=== PATIENT | male | born 1940 | race Caucasian/White ===

== ENCOUNTER 2023-09-19 19:50 | Inpatient (IN) | payer OTHER, MEDICARE ==
--- NOTE | 2023-09-19 19:59 | ED ---
Fall HPI <Julián Landry Amy - Last Filed: 09/19/23 20:05> - General Source: patient, family, EMS Mode of arrival: EMS - History of Present Illness MD Complaint: fall <Julián Tyson - Last Filed: 09/19/23 22:12> - General Chief Complaint: Fall Stated Complaint: Fall on thinner Time Seen by Provider: 09/19/23 19:50 - History of Present Illness Initial Comments: 83-year-old male who was changing a light bulb weakness feeling patient was seen and evaluated as his balance and fell onto a wooden floor striking his left hip. He denies any head neck or back injury any abdominal pain just pain to his left hip area. He was brought in by EMS he was given immediate treatment. He was brought in with a cervical collar. He denies any neck pain. He is on blood thinning medication. No other current complaints or modifying factors he was declared to be a libertarian to trauma. (Julián Tyson) - Related Data Allergies Allergy/AdvReac Type Severity Reaction Status Date / Time No Known Allergies Allergy Verified 09/19/23 19:56 Review of Systems ROS Other: All systems not noted in ROS Statement are negative. <CarlosJulián wang - Last Filed: 09/19/23 20:05> ROS Other: All systems not noted in ROS Statement are negative. <Julián Tyson - Last Filed: 09/19/23 22:12> ROS Statement: Those systems with pertinent positive or pertinent negative responses have been documented in the HPI. General Exam Limitations: no limitations General appearance: alert, anxious Head exam: Present: atraumatic, normocephalic, normal inspection Eye exam: Present: normal appearance, PERRL, EOMI. Absent: scleral icterus, conjunctival injection, periorbital swelling ENT exam: Present: normal exam, mucous membranes moist Neck exam: Present: normal inspection, full ROM, other (No stridor JVD or bruits, I did clear the C-spine clinically and remove the collar.). Absent: tenderness, meningismus, lymphadenopathy Respiratory exam: Present: normal lung sounds bilaterally. Absent: respiratory distress, wheezes, rales, rhonchi, stridor Cardiovascular Exam: Present: normal rhythm, bradycardia, normal heart sounds. Absent: systolic murmur, diastolic murmur, rubs, gallop, clicks GI/Abdominal exam: Present: soft, normal bowel sounds. Absent: distended, tenderness, guarding, rebound, rigid, bruit, pulsatile mass Rectal exam: Present: deferred exam: Present: normal inspection Extremities exam: Present: other (The patient does have shortening and lateral rotation of the left lower extremity with tenderness over the hip he does have a hip binder on at this time.) Back exam: Present: normal inspection, full ROM. Absent: tenderness Neurological exam: Present: alert, oriented X3, CN II-XII intact Psychiatric exam: Present: normal affect, anxious Skin exam: Present: warm, dry, normal color (Abrasion seen over the dorsal aspect of the left hand over the fourth and fifth distal metacarpals.) <Julián Tyson - Last Filed: 09/19/23 22:12> - General Exam Comments Initial Comments: This is a well-developed well-nourished awake alert oriented x 4 male with a [place] Coma Scale 15 he did have a cervical collar in place. (Julián Tyson) Course <Julián Landry - Last Filed: 09/19/23 20:05> <Julián Tyson - Last Filed: 09/19/23 22:12> Vital Signs 09/19/23 19:53 Pulse Rate 48 L Respiratory 16 Rate Blood Pressure 125/68 O2 Sat by Pulse 95 Oximetry - Reevaluation(s) Reevaluation #1: 09/19/231954 Patient evaluated, complaining of left hip pain, no head or neck trauma, no chest or abdominal pain. Traumatic workup is pending. Patient evaluated as a level 2 trauma given mechanism. (Julián Landry) Reevaluation #2: 09/19/23 20:17 Patient was a P2 T trauma I did discuss the case with Dr. Shah who did call back. (Julián Tyson) Medical Decision Making - Lab Data Result diagrams: 09/19/23 19:50 09/19/23 19:50 - EKG Data -: EKG Interpreted by Me <Julián Tyson - Last Filed: 09/19/23 22:12> - Medical Decision Making The patient was brought in as a priority 2 trauma he is on platelet inhibitors he did fall from a bed onto a wooden floor. Workup consisted of labs and imaging. I did interpret the imaging he does have a intertrochanteric fracture of the left hip I did discuss the case initially with Dr. Shah and then finally with Dr. Schuster. Patient will be admitted to orthopedics with surgery sometime tomorrow for repair of the hip likely. Was pt. sent in by a medical professional or institution (, JOSUE, SPLITTER OPERATOR, urgent care, hospital, or retirement...) When possible be specific @ -No Did you speak to anyone other than the patient for history (EMS, parent, family, police, friend...)? What history was obtained from this source @ -EMS and the patient's sister Did you review nursing and triage notes (agree or disagree)? Why? @ -I reviewed and agree with nursing and triage notes Were old charts reviewed (outside hosp., previous admission, EMS record, old EKG, old radiological studies, urgent care reports/EKG's, retirement records)? Report findings @ -No old charts were reviewed Differential Diagnosis (chest pain, altered mental status, abdominal pain women, abdominal pain men, vaginal bleeding, weakness, fever, dyspnea, syncope, headache, dizziness, GI bleed, back pain, seizure, CVA, palpatations, mental health, musculoskeletal)? @ -Fall, left hip pain EKG interpreted by me (3pts min.). @ -As above patient's EKG was interpreted by me sinus bradycardia rate of 54 NV interval 211 QRS duration 110 QT/QTc 490/476 low voltage incomplete right bundle branch block nonspecific ST configuration some artifact present X-rays interpreted by me (1pt min.). @ -Chest x-ray interpreted by me no evidence of acute process the x-ray of the pelvis and left hip shows evidence of a left intertrochanteric hip fracture of t he pelvis does appear to be intact. CT interpreted by me (1pt min.). @ -None done U/S interpreted by me (1pt. min.). @ -None done What testing was considered but not performed or refused? (CT, X-rays, U/S, labs)? Why? @ -None What meds were considered but not given or refused? Why? @ -None Did you discuss the management of the patient with other professionals (professionals i.e. , JOSUE, SPLITTER OPERATOR, lab, RT, psych nurse, social worker assistant, safety clothing and equipment developer, teacher, legal compliance officer, case finisher)? Give summary @ -I did discuss the findings and case with Dr. Shah and with Dr. Schuster the patient was a prior to trauma Was smoking cessation discussed for >3mins.? @ -No Was critical care preformed (if so, how long)? @ -40 Were there social determinants of health that impacted care today? How? (Homelessness, low income, unemployed, alcoholism, drug addiction, transportation, low edu. Level, literacy, decrease access to med. care, shelter, rehab)? @ -No Was there de-escalation of care discussed even if they declined (Discuss DNR or withdrawal of care, Hospice)? DNR status @ -No What co-morbidities impacted this encounter? (DM, HTN, Smoking, COPD, CAD, Cancer, CVA, ARF, Chemo, Hep., AIDS, mental health diagnosis, sleep apnea, morbid obesity)? @ -None Was patient admitted / discharged? Hospital course, mention meds given and route, prescriptions, significant lab abnormalities, going to OR and other pertinent info. @ -Hospital course patient was admitted to the hospital for inpatient treatment planned repair of the left hip fracture n.p.o. after midnight Undiagnosed new problem with uncertain prognosis? @ -No Drug Therapy requiring intensive monitoring for toxicity (Heparin, Nitro, Insulin, Cardizem)? @ -No Were any procedures done? @ -No Diagnosis/symptom? @ -Acute left hip fracture, fall, abrasions Acute, or Chronic, or Acute on Chronic? @ -Acute Uncomplicated (without systemic symptoms) or Complicated (systemic symptoms)? @ -Complicated Side effects of treatment? @ -No Exacerbation, Progression, or Severe Exacerbation? @ -No Poses a threat to life or bodily function? How? (Chest pain, [place], [place], pneumonia, PE, COPD, DKA, ARF, appy, cholecystitis, CVA, Diverticulitis, Homicidal, Suicidal, threat to staff... and all critical care pts) @ -Potential (Julián Tyson) - Lab Data Lab Results 09/19/23 09/19/23 09/19/23 Range/Units 19:40 19:50 19:50 WBC 4.5 (3.8-10.6) k/uL RBC 3.75 L (4.30-5.90) m/uL Hgb 12.2 L (13.0-17.5) gm/dL Hct 37.0 L (39.0-53.0) % MCV 98.7 (80.0-100.0) fL MCH 32.5 (25.0-35.0) pg MCHC 33.0 (31.0-37.0) g/dL RDW 15.0 (11.5-15.5) % Plt Count 141 L (150-450) k/uL MPV 7.6 Neutrophils % 73 % Lymphocytes % 19 % Monocytes % 4 % Eosinophils % 2 % Basophils % 1 % Neutrophils # 3.3 (1.3-7.7) k/uL Lymphocytes # 0.9 L (1.0-4.8) k/uL Monocytes # 0.2 (0-1.0) k/uL Eosinophils # 0.1 (0-0.7) k/uL Basophils # 0.0 (0-0.2) k/uL Macrocytosis Slight PT 10.9 (10.0-12.5) sec INR 1.0 (<1.2) APTT 23.1 (22.0-30.0) sec Sodium (137-145) mmol/L Potassium (3.5-5.1) mmol/L Chloride (98-107) mmol/L Carbon Dioxide (22-30) mmol/L Anion Gap mmol/L BUN (9-20) mg/dL Creatinine (0.66-1.25) mg/dL Est GFR (CKD-EPI)AfAm (>60 ml/min/1.73 sqM) Est GFR (CKD-EPI)NonAf (>60 ml/min/1.73 sqM) Glucose (74-99) mg/dL POC Glucose (mg/dL) (70-110) mg/dL POC Glu [employer] T[employer] Trimmer ID Calcium (8.4-10.2) mg/dL Total Bilirubin (0.2-1.3) mg/dL AST (17-59) U/L ALT (4-49) U/L Alkaline Phosphatase (38-126) U/L Troponin I (0.000-0.034) ng/mL Total Protein (6.3-8.2) g/dL Albumin (3.5-5.0) g/dL Serum Alcohol mg/dL Blood Type Blood Type Confirm O Positive Blood Type Recheck Bld Type Recheck Status Antibody Screen Spec Expiration Date 09/19/23 09/19/23 09/19/23 Range/Units 19:50 19:50 19:50 WBC (3.8-10.6) k/uL RBC (4.30-5.90) m/uL Hgb (13.0-17.5) gm/dL Hct (39.0-53.0) % MCV (80.0-100.0) fL MCH (25.0-35.0) pg MCHC (31.0-37.0) g/dL RDW (11.5-15.5) % Plt Count (150-450) k/uL MPV Neutrophils % % Lymphocytes % % Monocytes % % Eosinophils % % Basophils % % Neutrophils # (1.3-7.7) k/uL Lymphocytes # (1.0-4.8) k/uL Monocytes # (0-1.0) k/uL Eosinophils # (0-0.7) k/uL Basophils # (0-0.2) k/uL Macrocytosis PT (10.0-12.5) sec INR (<1.2) APTT (22.0-30.0) sec Sodium 135 L (137-145) mmol/L Potassium 3.4 L (3.5-5.1) mmol/L Chloride 106 (98-107) mmol/L Carbon Dioxide 23 (22-30) mmol/L Anion Gap 6 mmol/L BUN 13 (9-20) mg/dL Creatinine 0.81 (0.66-1.25) mg/dL Est GFR (CKD-EPI)AfAm >90 (>60 ml/min/1.73 sqM) Est GFR (CKD-EPI)NonAf 83 (>60 ml/min/1.73 sqM) Glucose 119 H (74-99) mg/dL POC Glucose (mg/dL) (70-110) mg/dL POC Glu [employer] Trimmer ID Calcium 9.1 (8.4-10.2) mg/dL Total Bilirubin 0.8 (0.2-1.3) mg/dL AST 20 (17-59) U/L ALT 14 (4-49) U/L Alkaline Phosphatase 101 (38-126) U/L Troponin I <0.012 (0.000-0.034) ng/mL Total Protein 6.1 L (6.3-8.2) g/dL Albumin 3.6 (3.5-5.0) g/dL Serum Alcohol <10 mg/dL Blood Type O Positive Blood Type Confirm Blood Type Recheck No Previous Record Bld Type Recheck Status CABO Indicated Antibody Screen NEGATIVE Spec Expiration Date 09/22/2023 - 234909/19/23 Range/Units 20:16 WBC (3.8-10.6) k/uL RBC (4.30-5.90) m/uL Hgb (13.0-17.5) gm/dL Hct (39.0-53.0) % MCV (80.0-100.0) fL MCH (25.0-35.0) pg MCHC (31.0-37.0) g/dL RDW (11.5-15.5) % Plt Count (150-450) k/uL MPV Neutrophils % % Lymphocytes % % Monocytes % % Eosinophils % % Basophils % % Neutrophils # (1.3-7.7) k/uL Lymphocytes # (1.0-4.8) k/uL Monocytes # (0-1.0) k/uL Eosinophils # (0-0.7) k/uL Basophils # (0-0.2) k/uL Macrocytosis PT (10.0-12.5) sec INR (<1.2) APTT (22.0-30.0) sec Sodium (137-145) mmol/L Potassium (3.5-5.1) mmol/L Chloride (98-107) mmol/L Carbon Dioxide (22-30) mmol/L Anion Gap mmol/L BUN (9-20) mg/dL Creatinine (0.66-1.25) mg/dL Est GFR (CKD-EPI)AfAm (>60 ml/min/1.73 sqM) Est GFR (CKD-EPI)NonAf (>60 ml/min/1.73 sqM) Glucose (74-99) mg/dL POC Glucose (mg/dL) 130 H (70-110) mg/dL POC Glu [employer] T[employer] Trimmer ID Apolinar Roa Calcium (8.4-10.2) mg/dL Total Bilirubin (0.2-1.3) mg/dL AST (17-59) U/L ALT (4-49) U/L Alkaline Phosphatase (38-126) U/L Troponin I (0.000-0.034) ng/mL Total Protein (6.3-8.2) g/dL Albumin (3.5-5.0) g/dL Serum Alcohol mg/dL Blood Type Blood Type Confirm Blood Type Recheck Bld Type Recheck Status Antibody Screen Spec Expiration Date Critical Care Time Critical Care Time: Yes Total Critical Care Time: 40 <Julián Tyson - Last Filed: 09/19/23 22:12> Disposition <Julián Landry - Last Filed: 09/19/23 20:05> Time of Disposition: 21:30 Decision Date: 09/19/23 Decision Time: 21:30 <Julián Tyson - Last Filed: 09/19/23 22:12> Clinical Impression: Fall, Closed left hip fracture, Abrasions of multiple sites Disposition: ADMITTED IP TO THIS [facility] Condition: Stable Referrals: [facility] [Primary Care Provider] - 1-2 days
[2023-09-19] MEDS: DIPH,PERTUS(ACELL)TETVAC-LF 0.5 ML VIAL IM ONE (20:07)
[2023-09-19 20:19] LABS: Basophils % (A) 1 %; Eosinophils # (A) 0.1 k/uL (0-0.7); Eosinophils % (A) 2 %; HGB 12.2 gm/dL (13.0-17.5); Lymphocytes # (A) 0.9 k/uL (1.0-4.8); Lymphocytes % (A) 19 %; MCH 32.5 pg (25.0-35.0); MCV 98.7 fL (80.0-100.0); Macrocytosis Slight; Mean Platelet Volume 7.6; Monocytes # (A) 0.2 k/uL (0-1.0); Monocytes % (A) 4 %; Neutrophils # (A) 3.3 k/uL (1.3-7.7); Neutrophils % (A) 73 %; Platelet Count 141 k/uL (150-450); RBC 3.75 m/uL (4.30-5.90); WBC 4.5 k/uL (3.8-10.6)
[2023-09-19 20:27] LABS: Glucose,Whole Blood 130 mg/dL (70-110)
[2023-09-19 20:28] LABS: Partial Thromboplastin Time 23.1 sec (22.0-30.0); Prothrombin Time 10.9 sec (10.0-12.5)
[2023-09-19 20:30] LABS: ALT 14 U/L (4-49); AST 20 U/L (17-59); African American GFR (CKD) >90 (>60 ml/min/1.73 sqM); Albumin 3.6 g/dL (3.5-5.0); Alcohol <10 mg/dL; Alkaline Phosphatase 101 U/L (38-126); Anion Gap 6 mmol/L; Blood Urea Nitrogen 13 mg/dL (9-20); Calcium 9.1 mg/dL (8.4-10.2); Carbon Dioxide 23 mmol/L (22-30); Chloride 106 mmol/L (98-107); Glucose 119 mg/dL (74-99); Non-African American GFR(CKD) 83 (>60 ml/min/1.73 sqM); Potassium 3.4 mmol/L (3.5-5.1); Sodium 135 mmol/L (137-145); Total Bilirubin 0.8 mg/dL (0.2-1.3); Total Protein 6.1 g/dL (6.3-8.2)
--- NOTE | 2023-09-19 20:51 | XR ---
EXAMINATION: XR chest 1V portable DATE AND TIME: 09/19/2023 8:13 PM CLINICAL INDICATION: PHH; trauma TECHNIQUE: Supine AP portable COMPARISON: None FINDINGS: The lungs are predominantly clear. There is mild silhouetting of the pulmonary vasculature bilaterall y, particularly within the lung bases, by a fine reticular pattern of increased density. This could c orrelate with the clinical diagnosis of mild interstitial pulmonary edema. There are no abnormal gas collections seen. However, pneumothorax and pneumoperitoneum cannot be excl uded supine radiography. The cardiac silhouette is not enlarged. The mediastinum does not appear widened. The skeletal structures and soft tissues are negative for acute findings. IMPRESSION: No definite acute radiographic process, although mild interstitial phase pulmonary edema may be prese nt.
--- NOTE | 2023-09-19 20:54 | XR ---
PROCEDURE: XR pelvis AP view - 1V DATE AND TIME: 09/19/2023 8:13 PM CLINICAL INDICATION: PHH; Trauma TECHNIQUE: Department protocol COMPARISON: None FINDINGS / IMPRESSION: There is an oblique lucency through the intertrochanteric region of the left femur, consistent with i ntertrochanteric hip fracture. No other fracture.
--- NOTE | 2023-09-19 21:01 | XR ---
PROCEDURE: XR Hip Complete LT - 2V DATE AND TIME: 09/19/2023 8:48 PM CLINICAL INDICATION: PHH; Trauma TECHNIQUE: Department protocol COMPARISON: None FINDINGS / IMPRESSION: AP and crosstable lateral views were obtained. Left intertrochanteric hip fracture seen, which appear s noncomminuted and nondisplaced. Femoral head well seated within the acetabulum.
[2023-09-19] MEDS ORDERED: NALOXONE 0.4 MG/ML 1 ML VIAL IV PRN (22:14)
[2023-09-19] MEDS: SODIUM CHLORIDE 0.9% 1,000 ML IV SCH (23:35)
[2023-09-19] MEDS: HYDROmorphone 1 MG/ML 1 ML SYRINGE IVP PRN (23:36)
[2023-09-20] MEDS: ONDANSETRON 4 MG/2 ML VIAL IVP PRN (00:12)
--- NOTE | 2023-09-20 05:21 | P.CONS ---
History of Present Illness - Reason for Consult Consult date: 09/20/23 Preop medical clearance - Chief Complaint Fall - History of Present Illness 83-year-old male with HIV Patient coming in for evaluation after sustaining a fall and as he was up a ladder trying to replace some lighting on a ceiling fan missed a step and fell down denies any head injury denies any loss of consciousness however he immediately felt a lot of pain and could not stand up or weight-bear he was brought into the hospital for evaluation found to have left hip fracture. Patient denies being on any blood thinners or antiplatelets. Denies any cardiac history or stroke Patient feeling fine at this time of my evaluation denies any chest pain or trouble breathing denies any headache changes in vision or hearing denies any focal neurodeficits Patient has history of HIV claims to be on medications with good control with high CD4 count Patient admits to heavy smoking denies any illicit drugs or alcohol review of systems Pertinent positives as noted in HPI. All other systems were reviewed and are negative on exam Constitutional: No acute distress, conversant, pleasant Eyes: Anicteric sclerae, moist conjunctiva, Pupils equal round reactive to light ENMT: NC/AT Oropharynx clear, no erythema, or exudates Neck: Supple, no masses, or JVD No carotid bruits No thyromegaly Lungs: Clear to auscultation Clear to percussion Normal respiratory effort, no accessory muscle use Cardiovascular: Heart regular in rate and rhythm, No murmurs, gallops, or rubs No peripheral edema Abdominal: Soft Nontender, no guarding, rebound or rigidity Abdomen moving with respiration Normoactive bowel sounds Extremities: No digital cyanosis No clubbing Pedal pulses intact and symmetrical Radial pulses intact and symmetrical No calf tenderness Psychiatric: Alert and oriented to person, place and time Appropriate affect fair judgement Neuro Muscles Strength 5/5 in all 4 extremities with limitation of exam of the left lower extremity due to hip pain Sensation to light touch grossly present throughout Cranial nerves II-XII grossly intact Past Medical History Additional Past Medical History / Comment(s): HIV+ History of Any Multi-Drug Resistant Organisms: None Reported Past Anesthesia/Blood Transfusion Reactions: No Reported Reaction Past Psychological History: No Psychological Hx Reported Smoking Status: Current every day smoker Past Alcohol Use History: Rare Past Drug Use History: Marijuana Medications and Allergies Home Medications Medication Instructions Recorded Confirmed Type Atorvastatin Calcium 40 mg PO 09/20/23 History Clopidogrel [Plavix] 09/20/23 History Cobicistat [Tybost] 150 mg PO 09/20/23 History Darunavir Ethanolate [Darunavir] 800 mg PO 09/20/23 History Dolutegravir Sodium [Tivicay] 50 mg PO 09/20/23 History Emtricitabine/Tenofovir (Tdf) 09/20/23 History [Truvada 200 mg-300 mg Tablet] Allergies Allergy/AdvReac Type Severity Reaction Status Date / Time No Known Allergies Allergy Verified 09/19/23 19:56 Physical Exam Vitals: Vital Signs Temp Pulse Pulse Resp BP BP Pulse Ox 09/20/23 00:15 97.4 F L 74 20 146/78 95 09/19/23 23:38 66 18 131/65 94 L 09/19/23 22:39 73 16 125/64 94 L 09/19/23 19:53 97.5 F L 48 L 16 125/68 95 Intake and Output 09/19/23 09/19/23 09/20/23 14:59 22:59 06:59 Other: Weight 66.8 kg 66.8 kg Results CBC & Chem 7: 09/19/23 19:50 09/19/23 19:50 Labs: Abnormal Lab Results - Last 24 Hours (Table) 09/19/23 09/19/23 09/19/23 Range/Units 19:50 19:50 20:16 RBC 3.75 L (4.30-5.90) m/uL Hgb 12.2 L (13.0-17.5) gm/dL Hct 37.0 L (39.0-53.0) % Plt Count 141 L (150-450) k/uL Lymphocytes # 0.9 L (1.0-4.8) k/uL Sodium 135 L (137-145) mmol/L Potassium 3.4 L (3.5-5.1) mmol/L Glucose 119 H (74-99) mg/dL POC Glucose (mg/dL) 130 H (70-110) mg/dL Total Protein 6.1 L (6.3-8.2) g/dL Assessment and Plan Assessment: 83-year-old male coming in with left hip fracture patient denies any recent history of heart attack congestive heart failure seizure or arrhythmia. Patient denies any history of coronary artery disease CHF diabetes mellitus or CKD. He recalls a vague possible history of stroke without any residual weakness years ago. Patient is able to function at METS >4 he climbs 2 flights of stairs with no limitations does house chores and yard work without suffering from any chest pains or trouble breathing. Patient blood work was reviewed, EKG no acute ST changes no arrhythmia. Patient can proceed to planned surgery of left hip repair with moderate to high perioperative cardiovascular risk due to age and possible history of stroke, however without any modifiable risk factors at this time this was explained to the patient who verbalized understanding all questions answered. HIV Continue antiretroviral therapy Continue outpatient follow-up Hyperlipidemia Continue statin Questionable history of stroke without residual weakness Hold Plavix for now due to anticipated surgery Continue with statin Blood work showing white count 4.5 hemoglobin 12.2 platelet 141 Sodium 135 potassium 3.4 BUN 13 creatinine 0.8 Troponin negative Blood alcohol less than 10 Overall blood work is unremarkable Thank you for this consultation
--- NOTE | 2023-09-20 09:04 | P.HPOR ---
History of Present Illness H&P Date: 09/20/23 Chief Complaint: Left femur fracture patient is an 83-year-old male who presented to [facility] on 09/19/2023 after falling at home. Patient was up on a stepstool changing a light bulb when he lost his balance falling onto his left side. Patient was brought to the hospital by EMS, he underwent multiple imaging and lab test. Patient denied hitting his head or losing consciousness during the fall. Imaging did demonstrate a left intertrochanteric femur fracture. We were contacted by the emergency room staff, patient was admitted under our orthopedic care with plan for likely surgical intervention. Internal medicine was consulted for medical management. Patient was evaluated at bedside today, he is resting comfortably. He notes significant discomfort in his hip with movement. He denies any right lower extremity pain. He denies any bilateral upper extremity pain. He denies any knee, lower leg, foot or ankle pain on the left-hand side. He denies any new onset headaches. patient denies any previous history to the left hip. Patient does live alone, he does not normally utilize any assistive devices with ambulation. He has multiple family members that live close to him. Patient does take Plavix for a remote history of stroke. Patient does follow at the [facility] and [facility] for his primary care. Review of Systems Constitutional: Reports as per HPI Past Medical History Additional Past Medical History / Comment(s): HIV+ History of Any Multi-Drug Resistant Organisms: None Reported Past Anesthesia/Blood Transfusion Reactions: No Reported Reaction Past Psychological History: No Psychological Hx Reported Smoking Status: Current every day smoker Past Alcohol Use History: Rare Past Drug Use History: Marijuana Medications and Allergies Home Medications Medication Instructions Recorded Confirmed Type Atorvastatin Calcium 40 mg PO 09/20/23 History Clopidogrel [Plavix] 09/20/23 History Cobicistat [Tybost] 150 mg PO 09/20/23 History Darunavir Ethanolate [Darunavir] 800 mg PO 09/20/23 History Dolutegravir Sodium [Tivicay] 50 mg PO 09/20/23 History Emtricitabine/Tenofovir (Tdf) 09/20/23 History [Truvada 200 mg-300 mg Tablet] Allergies Allergy/AdvReac Type Severity Reaction Status Date / Time No Known Allergies Allergy Verified 09/19/23 19:56 Physical Examination Left lower extremity: No open lesions or sores present, no areas of erythema. Soft tissue swelling noted In the lateral thigh. Obvious shortening and external rotation of the lower extremities compared to the contralateral side tenderness with palpation to the proximal thigh and lateral aspect of the thigh. Logroll maneuver reproduces obvious pain. Patient is unable to straight leg raise. No tenderness with palpation surrounding the knee, lower leg, foot or ankle plantarflexion, dorsiflexion, EHL, FHL are intact calf is soft, no tenderness with palpation dorsalis pedis pulses 2+ Results - Labs Labs: Abnormal Lab Results - Last 24 Hours (Table) 09/19/23 09/19/23 09/19/23 Range/Units 19:50 19:50 20:16 RBC 3.75 L (4.30-5.90) m/uL Hgb 12.2 L (13.0-17.5) gm/dL Hct 37.0 L (39.0-53.0) % Plt Count 141 L (150-450) k/uL Lymphocytes # 0.9 L (1.0-4.8) k/uL Sodium 135 L (137-145) mmol/L Potassium 3.4 L (3.5-5.1) mmol/L Glucose 119 H (74-99) mg/dL POC Glucose (mg/dL) 130 H (70-110) mg/dL Total Protein 6.1 L (6.3-8.2) g/dL H & H 09/19/23 Range/Units 19:50 Hgb 12.2 L (13.0-17.5) gm/dL Hct 37.0 L (39.0-53.0) % Coagulation 09/19/23 Range/Units 19:50 INR 1.0 (<1.2) Result Diagrams: 09/19/23 19:50 09/19/23 19:50 - Diagnostic results Hip x-ray: report reviewed, image reviewed ( report and images are reviewed of the AP pelvis and AP and lateral left hip. Images demonstrate displaced intertrochanteric femur fracture with slight subtrochanteric extension) Assessment and Plan Assessment: displaced left intertrochanteric femur fracture with subacute trochanteric status post fall from standing other medical comorbidities Plan: after discussion of treatment options with patient today at bedside, we are recommending surgery, more specifically an intramedullary nail to help stabilize the fracture. Risk and benefits of the procedure were discussed with the patie nt, this to include but not exclude infection, blood loss, neurovascular injury, development of blood clots, pain and stiffness, and adequate healing of bone, need for further surgery. Patient is in good understanding and would like to proceed surgery scheduled for 09/21/2023 regular diet at this time, n.p.o. after midnight discussed possibility of urinary catheter if patient is unable to use bedside urical nonweightbearing left lower extremity at this time DVT prophylaxis, hold Plavix at this time, will resume after surgery PT/OT evaluation after surgery medical recommendations appreciated further recommendations to follow Time with Patient: Less than 30
[2023-09-20 09:37] LABS: African American GFR (CKD) >90 (>60 ml/min/1.73 sqM); Anion Gap 7 mmol/L; Blood Urea Nitrogen 10 mg/dL (9-20); Calcium 8.8 mg/dL (8.4-10.2); Carbon Dioxide 17 mmol/L (22-30); Chloride 111 mmol/L (98-107); Glucose 112 mg/dL (74-99); Non-African American GFR(CKD) 89 (>60 ml/min/1.73 sqM); Potassium 4.5 mmol/L (3.5-5.1); Sodium 135 mmol/L (137-145)
[2023-09-20 11:05] LABS: HCT 41.8 % (39.0-53.0); HGB 13.4 gm/dL (13.0-17.5); MCH 32.2 pg (25.0-35.0); MCV 100.9 fL (80.0-100.0); Macrocytosis Slight; Mean Platelet Volume 8.1; Platelet Count 167 k/uL (150-450); RBC 4.14 m/uL (4.30-5.90); RDW 14.9 % (11.5-15.5); WBC 6.9 k/uL (3.8-10.6)
[2023-09-20 15:03] LABS: Appearance,Urine Clear (Clear); Bilirubin,Urine Negative (Negative); Blood,Urine Large (Negative); Color,Urine Yellow; Glucose,Urine (UA) Negative (Negative); Ketones,Urine Negative (Negative); Leukocyte Esterase,Urine Negative (Negative); Mucus,Urine Moderate /hpf; Nitrite,Urine Negative (Negative); PH, Urine 5.5 (5.0-8.0); Protein,Urine 1+ (Negative); RBC,Urine >182 /hpf (0-5); Specific Gravity,Urine 1.025 (1.001-1.035); Squamous Epithelial Cell,Urine <1 /hpf (0-4); WBC,Urine 6 /hpf (0-5)
[2023-09-20 15:14] LABS: Amphetamine Screen,Urine Not Detected (NotDetected); Barbiturate Screen,Urine Not Detected (NotDetected); Benzodiazepines Screen,Urine Not Detected (NotDetected); Cocaine Screen,Urine Not Detected (NotDetected); Methadone Screen, Urine Not Detected (NotDetected); Opiate Screen,Urine Detected (NotDetected); Oxycodone Screen, Urine Not Detected (NotDetected); Phencyclidine Screen,Urine Not Detected (NotDetected); Tricyclic Antidepressant,Urine Not Detected (NotDetected); Urn Cannabinoid Scrn Not Detected (NotDetected)
--- NOTE | 2023-09-20 15:54 | P.PN ---
Subjective Progress Note Date: 09/20/23 Hospital course: Patient is a 83-year-old male with a past medical history of HIV, marijuana use, questionable history of a stroke on Plavix and nicotine dependence. He presented to the hospital on 09/19/2023 after a fall resulting in left hip pain. Patient was standing on a ladder trying to replace a light bulb on ceiling fan when he reportedly missed a step and fell onto his left hip onto the hardwood floor. He underwent evaluation in the emergency department and was found to h ave a left intertrochanteric hip fracture. His laboratory analysis also revealed bicytopenia with hemoglobin of 12.2 and platelet count of 141 along with mild hypokalemia with potassium of 3.4. Patient was admitted under orthopedic surgery team and we were consulted for medical clearance and medical management throughout hospitalization. Physical exam: Patient seen and fully evaluated at bedside. Patient with moderate reports moderate amount of pain at this time. Vital signs reviewed and stable. General: Nontoxic, no distress and appears stated age. Derm: Skin warm and dry, normal coloration for ethnicity. Head: Atraumatic, normocephalic and symmetric. Eyes: EOMs intact, no lid lag, and anicteric sclera Mouth: no lip lesions, mucus membranes moist Cardiovascular: regular rate and rhythm with normal S1S2, no murmur, positive posterior tibial pulses bilaterally, and cap refill < 2 seconds. Lungs: Respirations even, regular, and unlabored on room air. Lungs CTA bilaterally, no rhonchi, no rales, no wheezing, and no accessory muscle usage. Abdominal: soft, nontender to palpation, no guarding, no appreciable organomegaly Ext: No gross muscle atrophy, no edema, no contractures. Movement and sensation intact. Neuro: Speech clear, face symmetrical and CN II-XII grossly intact with no noted focal neuro deficits Psych: Alert and oriented to person, place, time, and situation. Appropriate and pleasant affect. Assessment and Plan of Care: Left intertrochanteric hip fracture -Management per primary admitting orthopedic surgery team. Planning to take patient for intramedullary nailing of left hip to stabilize fracture on 09/21/2023. -Patient medically optimized to undergo urgent procedure without further need of testing at this time. -We will continue to follow labs closely. Bicytopenia with anemia and thrombocytopenia. Resolved Hypokalemia. Resolved. HIV Continue antiretroviral therapy Continue outpatient follow-up Hyperlipidemia Continue atorvastatin 40 mg nightly. Questionable history of stroke without residual weakness Hold Plavix for now due to anticipated surgery Data reviewed: Repeat morning labs reviewed. CBC showing resolution of bicytopenia with hemoglobin of 13.4 and platelet count of 167. BMP showing resolution of hypokalemia with potassium of 4.5. Magnesium normal findings at 2.0. Vital signs reviewed. Blood pressure 127/63, heart rate 78, respiratory rate 19, temp 98.1 F, and SpO2 of 91% on room air. Thank you for allowing us to participate in the care of this pleasant patient. Do not hesitate to contact us with questions. Someone can be reached from the [facility] hospitalist group all hours of the day at [phone] or via to be. Patient was seen independently by Nurse Pracitioner. This document was prepared using [employer] dictation software. Please allow for errors in pie cutter, while rare they do occur. I reviewed the documentation as provided by the FRANCY above, who is the original author of this note. I agree with the documented assessment and plan, with the following changes: none Objective - Vital Signs Vital signs: Vital Signs Temp 98.1 F 09/20/23 07:14 Pulse 78 09/20/23 07:14 Resp 19 09/20/23 07:14 BP 127/63 09/20/23 07:14 Pulse Ox 91 L 09/20/23 07:14 FiO2 Intake & Output 09/19/23 09/20/23 09/20/23 18:59 06:59 18:59 Weight 66.8 kg - Labs CBC & Chem 7: 09/21/23 10:54 09/21/23 06:35 Labs: Abnormal Lab Results - Last 24 Hours (Table) 09/19/23 09/19/23 09/19/23 Range/Units 19:50 19:50 20:16 RBC 3.75 L (4.30-5.90) m/uL Hgb 12.2 L (13.0-17.5) gm/dL Hct 37.0 L (39.0-53.0) % Plt Count 141 L (150-450) k/uL Lymphocytes # 0.9 L (1.0-4.8) k/uL Sodium 135 L (137-145) mmol/L Potassium 3.4 L (3.5-5.1) mmol/L Glucose 119 H (74-99) mg/dL POC Glucose (mg/dL) 130 H (70-110) mg/dL Total Protein 6.1 L (6.3-8.2) g/dL
[2023-09-20] MEDS ORDERED: traMADol 50 MG TAB PO PRN (16:43)
[2023-09-20] MEDS ORDERED: MORPHINE SULFATE 2 MG/ML SYRINGE IVP PRN ×2 (16:43)
[2023-09-20] MEDS ORDERED: MAGNESIUM HYDROXIDE 2,400 MG/30 ML CUP PO PRN (16:45)
[2023-09-20] MEDS: HYDROcodone/APAP 5-325MG 1 EACH TAB PO PRN (17:00)
[2023-09-20] MEDS: SYMTUZA PO SCH (17:10)
[2023-09-20] MEDS: DOLUTEGRAVIR SODIUM 50 MG TABLET PO SCH (17:11)
[2023-09-20] MEDS: EMTRICITABINE/TENOFOVIR 200MG/300MG PO SCH (17:11)
--- NOTE | 2023-09-20 17:30 | CT ---
EXAMINATION TYPE: CT pelvis w con DATE OF EXAM: 09/20/2023 COMPARISON: None HISTORY: fall ladder, hip fx blood urine r/o bladder rupture. CT DLP: 676.6 mGycm Automated exposure control for dose reduction was used. Contrast enhanced CT of the pelvis with bone and soft tissue window settings submitted. Images are reviewed in the axial coronal and sagittal plan es CONTRAST: Performed with IV Contrast, patient injected with 100ml mL of Isovue 300. FINDINGS: Left-sided intertrochanteric fracture is identified. No additional fractures are seen at this time. F oley balloon catheter seen within the urinary bladder. Not see evidence for fluid adjacent to the uri nary bladder to suggest rupture. 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 No p elvic mass. No pelvic hematoma identified. Severe degenerative changes lower lumbar spine. IMPRESSION: 1. Left-sided intertrochanteric fracture. 2. No evidence of ruptured urinary bladder. Ojeda catheter is in place. Incidental urachal remnant.
--- NOTE | 2023-09-20 17:33 | XR ---
EXAMINATION TYPE: XR Hip Complete LT DATE OF EXAM: 09/20/2023 CLINICAL HISTORY: pain TECHNIQUE: AP and frogleg views of the left hip are obtained. COMPARISON: 09/19/2023 FINDINGS: Left-sided intertrochanteric fracture is demonstrated with interval greater displacement si nce prior of 1.9 cm versus 8 mm previously. The joint space appears mildly narrowed. The overlying s oft tissue appears unremarkable. Contrast is seen within the urinary bladder Ojeda catheter seen. No evidence of urinary bladder rupture. IMPRESSION: 1. Left-sided intertrochanteric fracture with greater displacement noted at this time.
[2023-09-20] MEDS: ACETAMINOPHEN IV (For NPO) 1,000 MG in EMPTY BAG 1 BAG IVPB SCH (18:24)
[2023-09-20] MEDS: ATORVASTATIN 40 MG TAB PO SCH (21:40)
[2023-09-21] MEDS: SODIUM CHLORIDE 0.9% 1,000 ML IV ONE ×2 (08:09→11:00)
[2023-09-21] MEDS ORDERED: MIDAZOLAM 2 MG/2 ML VIAL ONE (08:09)
[2023-09-21] MEDS ORDERED: PROPOFOL 10 MG/ML 20 ML VIAL IV ONE (08:09)
[2023-09-21] MEDS ORDERED: ONDANSETRON 4 MG/2 ML VIAL ONE (08:09)
[2023-09-21] MEDS ORDERED: LIDOCAINE 1% INJ 10MG/ML (20 ML MDV) ONE (08:09)
[2023-09-21] MEDS ORDERED: SUCCINYLCHOLINE CHLORIDE 200 MG/10 ML VIAL IV ONE (08:09)
[2023-09-21] MEDS ORDERED: PHENYLEPHRINE-0.9% NACL SYG 1,000 MCG/10 ML SYRINGE ONE (08:09)
[2023-09-21] MEDS ORDERED: fentaNYL (PF) 50 MCG/ML 2 ML AMP ONE (08:09)
[2023-09-21] MEDS: SODIUM CHLORIDE 0.9% 100 ML with ceFAZolin 2,000 MG IV ONE (08:18)
[2023-09-21] MEDS: ceFAZolin 1,000 MG in SODIUM CHLORIDE 0.9% 1,000 ML IRRIGATION ONE (08:42)
--- NOTE | 2023-09-21 09:17 | FL ---
Fluoroscopy History: IT Nail-Left Hip fl time 48.7 sec dap 3.5590 left IT nail with doctor Mariely
[2023-09-21] MEDS ORDERED: HYDROmorphone 0.5 MG/0.5 ML SYRINGE IVP PRN ×3 (09:29)
[2023-09-21] MEDS ORDERED: ONDANSETRON 4 MG/2 ML VIAL IVP PRN (09:29)
[2023-09-21] MEDS ORDERED: NALOXONE 0.4 MG/ML 1 ML VIAL IV PRN (09:29)
--- NOTE | 2023-09-21 09:29 | P.OP ---
Date of Procedure: 09/21/23 Preoperative Diagnosis: Left hip intertrochanteric fracture Postoperative Diagnosis: Left hip intertrochanteric fracture Procedure(s) Performed: Intramedullary trochanteric nailing left hip Implants: 1. Synthes 11 mm x 130 angle trochanteric femoral nail 170 mm length 2. Synthes helical blade 11 x 110 3. Synthes 5 mm x 36 mm distal locking screw Anesthesia: GETA Surgeon: Segun Schuster Estimated Blood Loss (ml): 25 Pathology: none sent Condition: stable Disposition: PACU Indications for Procedure: 83-year-old patient seen with a left hip intertrochanteric fracture. I discussed intramedullary trochanteric nailing. Patient was agreeable. Consent was obtained. Operative Findings: See description of procedure Description of Procedure: Patient was taken to the operative suite. He underwent a general anesthetic by the department of anesthesia. He was then transferred to the operative table/[place] table. The left lower extremities placed in standard longitudinal traction with internal rotation and adduction. Right lower extremity placed in a well-padded well leg dillon. C-arm was brought to the operative field noting adequate reduction of the fracture. This was noted both on AP and lateral intraoperative imaging. The C-arm was pulled back. The left hip was prepped and draped in the normal sterile orthopedic fashion. An incision was made just proximal to the greater trochanter. I dissected down to the IT band and split the IT band longitudinally. I now introduced a guidewire into the tip of the greater trochanter extending down into the intramedullary canal. I confirmed this on AP and lateral intraoperative imaging. I now used a opening reamer. I now shows a 11 mm x 178 mm Synthes intramedullary trochanteric nail. It was placed over the guidepin was placed down into the intramedullary canal and tapped down entering the proximal femoral canal. I now utilizing out regular made an incision laterally and then a guidewire was sent into the head neck complex. I confirmed that on AP and lateral intraoperative imaging. It was depth gauge to 110 mm. We now reamed over the guidewire and then introduced our helical blade it was now locked and then 1 turn back to allow dynamization. I now placed the outrigger guide for a distal locking screw. An incision was made distally for that. I then made a drill hole through the distal locking screw and introduced a 5 mm x 36 mm distal locking screw which had excellent bicortical purchase and fixation. The outrigger was removed. The entire construct was now reviewed under AP and lateral intraoperative imaging. We had good positioning our internal fixation and good reduction of the fracture. Spot films were obtained to document that. The wound was irrigated copiously. The IT band was repaired with #1 Vicryl. The subcutaneous soft tissue repaired with 2-0 Vicryl. The skin margins were repaired with skin zhao. Sterile dressings were applied. The patient was awakened, transferred to bed and recovery in stable condition.
[2023-09-21 09:41] LABS: HCT 31.7 % (39.6-50.0); HGB 10.4 g/dL (13.0-17.0); MCH 32.4 pg (27.0-32.0); MCHC 32.8 g/dL (32.0-37.0); MCV 98.8 FL (80.0-97.0); Mean Platelet Volume 9.7 FL (9.5-12.2); NRBC Per 100 WBC 0 X 10*3/uL (0.00-0.01); Platelet Count 107 X 10*3/uL (140-440); RBC 3.21 X 10*6/uL (4.40-5.60); RDW 14.9 % (11.5-14.5); WBC 4.46 X 10*3/uL (4.50-10.00)
[2023-09-21 09:52] LABS: Calcium 8.3 mg/dL (8.7-10.3); Carbon Dioxide 22.1 mmol/L (21.6-31.8); Chloride 108 mmol/L (96-109); Glucose 101 mg/dL (70-110); Potassium 3.8 mmol/L (3.5-5.5); Sodium 138 mmol/L (135-145)
[2023-09-21 11:20] LABS: Basophils % (A) 1 %; Eosinophils # (A) 0.2 k/uL (0-0.7); Eosinophils % (A) 2 %; HCT 34.1 % (39.0-53.0); HGB 10.9 gm/dL (13.0-17.5); Hypochromasia Slight; Lymphocytes # (A) 0.6 k/uL (1.0-4.8); Lymphocytes % (A) 9 %; MCH 32.5 pg (25.0-35.0); MCHC 32.1 g/dL (31.0-37.0); MCV 101.4 fL (80.0-100.0); Macrocytosis Slight; Mean Platelet Volume 7.7; Monocytes # (A) 0.3 k/uL (0-1.0); Monocytes % (A) 5 %; Neutrophils % (A) 82 %; Platelet Count 126 k/uL (150-450); RBC 3.36 m/uL (4.30-5.90); RDW 15.1 % (11.5-15.5); WBC 6.1 k/uL (3.8-10.6)
[2023-09-21] MEDS: MULTIVITAMINS, THERA 1 EACH TAB PO SCH (12:43)
--- NOTE | 2023-09-21 14:05 | P.PN ---
Subjective Progress Note Date: 09/21/23 Hospital course: Patient is a 83-year-old male with a past medical history of HIV, marijuana use, questionable history of a stroke on Plavix and nicotine dependence. He presented to the hospital on 09/19/2023 after a fall resulting in left hip pain. Patient was standing on a ladder trying to replace a light bulb on ceiling fan when he reportedly missed a step and fell onto his left hip onto the hardwood floor. He underwent evaluation in the emergency department and was found to h ave a left intertrochanteric hip fracture. His laboratory analysis also revealed bicytopenia with hemoglobin of 12.2 and platelet count of 141 along with mild hypokalemia with potassium of 3.4. Patient was admitted under orthopedic surgery team and we were consulted for medical clearance and medical management throughout hospitalization. Patient underwent Physical exam: Vital signs reviewed and stable. General: Nontoxic, no distress and appears stated age. Derm: Skin warm and dry, normal coloration for ethnicity. Head: Atraumatic, normocephalic and symmetric. Eyes: EOMs intact, no lid lag, and anicteric sclera Mouth: no lip lesions, mucus membranes moist Cardiovascular: regular rate and rhythm with normal S1S2, no murmur, positive posterior tibial pulses bilaterally, and cap refill < 2 seconds. Lungs: Respirations even, regular, and unlabored on room air. Lungs CTA bilaterally, no rhonchi, no rales, no wheezing, and no accessory muscle usage. Abdominal: soft, nontender to palpation, no guarding, no appreciable organomegaly Ext: No gross muscle atrophy, no edema, no contractures. Movement and sensation intact. Neuro: Speech clear, face symmetrical and CN II-XII grossly intact with no noted focal neuro deficits Psych: Alert and oriented to person, place, time, and situation. Appropriate and pleasant affect. Assessment and Plan of Care: Displaced Left intertrochanteric hip fracture -Orthopedic surgery managing and took patient for intramedullary trochanteric na iling of left hip this morning. -Management per primary admitting orthopedic surgery team. -We will continue to follow labs closely. Hematuria, asymptomatic CT abdomen and pelvis revealed a left-sided intertrochanteric fracture no evidence of hematoma not identified and no evidence of ruptured urinary bladder. Incidental urachal remnant. -Incidental finding, no need for further intervention. Bicytopenia with anemia and thrombocytopenia. . -Stable with hemoglobin 10.9 and platelet count of 126. Hypokalemia. Resolved. -Potassium 3.8 HIV Continue antiretroviral therapy Continue outpatient follow-up Hyperlipidemia Continue atorvastatin 40 mg nightly. Questionable history of stroke without residual weakness Hold Plavix for now, recommend resuming once cleared by orthopedic surgery team. Data reviewed: Repeat morning labs reviewed. CBC showing bicytopenia with hemoglobin of 10.9 and platelet count of 126. BMP unremarkable. Magnesium normal findings at 2.0. Vital signs reviewed. Blood pressure 124/73, heart rate 71, respiratory rate 16, and SpO2 of 93% on room air. Thank you for allowing us to participate in the care of this pleasant patient. Do not hesitate to contact us with questions. Someone can be reached from the [facility] hospitalist group all hours of the day at [phone] or via [employer]. Patient was seen independently by Nurse Pracitioner. This document was prepared using [employer] dictation software. Please allow for errors in gate clerk, while rare they do occur. I reviewed the documentation as provided by the FRANCY above, who is the original author of this note. I agree with the documented assessment and plan, with the following changes: none Objective - Vital Signs Vital signs: Vital Signs Temp 97.8 F 09/21/23 08:00 Pulse 57 L 09/21/23 08:00 Resp 17 09/21/23 08:00 BP 106/59 09/21/23 08:00 Pulse Ox 94 L 09/21/23 08:00 FiO2 Intake & Output 09/20/23 09/21/23 09/21/23 18:59 06:59 18:59 Intake Total 420 101 Output Total 550 700 Balance -550 -280 101 Intake: IV 101 Oral 420 Output: Urine 550 700 Uretheral (Ojeda) 350 Post Void Residual 0 Other: Voiding Method Urinal Indwelling Catheter - Labs CBC & Chem 7: 09/21/23 10:54 09/21/23 06:35 Labs: Abnormal Lab Results - Last 24 Hours (Table) 09/20/23 09/20/23 09/20/23 Range/Units 09:10 10:37 14:40 RBC 4.14 L (4.30-5.90) m/uL MCV 100.9 H (80.0-100.0) fL Sodium 135 L (137-145) mmol/L Chloride 111 H (98-107) mmol/L Carbon Dioxide 17 L (22-30) mmol/L Glucose 112 H (74-99) mg/dL Urine Protein 1+ H (Negative) Urine Blood Large H (Negative) Urine RBC >182 H (0-5) /hpf Urine WBC 6 H (0-5) /hpf Urine Mucus Moderate H (None) /hpf Urine Opiates Screen Detected H (NotDetected)
[2023-09-21] MEDS: SENNOSIDES-DOCUSATE SODIUM 1 EACH TAB PO SCH (22:00)
[2023-09-21] MEDS: HYDROcodone/APAP 5-325MG 1 EACH TAB PO PRN (23:10)
[2023-09-22] MEDS: ENOXAPARIN 40 MG/0.4 ML SYRINGE SQ SCH (07:52)
[2023-09-22] MEDS ORDERED: SENNOSIDES-DOCUSATE SODIUM 1 EACH TAB PO SCH (09:00)
--- NOTE | 2023-09-22 12:45 | P.PN ---
Subjective Progress Note Date: 09/22/23 Principal diagnosis: s/p IM nail left IT fracture Patient doing very well, still remains confused. Patient has sitter at bedside. Pain is well-controlled. Surgical dressing is clean and dry. PT/OT evaluation on 09/23/2023. Denies headaches, lightheadedness, chest pain or shortness of breath Objective - Vital Signs Vital signs: Vital Signs Temp 98.3 F 09/22/23 07:47 Pulse 108 H 09/22/23 07:47 Resp 18 09/22/23 07:47 BP 130/71 09/22/23 07:47 Pulse Ox 77 L 09/22/23 07:47 FiO2 Intake & Output 09/21/23 09/22/23 09/22/23 18:59 06:59 18:59 Intake Total 601 Output Total 775 450 Balance -174 -450 Intake: IV 601 Output: Urine 750 450 Estimated Blood Loss 25 Other: Voiding Method Indwelling Catheter Indwelling Catheter Indwelling Catheter - Exam Left lower extremity: Incision is clean, dry, and intact. The postoperative dressing is in good condition. There is minimal soft tissue swelling and ecchymosis surrounding the medial and lateral aspects of the incision. Calf is soft, no tenderness with palpation. Plantar flexion, dorsiflexion, EHL, FHL are intact. Sensory exam to light touch throughout the extremity is intact, dorsal pedis pulses 2+. - Labs CBC & Chem 7: 09/21/23 10:54 09/21/23 06:35 Assessment and Plan Assessment: Post op day #1 s/p IM nail left IT fracture status post fall from standing dementia other medical comorbidities Plan: Pain control, recommend low dose medication to avoid worsening confusion Regular diet Weightbear as tolerated DVT prophylaxis, ok to resume plavix PT/OT evaluation medical recommendations appreciated Discharge planning: recommend subacute placement, will discuss case management Time with Patient: Less than 30
--- NOTE | 2023-09-22 14:14 | P.PN ---
Subjective Progress Note Date: 09/22/23 Hospital course: Patient is a 83-year-old male with a past medical history of HIV, marijuana use, questionable history of a stroke on Plavix and nicotine dependence. He presented to the hospital on 09/19/2023 after a fall resulting in left hip pain. Patient was standing on a ladder trying to replace a light bulb on ceiling fan when he reportedly missed a step and fell onto his left hip onto the hardwood floor. He underwent evaluation in the emergency department and was found to h ave a left intertrochanteric hip fracture. His laboratory analysis also revealed bicytopenia with hemoglobin of 12.2 and platelet count of 141 along with mild hypokalemia with potassium of 3.4. Patient was admitted under orthopedic surgery team and we were consulted for medical clearance and medical management throughout hospitalization. Patient underwent intramedullary trochanteric nailing of left hip on 09/21/2023. Physical exam: Patient seen and fully evaluated at the bedside this morning. He is postop day 1 status post intramedullary nailing of left hip. Patient alert to person and place only and remains pleasantly confused to time and situation. Patient denies having any complaints at this time. Sitter is at bedside maintaining safety. Ojeda catheter in place. Vital signs reviewed and stable. General: Nontoxic, no distress and appears stated age. Derm: Skin warm and dry, normal coloration for ethnicity. Head: Atraumatic, normocephalic and symmetric. Eyes: EOMs intact, no lid lag, and anicteric sclera Mouth: no lip lesions, mucus membranes moist Cardiovascular: regular rate and rhythm with normal S1S2, no murmur, positive posterior tibial pulses bilaterally, and cap refill < 2 seconds. Lungs: Respirations even, regular, and unlabored on room air. Lungs CTA bi laterally, no rhonchi, no rales, no wheezing, and no accessory muscle usage. Abdominal: soft, nontender to palpation, no guarding, no appreciable organomegaly Ext: No gross muscle atrophy, no edema, no contractures. Movement and sensation intact. Neuro: Speech clear, face symmetrical and CN II-XII grossly intact with no noted focal neuro deficits Psych: Alert and oriented to person and place only and pleasantly confused to time and situation. Assessment and Plan of Care: Status post intramedullary trochanteric nailing of left hip Displaced Left intertrochanteric hip fracture -Management per primary admitting orthopedic surgery team including DVT prophylaxis, pain management, wound/dressing care, weightbearing, and PT/OT.. -DVT prophylaxis currently with Lovenox 40 mg daily. -We will continue to follow labs closely. Hematuria, asymptomatic CT abdomen and pelvis revealed a left-sided intertrochanteric fracture no evidence of hematoma not identified and no evidence of ruptured urinary bladder. Incidental urachal remnant. -Incidental finding, no need for further intervention. Bicytopenia with anemia and thrombocytopenia. . -Stable with hemoglobin 10.9 and platelet count of 126. Hypokalemia. Resolved. -Potassium 3.8 HIV Continue antiretroviral therapy Continue outpatient follow-up Hyperlipidemia Continue atorvastatin 40 mg nightly. Questionable history of stroke without residual weakness Hold Plavix for now, recommend resuming once cleared by orthopedic surgery team. Data reviewed: Vital signs reviewed. Blood pressure 130/71, heart rate 108, respiratory rate 18, temp 98.3 F, and SpO2 of 95% on room air. Thank you for allowing us to participate in the care of this pleasant patient. Do not hesitate to contact us with questions. Someone can be reached from the [facility] hospitalist group all hours of the day at [phone] or via perfect serve. Patient was seen independently by Nurse Pracitioner. This document was prepared using [employer] dictation software. Please allow for errors in desizing machine back tender, while rare they do occur. I reviewed the documentation as provided by the FRANCY above, who is the original author of this note. I agree with the documented assessment and plan, with the following changes: none Objective - Vital Signs Vital signs: Vital Signs Temp 98.3 F 09/22/23 07:47 Pulse 108 H 09/22/23 07:47 Resp 18 09/22/23 07:47 BP 130/71 09/22/23 07:47 Pulse Ox 77 L 09/22/23 07:47 FiO2 Intake & Output 09/21/23 09/22/23 09/22/23 18:59 06:59 18:59 Intake Total 601 Output Total 775 450 Balance -174 -450 Intake: IV 601 Output: Urine 750 450 Estimated Blood Loss 25 Other: Voiding Method Indwelling Catheter Indwelling Catheter Indwelling Catheter - Labs CBC & Chem 7: 09/21/23 10:54 09/23/23 06:34 Labs: Abnormal Lab Results - Last 24 Hours (Table) 09/21/23 09/21/23 09/21/23 Range/Units 06:35 06:35 10:54 WBC 4.46 L (4.50-10.00) X 10*3/uL RBC 3.21 L 3.36 L (4.40-5.60) X 10*6/uL Hgb 10.4 L 10.9 L (13.0-17.0) g/dL Hct 31.7 L 34.1 L (39.6-50.0) % MCV 98.8 H 101.4 H (80.0-97.0) FL MCH 32.4 H (27.0-32.0) pg RDW 14.9 H (11.5-14.5) % Plt Count 107 L 126 L (140-440) X 10*3/uL Lymphocytes # 0.6 L (1.0-4.8) k/uL BUN 6.0 L (9.0-27.0) mg/dL BUN/Creatinine Ratio 7.50 L (12.00-20.00) Ratio Calcium 8.3 L (8.7-10.3) mg/dL
[2023-09-22] MEDS: HYDROcodone/APAP 7.5-325MG 1 EACH TAB PO PRN (21:02)
[2023-09-23 09:06] LABS: ALT 8 U/L (10-49); AST 21 U/L (14-35); Albumin 3.5 g/dL (3.8-4.9); Albumin/Globulin Ratio 1.84 Ratio (1.60-3.17); Alkaline Phosphatase 80 U/L (41-126); Blood Urea Nitrogen 7.6 mg/dL (9.0-27.0); Calcium 8.7 mg/dL (8.7-10.3); Carbon Dioxide 20.6 mmol/L (21.6-31.8); Chloride 104 mmol/L (96-109); Globulin 1.9 g/dL (1.6-3.3); Glucose 109 mg/dL (70-110); Magnesium 1.8 mg/dL (1.5-2.4); Potassium 3.6 mmol/L (3.5-5.5); Sodium 136 mmol/L (135-145); Total Protein 5.4 g/dL (6.2-8.2)
[2023-09-23 10:35] LABS: Basophils # (A) 0.04 X 10*3/uL (0.00-0.10); Basophils % (A) 0.6 %; Eosinophils # (A) 0.17 X 10*3/uL (0.04-0.35); Eosinophils % (A) 2.7 %; HCT 29.5 % (39.6-50.0); HGB 10.2 g/dL (13.0-17.0); Lymphocytes # (A) 1.26 X 10*3/uL (0.90-5.00); Lymphocytes % (A) 19.7 %; MCH 33.2 pg (27.0-32.0); MCHC 34.6 g/dL (32.0-37.0); MCV 96.1 FL (80.0-97.0); Monocytes # (A) 0.39 X 10*3/uL (0.20-1.00); Monocytes % (A) 6.1 %; NRBC Per 100 WBC 0 X 10*3/uL (0.00-0.01); Neutrophils # (A) 4.53 X 10*3/uL (1.80-7.70); Neutrophils % (A) 70.6 %; Platelet Count 151 X 10*3/uL (140-440); RBC 3.07 X 10*6/uL (4.40-5.60); WBC 6.41 X 10*3/uL (4.50-10.00)
--- NOTE | 2023-09-23 13:00 | P.PN ---
Subjective Progress Note Date: 09/23/23 Principal diagnosis: s/p IM nail left IT fracture Patient doing very well, still remains confused. Patient sister was at bedside.. Pain is well-controlled. Surgical dressing is clean and dry. PT/OT evaluation on 09/23/2023. Denies headaches, lightheadedness, chest pain or shor tness of breath Objective - Vital Signs Vital signs: Vital Signs Temp 98.6 F 09/23/23 07:10 Pulse 85 09/23/23 07:10 Resp 18 09/23/23 07:10 BP 131/73 09/23/23 07:10 Pulse Ox 95 09/23/23 07:10 FiO2 Intake & Output 09/22/23 09/23/23 09/23/23 18:59 06:59 18:59 Intake Total 960 Output Total 875 Balance 85 Intake: Oral 960 Output: Urine 875 Straight 425 Other: Voiding Method Indwelling Catheter Toilet Urinal # Voids 0 1 1 # Bowel Movements 1 - Exam Left lower extremity: Incision is clean, dry, and intact. The postoperative dressing is in good condition. There is minimal soft tissue swelling and ecchymosis surrounding the medial and lateral aspects of the incision. Calf is soft, no tenderness with palpation. Plantar flexion, dorsiflexion, EHL, FHL are intact. Sensory exam to light touch throughout the extremity is intact, dorsal pedis pulses 2+. 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
--- NOTE | 2023-09-23 13:19 | P.PN ---
Subjective Progress Note Date: 09/23/23 Hospital course: Patient is a 83-year-old male with a past medical history of HIV, marijuana use, questionable history of a stroke on Plavix and nicotine dependence. He presented to the hospital on 09/19/2023 after a fall resulting in left hip pain. Patient was standing on a ladder trying to replace a light bulb on ceiling fan when he reportedly missed a step and fell onto his left hip onto the hardwood floor. He underwent evaluation in the emergency department and was found to h ave a left intertrochanteric hip fracture. His laboratory analysis also revealed bicytopenia with hemoglobin of 12.2 and platelet count of 141 along with mild hypokalemia with potassium of 3.4. Patient was admitted under orthopedic surgery team and we were consulted for medical clearance and medical management throughout hospitalization. Patient underwent intramedullary trochanteric nailing of left hip on 09/21/2023. Physical exam: Patient seen and fully evaluated at the bedside this morning. He is postop day 2 status post intramedullary nailing of left hip. Patient alert to person and place only and situation this morning. Patient reports feeling very agitated that he is expected to stay in the bed. He denies having any pain or discomfort at this time. He has been urinating without any difficulties and tolerating oral intake without any episodes of nausea or vomiting.. Vital signs reviewed and stable. General: Nontoxic, no distress and appears stated age. Derm: Skin warm and dry, normal coloration for ethnicity. Head: Atraumatic, normocephalic and symmetric. Eyes: EOMs intact, no lid lag, and anicteric sclera Mouth: no lip lesions, mucus membranes moist Cardiovascular: regular rate and rhythm with normal S1S2, no murmur, positive posterior tibial pulses bilaterally, and cap refill < 2 seconds. Lungs: Respirations even, regular, and unlabored on room air. Lungs CTA bilaterally, no rhonchi, no rales, no wheezing, and no accessory muscle usage. Abdominal: soft, nontender to palpation, no guarding, no appreciable organomegaly Ext: No gross muscle atrophy, no edema, no contractures. Movement and sensation intact. Neuro: Speech clear, face symmetrical and CN II-XII grossly intact with no noted focal neuro deficits Psych: Alert and oriented to person and place only and pleasantly confused to time and situation. Assessment and Plan of Care: Status post intramedullary trochanteric nailing of left hip Displaced Left intertrochanteric hip fracture -Management per primary admitting orthopedic surgery team including DVT prophylaxis, pain management, wound/dressing care, weightbearing, and PT/OT.. -DVT prophylaxis currently with Lovenox 40 mg daily. -We will continue to follow labs closely. Hematuria, asymptomatic CT abdomen and pelvis revealed a left-sided intertrochanteric fracture no evidence of hematoma not identified and no evidence of ruptured urinary bladder. Incidental urachal remnant. -Incidental finding, no need for further intervention. Bicytopenia with anemia and thrombocytopenia. . -Stable with hemoglobin 10.2 and platelet count is now normal at 151 Hypokalemia. Resolved. -Potassium 3.6 HIV Continue antiretroviral therapy Continue outpatient follow-up Hyperlipidemia Continue atorvastatin 40 mg nightly. Questionable history of stroke without residual weakness Hold Plavix for now, recommend resuming once cleared by orthopedic surgery team. Data reviewed: Vital signs reviewed. Blood pressure 131/73, heart rate 85, respiratory rate 18, temp 98.6 F, and SpO2 of 95% on room air. Postoperative labs reviewed. Hemoglobin stable at 10.2 and patient has had resolution of previous noted thrombocytopenia with current platelet count of 151. BMP unremarkable. Magnesium normal findings at 1.8. Patient currently awaiting placement in [facility] facility for rehab, patient is currently medically optimized and cleared from medical standpoint for discharge once [facility] facility is available. Thank you for allowing us to participate in the care of this pleasant patient. Do not hesitate to contact us with questions. Someone can be reached from the [facility] hospitalist group all hours of the day at [phone] or via perfect serve. Patient was seen independently by Nurse Pracitioner. This document was prepared using [employer] dictation software. Please allow for errors in animal eviscerator, while rare they do occur I reviewed the documentation as provided by the FRANCY above, who is the original author of this note. I agree with the documented assessment and plan, with the following changes: none Objective - Vital Signs Vital signs: Vital Signs Temp 98.4 F 09/23/23 00:15 Pulse 87 09/23/23 00:15 Resp 18 09/22/23 20:00 BP 135/72 09/23/23 00:15 Pulse Ox 95 09/23/23 00:15 FiO2 Intake & Output 09/22/23 09/23/23 09/23/23 18:59 06:59 18:59 Intake Total 960 Output Total 875 Balance 85 Intake: Oral 960 Output: Urine 875 Straight 425 Other: Voiding Method Indwelling Catheter Toilet Urinal # Voids 0 1 - Labs CBC & Chem 7: 09/23/23 06:34 09/23/23 06:34
[2023-09-24 02:39] VITALS: TEMP 97.9
[2023-09-24 10:28] VITALS: BP 139/72; PULSE 68; RESP 18
--- NOTE | 2023-09-24 11:28 | P.PN ---
Subjective Progress Note Date: 09/24/23 Hospital course: Patient is a 83-year-old male with a past medical history of HIV, marijuana use, questionable history of a stroke on Plavix and nicotine dependence. He presented to the hospital on 09/19/2023 after a fall resulting in left hip pain. Patient was standing on a ladder trying to replace a light bulb on ceiling fan when he reportedly missed a step and fell onto his left hip onto the hardwood floor. He underwent evaluation in the emergency department and was found to have a left intertrochanteric hip fracture. His laboratory analysis also reveal ed bicytopenia with hemoglobin of 12.2 and platelet count of 141 along with mild hypokalemia with potassium of 3.4. Patient was admitted under orthopedic surgery team and we were consulted for medical clearance and medical management throughout hospitalization. Patient underwent intramedullary trochanteric nailing of left hip on 09/21/2023. Physical exam: Patient seen and fully evaluated at the bedside this morning. He is postop day 3 status post intramedullary nailing of left hip. Patient is alert to person, place, time, and situation. He reports mild postoperative pain and he is ambulating with assistance with walker. Plan is for discharge to SNF later today. Pt free from further complaints or needs at this time. Vital signs reviewed and stable. General: Nontoxic, no distress and appears stated age. Derm: Skin warm and dry, normal coloration for ethnicity. Head: Atraumatic, normocephalic and symmetric. Eyes: EOMs intact, no lid lag, and anicteric sclera Mouth: no lip lesions, mucus membranes moist Cardiovascular: regular rate and rhythm with normal S1S2, no murmur, positive posterior tibial pulses bilaterally, and cap refill < 2 seconds. Lungs: Respirations even, regular, and unlabored on room air. Lungs CTA bilaterally, no rhonchi, no rales, no wheezing, and no accessory muscle usage. Abdominal: soft, nontender to palpation, no guarding, no appreciable organomegaly Ext: No gross muscle atrophy, no edema, no contractures. Movement and sensation intact. Neuro: Speech clear, face symmetrical and CN II-XII grossly intact with no noted focal neuro deficits Psych: Alert and oriented to person and place only and pleasantly confused to time and situation. Assessment and Plan of Care: Status post intramedullary trochanteric nailing of left hip Displaced Left intertrochanteric hip fracture -Management per primary admitting orthopedic surgery team including DVT prophylaxis, pain management, wound/dressing care, weightbearing, and PT/OT.. -DVT prophylaxis currently with Lovenox 40 mg daily. -We will continue to follow labs closely. Hematuria, asymptomatic CT abdomen and pelvis revealed a left-sided intertrochanteric fracture no evidence of hematoma not identified and no evidence of ruptured urinary bladder. Incidental urachal remnant. -Incidental finding, no need for further intervention. Bicytopenia with anemia and thrombocytopenia. . -Stable with hemoglobin 10.2 and platelet count is now normal at 151 Hypokalemia. Resolved. -Potassium 3.6 HIV Continue antiretroviral therapy Continue outpatient follow-up Hyperlipidemia Continue atorvastatin 40 mg nightly. Questionable history of stroke without residual weakness Hold Plavix for now, recommend resuming once cleared by orthopedic surgery team. Data reviewed: Vital signs reviewed. Blood pressure 139/72, heart rate 68, respiratory rate 18, temp 97.9 F and SpO2 of 97% on room air. Patient currently awaiting placement in senior care facility for rehab, patient is currently medically optimized and cleared from medical standpoint for discharge once senior care facility is available. Thank you for allowing us to participate in the care of this pleasant patient. Do not hesitate to contact us with questions. Someone can be reached from the [facility] hospitalist group all hours of the day at [phone] or via [employer] serve. Patient was seen independently by Nurse Pracitioner. This document was prepared using [employer] dictation software. Please allow for errors in medical sales specialist, while rare they do occur. Ildefonso Aldridge NP rendered care for this patient independently, reviewed the findings and plan as documented in the note above. I did not physically speak with or examine the patient on this date. Objective - Vital Signs Vital signs: Vital Signs Temp 97.9 F 09/24/23 02:00 Pulse 76 09/24/23 02:00 Resp 20 09/24/23 02:00 BP 137/83 09/24/23 02:00 Pulse Ox 97 09/24/23 02:00 FiO2 Intake & Output 09/23/23 09/24/23 09/24/23 18:59 06:59 18:59 Other: Voiding Method Toilet Urinal # Voids 1 1 # Bowel Movements 1 - Labs CBC & Chem 7: 09/23/23 06:34 09/23/23 06:34 Labs: Abnormal Lab Results - Last 24 Hours (Table) 09/23/23 09/23/23 Range/Units 06:34 06:34 RBC 3.07 L (4.40-5.60) X 10*6/uL Hgb 10.2 L (13.0-17.0) g/dL Hct 29.5 L (39.6-50.0) % MCH 33.2 H (27.0-32.0) pg RDW 15.0 H (11.5-14.5) % Carbon Dioxide 20.6 L (21.6-31.8) mmol/L BUN 7.6 L (9.0-27.0) mg/dL BUN/Creatinine Ratio 9.50 L (12.00-20.00) Ratio ALT 8 L (10-49) U/L Total Protein 5.4 L (6.2-8.2) g/dL Albumin 3.5 L (3.8-4.9) g/dL
--- NOTE | 2023-09-24 12:19 | P.PN ---
Subjective Progress Note Date: 09/24/23 Principal diagnosis: s/p IM nail left IT fracture Patient is evaluated today at bedside, he is visualized utilizing the walker and ambulating from the bathroom. Pain is well-controlled. Surgical dressing is clean and dry. Denies headaches, lightheadedness, chest pain or shortness of breath Objective - Vital Signs Vital signs: Vital Signs Temp 97.9 F 09/24/23 07:23 Pulse 68 09/24/23 07:23 Resp 18 09/24/23 07:23 BP 139/72 09/24/23 07:23 Pulse Ox 97 09/24/23 07:23 FiO2 Intake & Output 09/23/23 09/24/23 09/24/23 18:59 06:59 18:59 Other: Voiding Method Toilet Toilet Urinal Urinal # Voids 1 1 1 # Bowel Movements 1 - Exam Left lower extremity: Surgical dressing is in good position and condition, no active drainage visualized. There is minimal soft tissue swelling and ecchymosis surrounding the medial and lateral aspects of the incision. Calf is soft, no tenderness with palpation. Plantar flexion, dorsiflexion, EHL, FHL are intact. Sensory exam to light touch throughout the extremity is intact, dorsal pedis pulses 2+. 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
--- NOTE | 2023-09-24 12:23 | P.DS ---
Providers Date of admission: 09/19/23 22:14 Expected date of discharge: 09/24/23 Attending physician: Segun Schuster Consults: 09/19/23 22:14 Consult Physician Urgent Consulting Provider: Roly Richard Consult Reason/Comments: Medical clearance for surgery in the a.m. Do you want consulting provider notified?: Yes Primary care physician: [facility] Hospital Course: date of admission: 09/19/2023 Date of discharge: 09/24/2023 Admission diagnosis: displaced left intertrochanteric femur fracture Discharge diagnosis: status post intramedullary nail left intertrochanteric femur fracture Attending physician: Dr. Schuster Surgical procedures: intramedullary nail left intertrochanteric femur fracture Brief history: Patient is a 83-year-old male who was evaluated at [facility] on 09/19/2023 after sustaining a fall at home. It was determined he had a displaced left intertrochanteric femur fracture. Patient was admitted under our orthopedic care with plan for surgical intervention. Internal medicine was placed on consult for medical management. Patient underwent an intramedullary nail for the left intertrochanteric femur fracture on 09/21/2023. Hospital course: Details of patient's surgery can be found in operative report. Patient tolerated the procedure well and was subsequently transported to orthopedic floor. Patient's orthopeidc and medical care was provided daily. Patient had daily laboratory tests performed for evaluation of overall blood counts. Patient had daily physical therapy to include strengthening range of motion as well as education with walker ambulation. Patient was treated with Lovenox for their postoperative DVT prophylaxis during their inpatient stay. Patient was noted to have a relatively uneventful postoperative course. Patient reported satisfactory pain control with oral pain medications by postoperative day 1. Patient showed satisfactory progress with physical therapy. Patient mov ed steadily through the program and had no difficulty meeting the goals by postoperative day 3. Given patient's otherwise satisfactory course and having met physical therapy goals, plan is to discharge patient subacute rehab on postoperative day 3. Discharge condition/disposition: Patient will be discharged subacute rehab in stable condition. Discharge medications: Instructions are given on resumption of patient's normal daily medications per primary care recommendation, in addition patient will be prescribed [place] 5 mg / 325 mg, senna S. Discharge instructions: 1. Wound care and infection precautions, keep incision dry and covered while showering, no lotions, creams, moisturizers. No soaking, tubs, pools, hottubs. Do not scrub over the incision. 2. Weight-bear as tolerated with walker / cane until follow-up. 3. Ice and elevate when necessary. Do not exceed 20 minutes per hour with ice pack. 4. Utilize compression sleeve until seen at first follow up appointment. 5. Visiting nursing care. 6. Home physical therapy 7. Pain meds and anticoagulants per prescription. 8. Pain medication has potential to cause constipation. Increase oral fluid and fiber intake. Contact primary care provider if you have not had a bowel movement within 48 hours after discharge 9. No anti-inflammatory medication until discussed at first post operative visit, this including Motrin, Aleve, Mobic, Diclofenac 10. Follow up in office at 2 weeks postop with Jerry Mar PA-C/Pierre Link 11. Follow up with your primary care doctor 7-10 days after discharge. 12. Contact [facility] with any questions, . Procedures: Intramedullary nail left intertrochanteric femur fracture Patient Condition at Discharge: Stable Plan - Discharge Summary Discharge Rx Participant: No New Discharge Prescriptions: New HYDROcodone/APAP 5-325MG [[place] 5-325] 1 tab PO Q6HR PRN #28 tab PRN Reason: Pain Sennosides/Docusate Sodium [Senna-S 8.6-50 mg Tablet] 2 each PO DAILY PRN #30 tablet PRN Reason: Constipation Continue Emtricitabine/Tenofovir (Tdf) [[place] 200 mg-300 mg Tablet] 1 tab PO DAILY Dolutegravir Sodium [Tivicay] 50 mg PO DAILY Clopidogrel [Plavix] 75 mg PO DAILY Atorvastatin Calcium 40 mg PO HS Darunavir/Cob/Emtri/Tenof Alaf [Symtuza [id number] mg Tab] 1 tab PO DAILY Discharge Medication List Atorvastatin Calcium 40 mg PO HS 09/20/23 [History] Clopidogrel [Plavix] 75 mg PO DAILY 09/20/23 [History] Darunavir/Cob/Emtri/Tenof Alaf [Symtuza [id number] mg Tab] 1 tab PO DAILY 09/20/23 [History] Dolutegravir Sodium [Tivicay] 50 mg PO DAILY 09/20/23 [History] Emtricitabine/Tenofovir (Tdf) [[place] 200 mg-300 mg Tablet] 1 tab PO DAILY 09/20/23 [History] HYDROcodone/APAP 5-325MG [[place] 5-325] 1 tab PO Q6HR PRN #28 tab 09/24/23 [Rx] Sennosides/Docusate Sodium [Senna-S 8.6-50 mg Tablet] 2 each PO DAILY PRN #30 tablet 09/24/23 [Rx] Follow up Appointment(s)/Referral(s): [facility] [Primary Care Provider] - 1-2 days Manolo Mar PAC [PHYSICIAN SHOP SUPERINTENDENT] - 3 Weeks Activity/Diet/Wound Care/Special Instructions: Orthopedic Discharge Instructions: 1. Wound care and infection precautions, keep incision dry and covered while showering, no lotions, creams, moisturizers. No soaking, pools, hot tubs. Do not scrub over incision. 2. Weight-bear as tolerated with walker / cane until follow-up. 3. Ice and elevate when necessary. Do not exceed 20 minutes per hour with ice pack. 4. Utilize compression sleeve until seen at first follow up appointment. 5. Pain meds and anticoagulants per prescription. 6. Pain medication has potential to cause constipation. Increase oral fluid and fiber intake. Contact primary care provider if you have not had a bowel movement within 48 hours after discharge. 7. No anti-inflammatory medication until discussed at first post operative visit, this including Motrin, Aleve, Mobic, Diclofenac. 8. Follow up in office at 2 weeks postop with Jerry Mar PA-C/Pierre Martin PA-C 9. Follow up with your primary care doctor 7-10 days after discharge. 10. Contact [facility] with any questions, . Wound care instructions: Okay to remove zhao as of 10/05/2023 Discharge Disposition: TRANSFER TO SNF/ECF
== END 2023-09-24 14:16 | DRG 482 ==
LOC: EC 19:50 → 4SSUR 22:14
PROVIDERS: ADMIT Orthopaedic Surgery; ATTEND Orthopaedic Surgery
PROC: 0QS706Z Reposition Left Upper Femur with Intramedullary Internal Fixation Device, Open Approach (ICD-10-PCS; principal; 2023-09-20)
DX: S72.142A Displaced intertrochanteric fracture of left femur, initial encounter for closed fracture (principal); E78.5 Hyperlipidemia, unspecified; E87.6 Hypokalemia; F03.90 Unspecified dementia, unspecified severity, without behavioral disturbance, psychotic disturbance, mood disturbance, and anxiety; F17.200 Nicotine dependence, unspecified, uncomplicated; D64.9 Anemia, unspecified; D69.6 Thrombocytopenia, unspecified; Z21 Asymptomatic human immunodeficiency virus [HIV] infection status; Z86.73 Personal history of transient ischemic attack (TIA), and cerebral infarction without residual deficits; W10.9XXA Fall (on) (from) unspecified stairs and steps, initial encounter; Y92.009 Unspecified place in unspecified non-institutional (private) residence as the place of occurrence of the external cause; Z79.02 Long term (current) use of antithrombotics/antiplatelets
CPT/HCPCS: 36415; 71045; 72170; 72193; 73502; 80048; 80053; 80306; 80320; 81001; 83735; 84484; 85025; 85027; 85610; 85730; 86850; 86900; 86901; 90471; 90715; 96374; 99291

== ENCOUNTER → 2024-05-06 | Outpatient (CLI) | payer OTHER ==
[2024-05-06 08:17] LABS: African American GFR (CKD) >90 (>60 ml/min/1.73 sqM); Blood Urea Nitrogen 10 mg/dL (9-20); Non-African American GFR(CKD) 81 (>60 ml/min/1.73 sqM)
--- NOTE | 2024-05-06 18:08 | CT ---
EXAMINATION TYPE: CT ChestAbdPelvis w con DATE OF EXAM: 05/06/2024 9:30 AM COMPARISON: None. CLINICAL INDICATION: Male, 84 years old with history of R63.4 ABNORMAL WEIGHT LOSS; PHH, ABDNORMAL WE IGHT LOSS Technique: CT ChestAbdPelvis w con; Multiple axial images were obtained. Two-dimensional coronal and sagittal reconstructions were obtained. Contrast used:100 mL of Isovue 370 with IV Contrast, (None if empty) Oral contrast used: with Oral Contrast CT DLP: 994 mGycm, Automated exposure control for dose reduction was used. Findings: CHEST: LUNGS/ PLEURA: Mild centrilobular emphysema changes. No focal consolidation, pneumothorax or pleural effusion. AIRWAY: Patent and unremarkable. HEART: Size within normal limits.Atherosclerosis of the arterial vasculature. MEDIASTINUM: No gross evidence of adenopathy. VASCULATURE: No aortic aneurysm. MUSCULOSKELETAL: No acute osseous abnormalities. SOFT TISSUES/LYMPH NODES: Unremarkable. LOWER NECK: No significant findings. ABDOMEN: ABDOMEN LIVER: Simple appearing left hepatic lobe cyst. GALLBLADDER AND BILE DUCTS: Layering increased densities within the lumen consistent with gallstones are present. PANCREAS: Unremarkable. SPLEEN: Unremarkable. ADRENAL GLANDS: Unremarkable. KIDNEYS AND URETERS: No evidence of hydronephrosis or renal calculus. The ureters are unremarkable. PELVIS BLADDER: Unremarkable REPRODUCTIVE: Prostate is enlarged in size measuring 4.7 cm in transverse dimension. ABDOMEN & PELVIS STOMACH AND BOWEL: No evidence of bowel obstruction. Scattered colonic diverticula. PERITONEUM/RETROPERITONEUM: No evidence of pneumoperitoneum or free fluid. VASCULATURE: No evidence of aortic aneurysm. MUSCULOSKELETAL: No acute osseous abnormalities. Moderate disc degeneration changes are present throu ghout the thoracolumbar spine., left hip fixation hardware appears intact. LYMPH NODES: No gross evidence for lymphadenopathy. SOFT TISSUE/ABDOMINAL WALL: Unremarkable IMPRESSION: 1. No evidence for acute thoracic or abdominal process. No lymphadenopathy or mass visualized. 2. Prostatomegaly, correlate with serum PSA. 3. Cholelithiasis 4. Colonic diverticulosis. 5. Left hip fixation hardware intact. [facility], , 05/06/2024 6:06 PM
== END | disposition home or self-care (01) ==
LOC: RADCTMAIN 07:29
PROVIDERS: ATTEND Family Medicine
DX: B20 Human immunodeficiency virus [HIV] disease (principal); R63.4 Abnormal weight loss; N40.0 Benign prostatic hyperplasia without lower urinary tract symptoms; K80.20 Calculus of gallbladder without cholecystitis without obstruction; K57.30 Diverticulosis of large intestine without perforation or abscess without bleeding; M24.652 Ankylosis, left hip; J43.2 Centrilobular emphysema
CPT/HCPCS: 82565; 84520; 71260; 74177; 36415; Q9967

== ENCOUNTER 2024-09-05 11:59 | Emergency (ER) | payer OTHER ==
[2024-09-05 12:25] VITALS: RESP 18; TEMP 99.2
--- NOTE | 2024-09-05 12:48 | ED ---
General Adult HPI - General Chief complaint: Altered Mental Status Stated complaint: AMS Time Seen by Provider: 09/05/24 12:20 Source: patient, EMS, RN notes reviewed, old records reviewed Mode of arrival: EMS Limitations: no limitations - History of Present Illness Initial comments: This is an 84-year-old male who presents to the emergency department because he was altered and the store called EMS. According to the family he has been getting increasingly more altered and I think he is getting dementia however he has never been diagnosed with it. Family states that he does have HIV and has had it for 30 years. Also states that he has had heart attack in the past. Patient himself has no complaints denies any fall denies any pain denies any pr oblems whatsoever. Family states they do not see him every day but he does seem to be slowly declining mentally. Patient denies any fever or chills. Patient denies any back pain. Patient denies chest pain difficulty breathing or shortness of breath. Patient denies any headache. - Related Data Home Medications Medication Instructions Recorded Confirmed Atorvastatin Calcium 40 mg PO HS 09/20/23 09/20/23 Clopidogrel [Plavix] 75 mg PO DAILY 09/20/23 09/20/23 Darunavir/Cob/Emtri/Tenof Alaf 1 tab PO DAILY 09/20/23 09/20/23 [Symtuza 028-479-639-10 mg Tab] Dolutegravir Sodium [Tivicay] 50 mg PO DAILY 09/20/23 09/20/23 Emtricitabine/Tenofovir (Tdf) 1 tab PO DAILY 09/20/23 09/20/23 [Truvada 200 mg-300 mg Tablet] Previous Rx's Medication Instructions Recorded HYDROcodone/APAP 5-325MG [[place] 1 tab PO Q6HR PRN #28 tab 09/24/23 5-325] Sennosides/Docusate Sodium 2 each PO DAILY PRN #30 tablet 09/24/23 [Senna-S 8.6-50 mg Tablet] Allergies Allergy/AdvReac Type Severity Reaction Status Date / Time No Known Allergies Allergy Verified 09/20/23 13:42 Review of Systems ROS Statement: Those systems with pertinent positive or pertinent negative responses have been documented in the HPI. ROS Other: All systems not noted in ROS Statement are negative. Past Medical History Additional Past Medical History / Comment(s): HIV+ History of Any Multi-Drug Resistant Organisms: None Reported Past Anesthesia/Blood Transfusion Reactions: No Reported Reaction Past Psychological History: No Psychological Hx Reported Smoking Status: Current every day smoker Past Alcohol Use History: Rare Past Drug Use History: Marijuana General Exam - General Exam Comments Initial Comments: GENERAL: Patient is well-developed and well-nourished. Patient is nontoxic and well- hydrated and is in no acute distress. ENT: Neck is soft and supple. No significant lymphadenopathy is noted. Oropharynx is clear. Moist mucous membranes. Neck has full range of motion without eliciting any pain. EYES: The sclera were anicteric and conjunctiva were pink and moist. Extraocular movements were intact and pupils were equal round and reactive to light. Eyelids were unremarkable. PULMONARY: Unlabored respirations. Good breath sounds bilaterally. No audible rales rhonchi or wheezing was noted. CARDIOVASCULAR: There is a regular rate and rhythm without any murmurs gallops or rubs. ABDOMEN: Soft and nontender with normal bowel sounds. SKIN: Skin is clear with no lesions or rashes and otherwise unremarkable. NEUROLOGIC: Patient is alert and oriented x3. Cranial nerves II through XII are grossly intact. Motor and sensory are also intact. Normal speech, volume and content. Symmetrical smile. MUSCULOSKELETAL: Normal extremities with adequate strength and full range of motion. No lower extremity swelling or edema. No calf tenderness. LYMPHATICS: No significant lymphadenopathy is noted PSYCHIATRIC: Normal psychiatric evaluation. Limitations: no limitations Course Vital Signs 09/05/24 09/05/24 09/05/24 12:16 14:04 15:09 Temperature 99.2 F Pulse Rate 89 79 61 Respiratory 18 18 18 Rate Blood Pressure 134/97 113/83 135/67 O2 Sat by Pulse 97 97 98 Oximetry Medical Decision Making - Medical Decision Making EKG is interpreted by myself. EKG shows a sinus rhythm at 78 bpm MT interval 171 QRS is 89 QT interval 355 QTc is 388. Was pt. sent in by a medical professional or institution (JOSUE Johnson, CYBER DEFENSE ANALYST, urgent care, hospital, or [facility]...) When possible be specific @ -No Did you speak to anyone other than the patient for history (EMS, parent, family, police, friend...)? What history was obtained from this source @ -No Did you review nursing and triage notes (agree or disagree)? Why? @ -I reviewed and agree with nursing and triage notes Were old charts reviewed (outside hosp., previous admission, EMS record, old EKG, old radiological studies, urgent care reports/EKG's, [facility] records)? Report findings @ -No old charts were reviewed Differential Diagnosis? @ -Differential Altered Mental Status: Hypoglycemia, DKA, hypercapnia, ETOH, overdose, CO poisoning, trauma, myxedema coma, HTN encephalopathy, infection, encephalitis, psychosis, intercranial hemorrhage, hepatic encephalopathy, meningitis, CVA, this is not meant to be an all-inclusive list EKG interpreted by me (3pts min.). @ -As above X-rays interpreted by me (1pt min.). @ -Chest x-ray shows no acute normality CT interpreted by me (1pt min.). @ -CT of the brain shows no acute abnormality U/S interpreted by me (1pt. min.). @ -None done What testing was considered but not performed or refused? (CT, X-rays, U/S, labs)? Why? @ -None What meds were considered but not given or refused? Why? @ -None Did you discuss the management of the patient with other professionals (professionals i.e. , PA, CYBER DEFENSE ANALYST, lab, RT, psych nurse, protective services social worker, semiconductor manufacturing technician, teacher, chief nursing officer, case maker)? Give summary @ - Was smoking cessation discussed for >3mins.? @ -No Was critical care preformed (if so, how long)? @ -No Were there social determinants of health that impacted care today? How? (Homelessness, low income, unemployed, alcoholism, drug addiction, transportation, low edu. Level, literacy, decrease access to med. care, group home, rehab)? @ -No Was there de-escalation of care discussed even if they declined (Discuss DNR or withdrawal of care, Hospice)? DNR status @ -No What co-morbidities impacted this encounter? (DM, HTN, Smoking, COPD, CAD, Cancer, CVA, ARF, Chemo, Hep., AIDS, mental health diagnosis, sleep apnea, morbid obesity)? @ -None Was patient admitted / discharged? Hospital course, mention meds given and route, prescriptions, significant lab abnormalities, going to OR and other pertinent info. @ -Family indicates the patient lives on his own he seems at his baseline so patient was able to eat ambulate and stated he had no problems and felt comfortable going home so patient will be discharged home. Patient is alert he is oriented and is willing to go home on his own family states he will check in on him Undiagnosed new problem with uncertain prognosis? @ -No Drug Therapy requiring intensive monitoring for toxicity (Heparin, Nitro, Insulin, Cardizem)? @ -No Were any procedures done? @ -No Diagnosis/symptom? @ -Transient altered mental status Acute, or Chronic, or Acute on Chronic? @ -Acute Uncomplicated (without systemic symptoms) or Complicated (systemic symptoms)? @ -Complicate Side effects of treatment? @ -No Exacerbation, Progression, or Severe Exacerbation? @ -No Poses a threat to life or bodily function? How? (Chest pain, [place], GA, pneumonia, PE, COPD, DKA, ARF, appy, cholecystitis, CVA, Diverticulitis, Homicidal, Suicidal, threat to staff... and all critical care pts) @ -No - Lab Data Result diagrams: 09/05/24 13:26 09/05/24 13:26 Lab Results 09/05/24 09/05/24 09/05/24 Range/Units 13:26 13:26 13:26 WBC 3.2 L (3.8-10.6) k/uL RBC 4.40 (4.30-5.90) m/uL Hgb 12.7 L (13.0-17.5) gm/dL Hct 38.6 L (39.0-53.0) % MCV 87.7 (80.0-100.0) fL MCH 29.0 (25.0-35.0) pg MCHC 33.0 (31.0-37.0) g/dL RDW 16.4 H (11.5-15.5) % Plt Count 69 L (150-450) k/uL MPV 8.1 Neutrophils % 73 % Lymphocytes % 17 % Monocytes % 7 % Eosinophils % 1 % Basophils % 0 % Neutrophils # 2.3 (1.3-7.7) k/uL Lymphocytes # 0.6 L (1.0-4.8) k/uL Monocytes # 0.2 (0-1.0) k/uL Eosinophils # 0.0 (0-0.7) k/uL Basophils # 0.0 (0-0.2) k/uL Manual Slide Review Performed Anisocytosis Slight PT 11.1 (10.0-12.5) sec INR 1.0 (<1.2) APTT 24.5 (22.0-30.0) sec Sodium 133 L (137-145) mmol/L Potassium 4.5 (3.5-5.1) mmol/L Chloride 101 (98-107) mmol/L Carbon Dioxide 23 (22-30) mmol/L Anion Gap 9 mmol/L BUN 17 (9-20) mg/dL Creatinine 1.10 (0.66-1.25) mg/dL Est GFR (CKD-EPI)AfAm 72 (>60 ml/min/1.73 sqM) Est GFR (CKD-EPI)NonAf 62 (>60 ml/min/1.73 sqM) Glucose 102 H (74-99) mg/dL POC Glucose (mg/dL) (70-110) mg/dL POC Glu Airbrush Artist ID Calcium 9.0 (8.4-10.2) mg/dL Total Bilirubin 0.8 (0.2-1.3) mg/dL AST 22 (17-59) U/L ALT 13 (4-49) U/L Alkaline Phosphatase 72 (38-126) U/L Ammonia (<30) umol/L Troponin I (0.000-0.034) ng/mL Total Protein 7.4 (6.3-8.2) g/dL Albumin 4.2 (3.5-5.0) g/dL Urine Color Urine Appearance (Clear) Urine pH (5.0-8.0) Ur Specific [place] (1.001-1.035) Urine Protein (Negative) Urine Glucose (UA) (Negative) Urine Ketones (Negative) Urine Blood (Negative) Urine Nitrite (Negative) Urine Bilirubin (Negative) Urine Urobilinogen (<2.0) mg/dL Ur Leukocyte Esterase (Negative) Urine Opiates Screen (NotDetected) Ur Oxycodone Screen (NotDetected) Urine Methadone Screen (NotDetected) Ur Barbiturates Screen (NotDetected) U Tricyclic Antidepress (NotDetected) Ur Phencyclidine Scrn (NotDetected) Ur Amphetamines Screen (NotDetected) U Methamphetamines Scrn (NotDetected) U Benzodiazepines Scrn (NotDetected) Urine Cocaine Screen (NotDetected) U Marijuana (THC) Screen (NotDetected) 09/05/24 09/05/24 09/05/24 Range/Units 13:26 14:03 15:53 WBC (3.8-10.6) k/uL RBC (4.30-5.90) m/uL Hgb (13.0-17.5) gm/dL Hct (39.0-53.0) % MCV (80.0-100.0) fL MCH (25.0-35.0) pg MCHC (31.0-37.0) g/dL RDW (11.5-15.5) % Plt Count (150-450) k/uL MPV Neutrophils % % Lymphocytes % % Monocytes % % Eosinophils % % Basophils % % Neutrophils # (1.3-7.7) k/uL Lymphocytes # (1.0-4.8) k/uL Monocytes # (0-1.0) k/uL Eosinophils # (0-0.7) k/uL Basophils # (0-0.2) k/uL Manual Slide Review Anisocytosis PT (10.0-12.5) sec INR (<1.2) APTT (22.0-30.0) sec Sodium (137-145) mmol/L Potassium (3.5-5.1) mmol/L Chloride (98-107) mmol/L Carbon Dioxide (22-30) mmol/L Anion Gap mmol/L BUN (9-20) mg/dL Creatinine (0.66-1.25) mg/dL Est GFR (CKD-EPI)AfAm (>60 ml/min/1.73 sqM) Est GFR (CKD-EPI)NonAf (>60 ml/min/1.73 sqM) Glucose (74-99) mg/dL POC Glucose (mg/dL) 109 (70-110) mg/dL POC Glu Airbrush Artist ID WILLIAMS MAYKEL Calcium (8.4-10.2) mg/dL Total Bilirubin (0.2-1.3) mg/dL AST (17-59) U/L ALT (4-49) U/L Alkaline Phosphatase (38-126) U/L Ammonia (<30) umol/L Troponin I <0.012 (0.000-0.034) ng/mL Total Protein (6.3-8.2) g/dL Albumin (3.5-5.0) g/dL Urine Color Yellow Urine Appearance Clear (Clear) Urine pH 5.5 (5.0-8.0) Ur Specific [place] 1.024 (1.001-1.035) Urine Protein Trace H (Negative) Urine Glucose (UA) Negative (Negative) Urine Ketones Negative (Negative) Urine Blood Negative (Negative) Urine Nitrite Negative (Negative) Urine Bilirubin Negative (Negative) Urine Urobilinogen <2.0 (<2.0) mg/dL Ur Leukocyte Esterase Negative (Negative) Urine Opiates Screen Not Detected (NotDetected) Ur Oxycodone Screen Not Detected (NotDetected) Urine Methadone Screen Not Detected (NotDetected) Ur Barbiturates Screen Not Detected (NotDetected) U Tricyclic Antidepress Not Detected (NotDetected) Ur Phencyclidine Scrn Not Detected (NotDetected) Ur Amphetamines Screen Not Detected (NotDetected) U Methamphetamines Scrn Not Detected (NotDetected) U Benzodiazepines Scrn Not Detected (NotDetected) Urine Cocaine Screen Not Detected (NotDetected) U Marijuana (THC) Screen Not Detected (NotDetected) 09/05/24 Range/Units 16:53 WBC (3.8-10.6) k/uL RBC (4.30-5.90) m/uL Hgb (13.0-17.5) gm/dL Hct (39.0-53.0) % MCV (80.0-100.0) fL MCH (25.0-35.0) pg MCHC (31.0-37.0) g/dL RDW (11.5-15.5) % Plt Count (150-450) k/uL MPV Neutrophils % % Lymphocytes % % Monocytes % % Eosinophils % % Basophils % % Neutrophils # (1.3-7.7) k/uL Lymphocytes # (1.0-4.8) k/uL Monocytes # (0-1.0) k/uL Eosinophils # (0-0.7) k/uL Basophils # (0-0.2) k/uL Manual Slide Review Anisocytosis PT (10.0-12.5) sec INR (<1.2) APTT (22.0-30.0) sec Sodium (137-145) mmol/L Potassium (3.5-5.1) mmol/L Chloride (98-107) mmol/L Carbon Dioxide (22-30) mmol/L Anion Gap mmol/L BUN (9-20) mg/dL Creatinine (0.66-1.25) mg/dL Est GFR (CKD-EPI)AfAm (>60 ml/min/1.73 sqM) Est GFR (CKD-EPI)NonAf (>60 ml/min/1.73 sqM) Glucose (74-99) mg/dL POC Glucose (mg/dL) (70-110) mg/dL POC Glu Airbrush Artist ID Calcium (8.4-10.2) mg/dL Total Bilirubin (0.2-1.3) mg/dL AST (17-59) U/L ALT (4-49) U/L Alkaline Phosphatase (38-126) U/L Ammonia <9 (<30) umol/L Troponin I (0.000-0.034) ng/mL Total Protein (6.3-8.2) g/dL Albumin (3.5-5.0) g/dL Urine Color Urine Appearance (Clear) Urine pH (5.0-8.0) Ur Specific [place] (1.001-1.035) Urine Protein (Negative) Urine Glucose (UA) (Negative) Urine Ketones (Negative) Urine Blood (Negative) Urine Nitrite (Negative) Urine Bilirubin (Negative) Urine Urobilinogen (<2.0) mg/dL Ur Leukocyte Esterase (Negative) Urine Opiates Screen (NotDetected) Ur Oxycodone Screen (NotDetected) Urine Methadone Screen (NotDetected) Ur Barbiturates Screen (NotDetected) U Tricyclic Antidepress (NotDetected) Ur Phencyclidine Scrn (NotDetected) Ur Amphetamines Screen (NotDetected) U Methamphetamines Scrn (NotDetected) U Benzodiazepines Scrn (NotDetected) Urine Cocaine Screen (NotDetected) U Marijuana (THC) Screen (NotDetected) Disposition Clinical Impression: Altered mental status Disposition: HOME SELF-CARE Condition: Good Instructions (If sedation given, give patient instructions): Altered Mental Status (ED) Is patient prescribed a controlled substance at d/c from ED?: No Referrals: Gildardo Kamara DO [Primary Care Provider] - 1-2 days Time of Disposition: 18:47
[2024-09-05] MEDS: SODIUM CHLORIDE 0.9% 500 ML 500 ML IV ONE (13:23)
[2024-09-05 13:38] LABS: Anisocytosis Slight; Basophils % (A) 0 %; Eosinophils % (A) 1 %; HCT 38.6 % (39.0-53.0); HGB 12.7 gm/dL (13.0-17.5); Lymphocytes # (A) 0.6 k/uL (1.0-4.8); Lymphocytes % (A) 17 %; MCV 87.7 fL (80.0-100.0); Mean Platelet Volume 8.1; Monocytes # (A) 0.2 k/uL (0-1.0); Monocytes % (A) 7 %; Neutrophils # (A) 2.3 k/uL (1.3-7.7); Neutrophils % (A) 73 %; RDW 16.4 % (11.5-15.5); WBC 3.2 k/uL (3.8-10.6)
[2024-09-05 13:46] LABS: Partial Thromboplastin Time 24.5 sec (22.0-30.0); Prothrombin Time 11.1 sec (10.0-12.5)
[2024-09-05 13:50] LABS: ALT 13 U/L (4-49); AST 22 U/L (17-59); African American GFR (CKD) 72 (>60 ml/min/1.73 sqM); Albumin 4.2 g/dL (3.5-5.0); Alkaline Phosphatase 72 U/L (38-126); Anion Gap 9 mmol/L; Blood Urea Nitrogen 17 mg/dL (9-20); Carbon Dioxide 23 mmol/L (22-30); Chloride 101 mmol/L (98-107); Glucose 102 mg/dL (74-99); Non-African American GFR(CKD) 62 (>60 ml/min/1.73 sqM); Potassium 4.5 mmol/L (3.5-5.1); Sodium 133 mmol/L (137-145); Total Bilirubin 0.8 mg/dL (0.2-1.3); Total Protein 7.4 g/dL (6.3-8.2)
[2024-09-05 14:00] LABS: Platelet Count 69 k/uL (150-450)
[2024-09-05 14:10] LABS: Glucose,Whole Blood 109 mg/dL (70-110)
--- NOTE | 2024-09-05 15:11 | CT ---
EXAMINATION TYPE: CT brain wo con DATE OF EXAM: 09/05/2024 COMPARISON: CLINICAL INDICATION: Male, 84 years old with history of Altered mental status; PHH, ams, recent bleed TECHNIQUE: CT of the brain performed without contrast with sagittal and coronal reformats. CT DLP: 1229.[address] CTDI: mGy Automated exposure control for dose reduction was used. FINDINGS: There is no acute intracranial hemorrhage, mass effect, or midline shift identified. The ventricles and sulci are within normal limits in size. The globes are intact and the visualized sinuses are augusto ar. IMPRESSION: No acute intracranial hemorrhage, mass effect, or midline shift is seen. [facility], , 09/05/2024 3:09 PM
--- NOTE | 2024-09-05 15:12 | XR ---
EXAMINATION TYPE: XR chest 2V DATE OF EXAM: 09/05/2024 3:00 PM COMPARISON: 09/19/2023 CLINICAL INDICATION: Male, 84 years old with history of altered mental status: Shortness of breath TECHNIQUE: XR chest 2V views of the chest are obtained. FINDINGS: Scattered senescent parenchymal changes noted. Hyperinflation compatible with COPD. No evidence for infiltrate. No evidence for atelectasis. Heart size is stable. Mediastinal structures are stable and grossly unremarkable. Again noted is prominent right first rib end. No evidence for hilar prominence. Degenerative changes dorsal spine. IMPRESSION: 1. No evidence for acute pulmonary disease. [facility], , 09/05/2024 3:10 PM
[2024-09-05 16:13] LABS: Appearance,Urine Clear (Clear); Bilirubin,Urine Negative (Negative); Blood,Urine Negative (Negative); Color,Urine Yellow; Glucose,Urine (UA) Negative (Negative); Ketones,Urine Negative (Negative); Leukocyte Esterase,Urine Negative (Negative); Nitrite,Urine Negative (Negative); PH, Urine 5.5 (5.0-8.0); Protein,Urine Trace (Negative); Specific Gravity,Urine 1.024 (1.001-1.035); Urobilinogen,Urine <2.0 mg/dL (<2.0)
[2024-09-05 16:25] LABS: Amphetamine Screen,Urine Not Detected (NotDetected); Barbiturate Screen,Urine Not Detected (NotDetected); Benzodiazepines Screen,Urine Not Detected (NotDetected); Cocaine Screen,Urine Not Detected (NotDetected); Methadone Screen, Urine Not Detected (NotDetected); Opiate Screen,Urine Not Detected (NotDetected); Oxycodone Screen, Urine Not Detected (NotDetected); Phencyclidine Screen,Urine Not Detected (NotDetected); Tricyclic Antidepressant,Urine Not Detected (NotDetected); Urn Cannabinoid Scrn Not Detected (NotDetected)
[2024-09-05 18:48] VITALS: BP 112/71; PULSE 81
== END 2024-09-05 19:17 | disposition home or self-care (01) ==
LOC: EC 11:59
DX: R41.82 Altered mental status, unspecified (principal); F17.200 Nicotine dependence, unspecified, uncomplicated
CPT/HCPCS: 36415; 70450; 71046; 80053; 80306; 81003; 82140; 84484; 85025; 85610; 85730; 93005; 96360; 99285

== ENCOUNTER 2024-12-28 16:50 | Inpatient (IN) | payer OTHER, MEDICARE ==
--- NOTE | 2024-12-28 16:57 | ED ---
General Adult HPI - General Stated complaint: Fall Time Seen by Provider: 12/28/24 16:52 Source: patient, EMS, RN notes reviewed Mode of arrival: EMS Limitations: altered mental status - History of Present Illness Initial comments: Patient is an 84-year-old male presenting to the emergency department by EMS after being found on the floor. Patient was in his residence. Unclear how long. Patient is unclear how long. Patient is unclear why he fell. Patient is on Plavix. Patient does have abrasions to the right forehead. Patient has no complaints otherwise. - Related Data Home Medications Medication Instructions Recorded Confirmed Atorvastatin Calcium 40 mg PO HS 09/20/23 09/20/23 Clopidogrel [Plavix] 75 mg PO DAILY 09/20/23 09/20/23 Darunavir/Cob/Emtri/Tenof Alaf 1 tab PO DAILY 09/20/23 09/20/23 [Symtuza [id number] mg Tab] Dolutegravir Sodium [Tivicay] 50 mg PO DAILY 09/20/23 09/20/23 Emtricitabine/Tenofovir (Tdf) 1 tab PO DAILY 09/20/23 09/20/23 [Truvada 200 mg-300 mg Tablet] Previous Rx's Medication Instructions Recorded HYDROcodone/APAP 5-325MG [[place] 1 tab PO Q6HR PRN #28 tab 09/24/23 5-325] Sennosides/Docusate Sodium 2 each PO DAILY PRN #30 tablet 09/24/23 [Senna-S 8.6-50 mg Tablet] Allergies Allergy/AdvReac Type Severity Reaction Status Date / Time No Known Allergies Allergy Verified 12/28/24 17:15 Review of Systems ROS Statement: Those systems with pertinent positive or pertinent negative responses have been documented in the HPI. ROS Other: All systems not noted in ROS Statement are negative. Constitutional: Denies: fever Eyes: Denies: eye pain ENT: Denies: ear pain Cardiovascular: Denies: chest pain Gastrointestinal: Denies: abdominal pain Musculoskeletal: Denies: back pain Neurological: Denies: headache, weakness Past Medical History Additional Past Medical History / Comment(s): HIV+ History of Any Multi-Drug Resistant Organisms: None Reported Past Anesthesia/Blood Transfusion Reactions: No Reported Reaction Past Psychological History: No Psychological Hx Reported Smoking Status: Current every day smoker Past Alcohol Use History: Rare Past Drug Use History: Marijuana General Exam Limitations: altered mental status General appearance: alert Head exam: Present: other (Right forehead abrasions) Eye exam: Present: normal appearance, PERRL, EOMI ENT exam: Present: normal exam Neck exam: Present: normal inspection. Absent: tenderness (C-collar is in place) Respiratory exam: Present: normal lung sounds bilaterally Cardiovascular Exam: Present: regular rate, normal rhythm GI/Abdominal exam: Present: soft. Absent: tenderness Extremities exam: Present: normal inspection, full ROM. Absent: tenderness Neurological exam: Present: alert, altered, CN II-XII intact. Absent: motor sensory deficit Expanded Neurological exam: Present: protecting the airway Speech: Present: fluid speech Cranial nerves: EOM's Intact: Normal Motor strength exam: RUE: 5, LUE: 5, RLE: 5, LLE: 5 Eye Response: (4) open spontaneously Motor Response: (6) obeys commands Verbal Response: (4) confused conversation Psychiatric exam: Present: normal affect, normal mood Skin exam: Present: normal color, abrasion Course Vital Signs 12/28/24 12/28/24 17:09 18:12 Temperature 97.8 F Pulse Rate 73 75 Respiratory 18 20 Rate Blood Pressure 165/86 136/82 O2 Sat by Pulse 98 96 Oximetry EKG Findings - EKG Results: EKG: interpreted by ERMD (Left axis. Precordial T wave inversion), sinus rhythm, normal QRS Medical Decision Making - Medical Decision Making Was pt. sent in by a medical professional or institution (, PA, ULTRA SOUND TECHNICIAN, urgent care, hospital, or group home...) When possible be specific @ -No Did you speak to anyone other than the patient for history (EMS, parent, family, police, friend...)? What history was obtained from this source @ -EMS provides history as patient is a poor historian and does not recall the incident Did you review nursing and triage notes (agree or disagree)? Why? @ -I reviewed and agree with nursing and triage notes Were old charts reviewed (outside hosp., previous admission, EMS record, old EKG, old radiological studies, urgent care reports/EKG's, group home records)? Report findings @ -No old charts were reviewed Differential Diagnosis (chest pain, altered mental status, abdominal pain women, abdominal pain men, vaginal bleeding, weakness, fever, dyspnea, syncope, headache, dizziness, GI bleed, back pain, seizure, CVA, palpatations, mental health, musculoskeletal)? @ -Differential Altered Mental Status: Hypoglycemia, DKA, hypercapnia, ETOH, overdose, CO poisoning, trauma, myxedema coma, HTN encephalopathy, infection, encephalitis, psychosis, intercranial hemorrhage, hepatic encephalopathy, meningitis, CVA, this is not meant to be an all-inclusive list EKG interpreted by me (3pts min.). @ -As above X-rays interpreted by me (1pt min.). @ -Chest and pelvis x-ray without acute abnormality. CT interpreted by me (1pt min.). @ -CT scan brain and cervical spine without acute abnormality. Degenerative changes to the spine U/S interpreted by me (1pt. min.). @ -None done What testing was considered but not performed or refused? (CT, X-rays, U/S, labs)? Why? @ -None What meds were considered but not given or refused? Why? @ -None Did you discuss the management of the patient with other professionals (connie marroquin i.e. , PA, ULTRA SOUND TECHNICIAN, lab, RT, psych nurse, social worker assistant, enrollment management vice president, teacher, staff mine warfare officer, nurse outreach case manager)? Give summary @ - Case discussed with Dr. Crooks who will admit [facility] physician group covering for Dr. Quigley me Was smoking cessation discussed for >3mins.? @ -No Was critical care preformed (if so, how long)? @ -No Were there social determinants of health that impacted care today? How? (Homelessness, low income, unemployed, alcoholism, drug addiction, transportation, low edu. Level, literacy, decrease access to med. care, fci, rehab)? @ -No Was there de-escalation of care discussed even if they declined (Discuss DNR or withdrawal of care, Hospice)? DNR status @ -No What co-morbidities impacted this encounter? (DM, HTN, Smoking, COPD, CAD, Cancer, CVA, ARF, Chemo, Hep., AIDS, mental health diagnosis, sleep apnea, morbid obesity)? @ -None Was patient admitted / discharged? Hospital course, mention meds given and route, prescriptions, significant lab abnormalities, going to OR and other pertinent info. @ -Hospital course patient [facility] Patient does not recall how he got there and how long he was there. Patient is only oriented to self. Patient states he lives alone and is unable to demonstrate ability to take care of himself. Unclear if patient could have had syncopal episode. Patient will be admitted, admission orders written Undiagnosed new problem with uncertain prognosis? @ -No Drug Therapy requiring intensive monitoring for toxicity (Heparin, Nitro, Insulin, Cardizem)? @ -No Were any procedures done? @ -No Diagnosis/symptom? @ -Syncope Acute, or Chronic, or Acute on Chronic? @ -Acute Uncomplicated (without systemic symptoms) or Complicated (systemic symptoms)? @ -Default Side effects of treatment? @ -No Exacerbation, Progression, or Severe Exacerbation? @ -No Poses a threat to life or bodily function? How? (Chest pain, [place], [place], pneumonia, PE, COPD, DKA, ARF, appy, cholecystitis, CVA, Diverticulitis, Homicidal, Suicidal, threat to staff... and all critical care pts) @ -No - Lab Data Result diagrams: 12/28/24 17:30 12/28/24 17:30 Lab Results 12/28/24 12/28/24 12/28/24 Range/Units 17:30 17:30 17:30 WBC 3.25 L (4.50-10.00) 10*3/uL RBC 5.03 (4.40-5.60) 10*6/uL Hgb 15.4 (13.0-17.0) g/dL Hct 46.0 (39.6-50.0) % MCV 91.5 (80.0-97.0) fL MCH 30.6 (27.0-32.0) pg MCHC 33.5 (32.0-37.0) g/dL Plt Count 71 L (140-440) 10*3/uL MPV 10.8 (9.5-12.2) fL Immature Gran % (Auto) 0.3 % Neutrophils % 69.9 % Lymphocytes % 21.8 % Monocytes % 7.4 % Eosinophils % 0.3 % Basophils % 0.3 % Immature Gran # 0.01 (0.00-0.04) 10*3/uL Neutrophils # 2.27 (1.80-7.70) 10*3/uL Lymphocytes # 0.71 L (0.90-5.00) 10*3/uL Monocytes # 0.24 (0.20-1.00) 10*3/uL Eosinophils # 0.01 L (0.04-0.35) 10*3/uL Basophils # 0.01 (0.00-0.10) 10*3/uL Immature Plt Fraction 2.4 (1.1-6.1) % PT 11.2 (10.0-12.5) sec INR 1.0 (<1.2) APTT 24.7 (22.0-30.0) sec Sodium 142 (137-145) mmol/L Potassium 4.3 (3.5-5.1) mmol/L Chloride 104 (98-107) mmol/L Carbon Dioxide 18 L (22-30) mmol/L Anion Gap 20 mmol/L BUN 14 (9-20) mg/dL Creatinine 0.84 (0.66-1.25) mg/dL Est GFR (CKD-EPI)AfAm >90 (>60 ml/min/1.73 sqM) Est GFR (CKD-EPI)NonAf 82 (>60 ml/min/1.73 sqM) Glucose 82 (74-99) mg/dL Plasma Lactic Acid Panda (0.7-2.0) mmol/L Calcium 9.5 (8.4-10.2) mg/dL Total Bilirubin 1.6 H (0.2-1.3) mg/dL AST 22 (17-59) U/L ALT 11 (4-49) U/L Alkaline Phosphatase 63 (38-126) U/L Creatine Kinase 205 H (55-170) U/L Troponin I (0.000-0.034) ng/mL Total Protein 7.7 (6.3-8.2) g/dL Albumin 4.5 (3.5-5.0) g/dL Serum Alcohol <10 mg/dL Blood Type Blood Type Recheck Bld Type Recheck Status Antibody Screen Spec Expiration Date 12/28/24 12/28/24 12/28/24 Range/Units 17:30 17:30 18:00 WBC (4.50-10.00) 10*3/uL RBC (4.40-5.60) 10*6/uL Hgb (13.0-17.0) g/dL Hct (39.6-50.0) % MCV (80.0-97.0) fL MCH (27.0-32.0) pg MCHC (32.0-37.0) g/dL Plt Count (140-440) 10*3/uL MPV (9.5-12.2) fL Immature Gran % (Auto) % Neutrophils % % Lymphocytes % % Monocytes % % Eosinophils % % Basophils % % Immature Gran # (0.00-0.04) 10*3/uL Neutrophils # (1.80-7.70) 10*3/uL Lymphocytes # (0.90-5.00) 10*3/uL Monocytes # (0.20-1.00) 10*3/uL Eosinophils # (0.04-0.35) 10*3/uL Basophils # (0.00-0.10) 10*3/uL Immature Plt Fraction (1.1-6.1) % PT (10.0-12.5) sec INR (<1.2) APTT (22.0-30.0) sec Sodium (137-145) mmol/L Potassium (3.5-5.1) mmol/L Chloride (98-107) mmol/L Carbon Dioxide (22-30) mmol/L Anion Gap mmol/L BUN (9-20) mg/dL Creatinine (0.66-1.25) mg/dL Est GFR (CKD-EPI)AfAm (>60 ml/min/1.73 sqM) Est GFR (CKD-EPI)NonAf (>60 ml/min/1.73 sqM) Glucose (74-99) mg/dL Plasma Lactic Acid Panda 1.7 (0.7-2.0) mmol/L Calcium (8.4-10.2) mg/dL Total Bilirubin (0.2-1.3) mg/dL AST (17-59) U/L ALT (4-49) U/L Alkaline Phosphatase (38-126) U/L Creatine Kinase (55-170) U/L Troponin I 0.014 (0.000-0.034) ng/mL Total Protein (6.3-8.2) g/dL Albumin (3.5-5.0) g/dL Serum Alcohol mg/dL Blood Type O Positive Blood Type Recheck O Pos Bld Type Recheck Status No Antibody Screen NEGATIVE Spec Expiration Date 12/31/20242299 Disposition Clinical Impression: Syncope Disposition: ADMITTED IP TO THIS HOSP Is patient prescribed a controlled substance at d/c from ED?: No Referrals: Gildardo Kamara DO [Primary Care Provider] - 1-2 days Time of Disposition: 20:06
[2024-12-28] MEDS: DIPH,PERTUS(ACELL)TETVAC-LF 0.5 ML VIAL IM ONE (17:22)
[2024-12-28] MEDS: SODIUM CHLORIDE 0.9% 1,000 ML IV STA (17:22)
--- NOTE | 2024-12-28 17:39 | CT ---
EXAMINATION TYPE: CT brain cspine wo con DATE OF EXAM: 12/28/2024 5:10 PM COMPARISON: 09/05/2024 CLINICAL INDICATION: Male, 84 years old with history of trauma; fall, on thinners, pain TECHNIQUE: Brain: Multiple axial CT images of the brain were obtained without IV contrast. Cspine: Axial CT images from the skull base to the inferior aspect of T2 we obtained without intraven ous contrast. Coronal and sagittal reformatted images were also reviewed. . CT DLP: 1268.2 mGycm, Automated exposure control for dose reduction was used. FINDINGS: Brain: Extra-axial spaces: No abnormal extra-axial fluid collections. Ventricular system: Dilatation in proportion to cerebral atrophy. Cerebral parenchyma: Cerebral atrophy. No acute intraparenchymal hemorrhage or mass effect. The centeno -white junction is well differentiated. Scattered hypoattenuating areas are seen within the white mat ter. Cerebellum: Unremarkable. Mass effect: No evidence of midline shift. Intracranial vasculature: Atherosclerotic calcifications of the intracranial vessels. Soft tissues: Normal. Calvarium/osseous structures: No depressed skull fracture. Paranasal sinuses and mastoid air cells: Clear. Visualized orbits: Orbital contents are intact. Cervical spine: Fracture: None. Osseous structures: Multilevel degenerative disc disease changes with endplate spurring and disc oste ophyte complex's. Vertebral alignment: Within normal limits. Spinal canal/Neural Foramina: Disc osteophyte complexes at C2-C3 through C6-C7. With at least mild sp inal canal stenosis and more moderate stenosis at C5-C6. Facet joint uncovertebral joint arthropathy scattered throughout the cervical spine with varying degrees of neural foraminal stenosis. There is m ultilevel moderate and [id number] neural foraminal stenosis throughout the levels of the cerv ical spine. Neck soft tissues: Prevertebral soft tissues are within normal limits. Other: The airway is patent. The lung apices are clear. IMPRESSION: 1. No acute intracranial process. 2. Nonspecific white matter changes, likely secondary to chronic small vessel ischemic disease. 3. No evidence of cervical spine fracture. 4. Severe multilevel degenerative disc disease. [facility], , 12/28/2024 5:37 PM
[2024-12-28 17:41] LABS: Basophils # (A) 0.01 10*3/uL (0.00-0.10); Basophils % (A) 0.3 %; Eosinophils # (A) 0.01 10*3/uL (0.04-0.35); Eosinophils % (A) 0.3 %; HCT 46.0 % (39.6-50.0); HGB 15.4 g/dL (13.0-17.0); Immature Platelet Fraction 2.4 % (1.1-6.1); Lymphocytes # (A) 0.71 10*3/uL (0.90-5.00); Lymphocytes % (A) 21.8 %; MCH 30.6 pg (27.0-32.0); MCHC 33.5 g/dL (32.0-37.0); MCV 91.5 fL (80.0-97.0); Monocytes # (A) 0.24 10*3/uL (0.20-1.00); Monocytes % (A) 7.4 %; Neutrophils # (A) 2.27 10*3/uL (1.80-7.70); Neutrophils % (A) 69.9 %; RBC 5.03 10*6/uL (4.40-5.60); RDW 15.1 % (11.5-14.5); WBC 3.25 10*3/uL (4.50-10.00)
[2024-12-28 17:52] LABS: ALT 11 U/L (4-49); AST 22 U/L (17-59); African American GFR (CKD) >90 (>60 ml/min/1.73 sqM); Albumin 4.5 g/dL (3.5-5.0); Alkaline Phosphatase 63 U/L (38-126); Anion Gap 20 mmol/L; Blood Urea Nitrogen 14 mg/dL (9-20); Calcium 9.5 mg/dL (8.4-10.2); Carbon Dioxide 18 mmol/L (22-30); Chloride 104 mmol/L (98-107); Creatine Kinase 205 U/L (55-170); Glucose 82 mg/dL (74-99); Non-African American GFR(CKD) 82 (>60 ml/min/1.73 sqM); Potassium 4.3 mmol/L (3.5-5.1); Sodium 142 mmol/L (137-145); Total Protein 7.7 g/dL (6.3-8.2)
[2024-12-28 17:57] LABS: INR 1.0 (<1.2); Partial Thromboplastin Time 24.7 sec (22.0-30.0); Prothrombin Time 11.2 sec (10.0-12.5)
[2024-12-28 18:42] LABS: Platelet Count 71 10*3/uL (140-440)
--- NOTE | 2024-12-28 18:50 | XR ---
EXAMINATION TYPE: XR pelvis AP view DATE OF EXAM: 12/28/2024 6:14 PM COMPARISON: Prior radiographs. CLINICAL INDICATION: Male, 84 years old with history of Trauma; pain [facility] TECHNIQUE: XR pelvis AP view, examined in a single projection. FINDINGS/IMPRESSION: 1. Post hip fixation changes with hardware intact. No new fractures. 2. Degeneration changes of the spine and right hip. 3. Nonspecific bowel gas pattern. [facility], , 12/28/2024 6:48 PM
--- NOTE | 2024-12-28 18:51 | XR ---
EXAMINATION TYPE: XR chest 1V portable DATE OF EXAM: 12/28/2024 6:14 PM COMPARISON: Chest radiographs from 09/05/2024. CLINICAL INDICATION: Male, 84 years old with history of trauma; [facility]ATED [facility]IN [facility] TECHNIQUE: XR chest 1V portable Frontal view of the chest. FINDINGS: Lungs/Pleura: There is no evidence of pleural effusion, focal consolidation, or pneumothorax. Pulmonary vascularity: Unremarkable. Heart/mediastinum: Cardiomediastinal silhouette is unremarkable. Musculoskeletal: Degenerative changes of the shoulder joints. IMPRESSION: Interstitial lung disease changes without acute pulmonary process. [facility], , 12/28/2024 6:49 PM
[2024-12-28] MEDS ORDERED: NALOXONE 0.4 MG/ML 1 ML VIAL IV PRN (20:06)
[2024-12-28] MEDS: LACTATED RINGERS 1,000 ML IV SCH (22:17)
[2024-12-28] MEDS ORDERED: SENNOSIDES-DOCUSATE SODIUM 1 EACH TAB PO PRN (23:27)
--- NOTE | 2024-12-28 23:46 | P.HPIM ---
History of Present Illness H&P Date: 12/28/24 Chief Complaint: Fall Patient is a 84-year-old male with a PMH of HIV was brought to to the ED by the EMS from his own residence after a fall. Patient is confused and only oriented to self. Patient unable to give history due to confusion. Per chart review, patient had a previous hospitalization in 08/2024 for altered mental status. Images: Chest x-ray 12/28: Interstitial lung disease changes without acute pulmonary process CT head/cervical spine: 1. No acute intracranial process 2. Nonspecific white matter changes, likely secondary to chronic small vessel ischemic disease. 3. No evidence of cervical spine fracture 4. Severe multilevel degenerative disc disease Pelvis x-ray 12/28: 1. Post hip fixation changes with hardware intact. No new fractures 2. Degeneration changes of the spine and right hip. 3. Nonspecific bowel gas pattern Labs: WBC 3.25/Hgb 15.4/plt count 71 Glucose 82/ Na 142/ K 4.3/ Cl 104/ CO2 18/ BUN 14/ Cr 0.84 Vitals: T 97.8F/ HR 75/ RR 20/ BP 136/82, MAP 100/ O2 sat 96% ED documentation reviewed. Review of systems: Pertinent positives and negatives as discussed in HPI, a complete review of systems was performed and all other systems are negative. Physical examination: Vital signs reviewed General: Confused Derm: no unusual rashes/lesions, warm Head: normocephalic, symmetric. abrasions around right eye. Eyes: EOMI, anicteric sclera, pupils equal round reactive to light ENT: Nose and ears atraumatic Mouth: no lip lesion, mucus membranes moist Cardiovascular: S1S2 reg, no murmur, positive dorsalis pedis pulse bilateral, no edema Lungs: CTA bilateral, no rhonchi, no rales, no accessory muscle use Abdominal: soft, nontender to palpation, no guarding Ext: muscle strength 5 out of 5 in all 4 extremities grossly, no gross muscle atrophy Neuro: CN II-XI grossly intact, no gross focal neuro deficits Psych: Alert, oriented to person only. Assessment/Plan: An 84-year-old male with a past medical history of HIV, and on Plavix was brought to the ED after a fall. #. Acute metabolic encephalopathy - Order urine analysis - Possibly due to dehydration. Start IV LR fluid - Continue home medications #. Fall status post syncopal episode - Ordered an echo #. HIV infection - Presumed compliance with home medications - On Truvada 200 mg - 300 mg, Trivicay 50 mg, and Symtuza [phone] mg. - Order CD4 count and HIV viral load - continue home meds #. Interstitial lung disease - Interstitial lung disease on chest x-ray - Continue conservative management #. 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 Giovanni Ortiz MD PGY-1 IM Dictation was produced using [employer] dictation software. please excuse any grammatical, word or spelling errors. Past Medical History Additional Past Medical History / Comment(s): HIV+ History of Any Multi-Drug Resistant Organisms: None Reported Past Anesthesia/Blood Transfusion Reactions: No Reported Reaction Past Psychological History: No Psychological Hx Reported Smoking Status: Current every day smoker Past Alcohol Use History: Rare Past Drug Use History: Marijuana Medications and Allergies Home Medications Medication Instructions Recorded Confirmed Type Atorvastatin Calcium 40 mg PO HS 09/20/23 09/20/23 History Clopidogrel [Plavix] 75 mg PO DAILY 09/20/23 09/20/23 History Darunavir/Cob/Emtri/Tenof Alaf 1 tab PO DAILY 09/20/23 09/20/23 History [Symtuza [id number] mg Tab] Dolutegravir Sodium [Tivicay] 50 mg PO DAILY 09/20/23 09/20/23 History Emtricitabine/Tenofovir (Tdf) 1 tab PO DAILY 09/20/23 09/20/23 History [Truvada 200 mg-300 mg Tablet] HYDROcodone/APAP 5-325MG [[place] 1 tab PO Q6HR PRN #28 tab 09/24/23 Rx 5-325] Sennosides/Docusate Sodium 2 each PO DAILY PRN #30 tablet 09/24/23 Rx [Senna-S 8.6-50 mg Tablet] Allergies Allergy/AdvReac Type Severity Reaction Status Date / Time No Known Allergies Allergy Verified 12/28/24 17:15 Physical Exam Vitals: Vital Signs Temp Pulse Resp BP Pulse Ox 12/28/24 22:51 97.8 F 82 16 155/88 96 12/28/24 18:12 75 20 136/82 96 12/28/24 17:09 97.8 F 73 18 165/86 98 Intake and Output 12/28/24 12/28/24 12/29/24 14:59 22:59 06:59 Other: Weight 81.647 kg Results CBC & Chem 7: 12/28/24 17:30 12/28/24 17:30 Labs: Abnormal Lab Results - Last 24 Hours (Table) 12/28/24 12/28/24 12/28/24 Range/Units 17:30 17:30 21:29 WBC 3.25 L (4.50-10.00) 10*3/uL Plt Count 71 L (140-440) 10*3/uL Lymphocytes # 0.71 L (0.90-5.00) 10*3/uL Eosinophils # 0.01 L (0.04-0.35) 10*3/uL Carbon Dioxide 18 L (22-30) mmol/L Total Bilirubin 1.6 H (0.2-1.3) mg/dL Creatine Kinase 205 H (55-170) U/L Troponin I 0.058 H* (0.000-0.034) ng/mL Assessment and Plan Assessment: I have seen and evaluated the patient today. Discussed with the resident and agree with the residents finding and plan as documented in the resident's note. Changes highlighted in blue font.
[2024-12-29 02:01] LABS: Basophils # (A) 0.01 10*3/uL (0.00-0.10); Basophils % (A) 0.3 %; Eosinophils # (A) 0.02 10*3/uL (0.04-0.35); Eosinophils % (A) 0.7 %; HCT 40.5 % (39.6-50.0); HGB 13.3 g/dL (13.0-17.0); Immature Platelet Fraction 1.7 % (1.1-6.1); Lymphocytes # (A) 0.76 10*3/uL (0.90-5.00); Lymphocytes % (A) 25.1 %; MCH 30.2 pg (27.0-32.0); MCHC 32.8 g/dL (32.0-37.0); MCV 91.8 fL (80.0-97.0); Monocytes # (A) 0.29 10*3/uL (0.20-1.00); Monocytes % (A) 9.6 %; Neutrophils # (A) 1.94 10*3/uL (1.80-7.70); Neutrophils % (A) 64.0 %; RBC 4.41 10*6/uL (4.40-5.60); RDW 15.4 % (11.5-14.5); WBC 3.03 10*3/uL (4.50-10.00)
[2024-12-29 02:18] LABS: INR 1.1 (<1.2); Partial Thromboplastin Time 25.9 sec (22.0-30.0); Prothrombin Time 12.3 sec (10.0-12.5)
[2024-12-29] MEDS: ASPIRIN 325 MG TAB PO STA (02:28)
[2024-12-29 03:19] LABS: Platelet Count 66 10*3/uL (140-440)
[2024-12-29 04:29] LABS: Bilirubin,Urine 1+ (Negative); Blood,Urine Negative (Negative); Color,Urine Yellow; Glucose,Urine (UA) Negative (Negative); Ketones,Urine 2+ (Negative); Leukocyte Esterase,Urine Negative (Negative); Nitrite,Urine Negative (Negative); PH, Urine 5.5 (5.0-8.0); Protein,Urine Trace (Negative); Specific Gravity,Urine 1.025 (1.001-1.035); Urobilinogen,Urine 2.0 mg/dL (<2.0)
[2024-12-29] MEDS: HEPARIN SODIUM 1,000 UN/ML (10ML VL) IV ONE (04:53)
[2024-12-29] MEDS: HEPARIN SOD,PORK IN 0.45% NACL 25,000 UNIT in 0.45% NACL 1 250ML.BAG IV SCH (04:54)
[2024-12-29 05:00] LABS: Barbiturate Screen,Urine Not Detected (NotDetected); Benzodiazepines Screen,Urine Not Detected (NotDetected); Opiate Screen,Urine Not Detected (NotDetected); Oxycodone Screen, Urine Not Detected (NotDetected); Phencyclidine Screen,Urine Not Detected (NotDetected); Tricyclic Antidepressant,Urine Not Detected (NotDetected); Urn Cannabinoid Scrn Not Detected (NotDetected)
[2024-12-29 08:14] LABS: African American GFR (CKD) >90 (>60 ml/min/1.73 sqM); Anion Gap 9 mmol/L; Blood Urea Nitrogen 11 mg/dL (9-20); Calcium 9.1 mg/dL (8.4-10.2); Carbon Dioxide 25 mmol/L (22-30); Chloride 107 mmol/L (98-107); Glucose 85 mg/dL (74-99); Non-African American GFR(CKD) 81 (>60 ml/min/1.73 sqM); Potassium 4.2 mmol/L (3.5-5.1); Sodium 141 mmol/L (137-145)
[2024-12-29 08:27] LABS: Basophils # (A) 0.01 X 10*3/uL (0.00-0.10); Basophils % (A) 0.3 %; Eosinophils # (A) 0.02 X 10*3/uL (0.04-0.35); Eosinophils % (A) 0.7 %; HCT 41.9 % (39.6-50.0); HGB 13.4 g/dL (13.0-17.0); Immature Grans, Automated 0.30 %; Immature Platelet Fraction 4.4 % (1.1-6.1); Lymphocytes # (A) 0.71 X 10*3/uL (0.90-5.00); Lymphocytes % (A) 24.7 %; MCH 29.8 pg (27.0-32.0); MCHC 32.0 g/dL (32.0-37.0); MCV 93.1 FL (80.0-97.0); Monocytes # (A) 0.29 X 10*3/uL (0.20-1.00); Monocytes % (A) 10.1 %; NRBC Per 100 WBC 0 X 10*3/uL (0.00-0.01); Neutrophils # (A) 1.83 X 10*3/uL (1.80-7.70); Neutrophils % (A) 63.9 %; Platelet Count 68 X 10*3/uL (140-440); RBC 4.50 X 10*6/uL (4.40-5.60); RDW 15.4 % (11.5-14.5); WBC 2.87 X 10*3/uL (4.50-10.00)
[2024-12-29 08:28] LABS: ALT 8 U/L (10-49); AST 20 U/L (14-35); Albumin 3.6 g/dL (3.8-4.9); Albumin/Globulin Ratio 1.38 Ratio (1.60-3.17); Alkaline Phosphatase 52 U/L (41-126); Anion Gap 15.50 mmol/L (4.00-12.00); BUN/Creat Ratio 13.00 Ratio (12.00-20.00); Blood Urea Nitrogen 10.4 mg/dL (9.0-27.0); Calcium 8.6 mg/dL (8.7-10.3); Carbon Dioxide 20.5 mmol/L (21.6-31.8); Chloride 104 mmol/L (96-109); Globulin 2.6 g/dL (1.6-3.3); Glucose 88 mg/dL (70-110); Potassium 4.1 mmol/L (3.5-5.5); Sodium 140 mmol/L (135-145); Total Protein 6.2 g/dL (6.2-8.2)
[2024-12-29] MEDS ORDERED: ENOXAPARIN 40 MG/0.4 ML SYRINGE SQ SCH (09:00)
[2024-12-29] MEDS: ASPIRIN 81 MG PO SCH (09:30)
[2024-12-29] MEDS: METOPROLOL TARTRATE 12.5 MG TAB PO SCH (09:30)
[2024-12-29] MEDS: EMTRICITABINE/TENOFOVIR 200MG/300MG PO SCH (09:30)
[2024-12-29] MEDS: CLOPIDOGREL 75 MG TAB PO SCH (09:30)
[2024-12-29] MEDS: [UNRECOGNIZED DRUG - OTHER] PO SCH (09:31)
[2024-12-29] MEDS ORDERED: DOLUTEGRAVIR SODIUM 50 MG TABLET PO SCH (09:45)
[2024-12-29] MEDS: DOLUTEGRAVIR SODIUM 50 MG TABLET PO SCH ×2 (10:03→10:41)
--- NOTE | 2024-12-29 11:31 | P.CRDCN ---
History of Present Illness History of present illness: HISTORY OF PRESENT ILLNESS: This is a 84-year-old male with a past medical history significant for coronary artery disease, hypertension, hyperlipidemia, carotid stenosis, and HIV. Patient follows in the office with Dr. Rodríguez but has not been seen since September 2022. We have been asked to see the patient in consultation for elevated troponin. Patient examined at the bedside. Patient is a poor historian. He is alert and oriented x 1. There is no family present. According to the nurse he was found on the floor yesterday by one of his home health care workers. It is unknown how long he was down for. The patient is not able to give much history. He was found to have elevated troponins and was started on IV heparin. The patient currently denies any chest pain or shortness of breath. DIAGNOSTICS: - Multiple EKGs performed revealing sinus mechanism with significant baseline artifact. According to nursing, unable to get a better quality EKG. - Chest xray interstitial lung disease without acute pulmonary process. - Laboratory data: Troponin 0.014. 0.058. 0.091. 0.104. 0.107 - Current home cardiac medications include none. - No previous echocardiogram, stress test, or cardiac catheterization available in EMR for review REVIEW OF SYSTEMS: At the time of my exam: Unable to obtain through review of systems secondary to altered mental status PHYSICAL EXAM: VITAL SIGNS: Reviewed. GENERAL: Well-developed in no acute distress. HEENT: Head is normocephalic. Pupils are equal, round. Sclerae anicteric. Mucous membranes of the mouth are moist. Neck supple. No JVD or thyromegaly LUNGS: Respirations even and unlabored. Lungs essentially clear to auscultation bilaterally. HEART: Regular rate and rhythm. S1 and S2 heard. ABDOMEN: Soft. Nondistended. Nontender. EXTREMITIES: Normal range of motion. No clubbing or cyanosis. Peripheral pulses intact. No lower extremity edema NEUROLOGIC: Awake and alert. Oriented x 1. ASSESSMENT: Status post fall, found on floor with unknown downtime, possible syncope Non-STEMI Coronary artery disease with previous angioplasty of the RCA Hypertension Hyperlipidemia Carotid stenosis History of HIV PLAN: No further troponins to be drawn Multiple EKGs performed revealing sinus mechanism with significant baseline artifact. According to nursing, unable to get a better quality EKG. Obtain 2D echo to assess cardiac structure and function Continue IV heparin Add aspirin 81 mg daily Add metoprolol 12.5 mg twice a day Continue with medical management this time. No plans for cardiac catheterization. Further recommendations pending patient course Nurse practitioner note has been reviewed by physician. Signing provider agrees with the documented findings, assessment, and plan of care documented by DIAMOND [employer]W OPERATOR as a scribe. Past Medical History Additional Past Medical History / Comment(s): HIV+ History of Any Multi-Drug Resistant Organisms: None Reported Past Anesthesia/Blood Transfusion Reactions: No Reported Reaction Past Psychological History: No Psychological Hx Reported Smoking Status: Current every day smoker Past Alcohol Use History: Rare Past Drug Use History: Marijuana Medications and Allergies Home Medications Medication Instructions Recorded Confirmed Type No Known Home Medications 12/29/24 12/29/24 History Allergies Allergy/AdvReac Type Severity Reaction Status Date / Time No Known Allergies Allergy Verified 12/29/24 09:54 Physical Exam Vitals: Vital Signs Temp Pulse Pulse Resp BP BP BP 12/29/24 07:00 97.6 F 57 L 16 140/70 12/28/24 23:30 98.1 F 66 16 149/68 12/28/24 22:51 97.8 F 82 16 155/88 12/28/24 18:12 75 20 136/82 12/28/24 17:09 97.8 F 73 18 165/86 Pulse Ox 12/29/24 07:00 96 12/28/24 23:30 98 12/28/24 22:51 96 12/28/24 18:12 96 12/28/24 17:09 98 Intake and Output 12/28/24 12/29/24 12/29/24 22:59 06:59 14:59 Intake Total 118 Balance 118 Intake: Oral 118 Other: # Voids 1 Weight 81.647 kg 81.647 kg Results 12/29/24 03:20 12/29/24 07:08 Cardiac Enzymes 12/28/24 12/28/24 12/28/24 Range/Units 17:30 17:30 21:29 AST 22 (17-59) U/L Troponin I 0.014 0.058 H* (0.000-0.034) ng/mL 12/29/24 12/29/24 12/29/24 Range/Units 00:05 03:20 03:20 AST 20 (17-59) U/L Troponin I 0.091 H* 0.104 H* (0.000-0.034) ng/mL 12/29/24 Range/Units 07:08 AST (17-59) U/L Troponin I 0.107 H* (0.000-0.034) ng/mL Coagulation 12/28/24 12/29/24 Range/Units 17:30 01:23 PT 11.2 12.3 (10.0-12.5) sec APTT 24.7 25.9 (22.0-30.0) sec CBC 12/28/24 12/29/24 12/29/24 Range/Units 17:30 01:23 03:20 WBC 3.25 L 3.03 L 2.87 L (4.50-10.00) 10*3/uL RBC 5.03 4.41 4.50 (4.40-5.60) 10*6/uL Hgb 15.4 13.3 13.4 (13.0-17.0) g/dL Hct 46.0 40.5 41.9 (39.6-50.0) % Plt Count 71 L 66 L 68 L (140-440) 10*3/uL Comprehensive Metabolic Panel 12/28/24 12/29/24 12/29/24 Range/Units 17:30 03:20 07:08 Sodium 142 140 141 (137-145) mmol/L Potassium 4.3 4.1 4.2 (3.5-5.1) mmol/L Chloride 104 104 107 (98-107) mmol/L Carbon Dioxide 18 L 20.5 L 25 (22-30) mmol/L BUN 14 10.4 11 (9-20) mg/dL Creatinine 0.84 0.8 0.86 (0.66-1.25) mg/dL Glucose 82 88 85 (74-99) mg/dL Calcium 9.5 8.6 L 9.1 (8.4-10.2) mg/dL AST 22 20 (17-59) U/L ALT 11 8 L (4-49) U/L Alkaline Phosphatase 63 52 (38-126) U/L Total Protein 7.7 6.2 (6.3-8.2) g/dL Albumin 4.5 3.6 L (3.5-5.0) g/dL Current Medications Generic Name Dose Route Start Last Admin Trade Name Freq PRN Reason Stop Dose Admin Aspirin 81 mg 12/29/24 09:00 12/29/24 09:30 Aspirin 81 Mg PO 81 mg DAILY YENY Administration Atorvastatin Calcium 40 mg 12/29/24 21:00 Atorvastatin 40 Mg Tab PO HS YENY Clopidogrel Bisulfate 75 mg 12/29/24 09:00 12/29/24 09:30 Clopidogrel 75 Mg Tab PO 75 mg DAILY YENY Administration Heparin Sodium (Porcine) 0 unit 12/29/24 01:08 Heparin Sodium 1,000 Un/Ml (10ml Vl) IV PER PROTOCOL PRN Low PTT Protocol Lactated Ringer's 1,000 mls @ 125 mls/hr 12/28/24 21:15 12/29/24 06:21 Lactated Ringers IV 12/29/24 21:14 Not Given .Q8H YENY Heparin Sodium/Sodium Chloride 250 mls @ 9.798 mls/hr 12/29/24 01:15 12/29/24 04:54 25,000 unit/ Sodium Chloride IV 12 units/kg/hr .Q24H YENY 9.798 mls/hr Administration Protocol 12 UNITS/KG/HR Metoprolol Tartrate 12.5 mg 12/29/24 09:00 12/29/24 09:30 Metoprolol Tartrate 12.5 Mg Tab PO 12.5 mg BID [facility] Administration Naloxone HCl 0.2 mg 12/28/24 20:06 Naloxone 0.4 Mg/Ml 1 Ml Vial IV Q2M PRN Opioid Reversal Non-Formulary Medication 1 tab 12/29/24 09:00 12/29/24 09:31 Darunavir/Cob/Emtri/Tenof Alaf [Symtuza [id number] Mg Tab] PO Not Given DAILY [facility] Dolutegravir Sodium 1 each 12/29/24 10:00 12/29/24 10:03 50 Mg Tablet PO Not Given DAILY [facility] Emtricitabine/ 1 each 12/30/24 09:00 Tenofovir 200mg/ PO 300mg DAILY [facility] Senna/Docusate Sodium 2 each 12/28/24 23:27 Sennosides-Docusate Sodium 1 Each Tab PO DAILY PRN Constipation Intake and Output 12/28/24 12/29/24 12/29/24 22:59 06:59 14:59 Intake Total 118 Balance 118 Intake: Oral 118 Other: # Voids 1 Weight 81.647 kg 81.647 kg 12/29/24 03:20 12/29/24 07:08
[2024-12-29 12:03] LABS: HCT 41.3 % (39.6-50.0); HGB 13.9 g/dL (13.0-17.0); MCH 30.2 pg (27.0-32.0); MCHC 33.7 g/dL (32.0-37.0); MCV 89.8 fL (80.0-97.0); RBC 4.60 10*6/uL (4.40-5.60); RDW 15.6 % (11.5-14.5); WBC 2.97 10*3/uL (4.50-10.00)
[2024-12-29 13:00] LABS: Platelet Count 66 10*3/uL (140-440)
--- NOTE | 2024-12-29 13:24 | CA ---
Transthoracic Echo Report Name: Jesus Gonzalez Age: 84 Gender: M : 1940 Exam Date: 12/29/2024 10:37 Exam Location: [facility] Ht (in): 72 Wt (lb): 180 Ordering Physician: Anthony Davila MD Attending/Referring Phys: Radiologic Technology Instructor Reyna Wolf RDCS Procedure CPT: Indications: Syncope Cardiac Hx: Technical Quality: Fair Contrast 1: Total Dose (mL): Contrast 2: Total Dose (mL): MEASUREMENTS (Male / Female) Normal Values 2D ECHO LV Diastolic Diameter PLAX 4.3 cm 4.2 - 5.9 / 3.9 - 5.3 cm LV Systolic Diameter PLAX 2.8 cm IVS Diastolic Thickness 0.9 cm 0.6 - 1.0 / 0.6 - 0.9 cm LVPW Diastolic Thickness 1.0 cm 0.6 - 1.0 / 0.6 - 0.9 cm LV Relative Wall Thickness 0.4 RV Internal Dim ED PLAX 2.2 cm LA Systolic Diameter LX 3.3 cm 3.0 - 4.0 / 2.7 - 3.8 cm LV Diastolic Volume MOD BP 40.2 cm??? 67 - 155 / 56 - 104 cm??? LV Systolic Volume MOD BP 13.1 cm??? 22 - 58 / 19 - 49 cm??? LV Ejection Fraction MOD BP 67.4 % >= 55 % LV Cardiac Index MOD BP 769.3 cm???/min???m??? LV Diastolic Volume MOD 4C 40.1 cm??? LV Systolic Volume MOD 4C 10.5 cm??? LV Ejection Fraction MOD 4C 73.8 % LV Cardiac Index MOD 4C 840.2 cm???/min???m??? LV Diastolic Length 4C 6.7 cm LV Systolic Length 4C 5.0 cm LV Diastolic Volume MOD 2C 39.2 cm??? LV Systolic Volume MOD 2C 14.4 cm??? LV Ejection Fraction MOD 2C 63.4 % LV Cardiac Index MOD 2C 707.0 cm???/min???m??? LV Diastolic Length 2C 6.9 cm LV Systolic Length 2C 5.8 cm LA Volume 33.1 cm??? 18 - 58 / 22 - 52 cm??? LA Volume Index 16.2 cm???/m??? 16 - 28 cm???/m??? M-MODE Aortic Root Diameter MM 3.5 cm LA Systolic Diameter MM 3.1 cm LA Ao Ratio MM 0.9 AV Cusp Separation MM 2.0 cm DOPPLER AI Peak Velocity 305.6 cm/s AI Peak Gradient 37.3 mmHg AI Pressure Half Time 1445.7 ms MV Area PHT 3.2 cm??? Mitral E Point Velocity 77.1 cm/s Mitral A Point Velocity 91.0 cm/s Mitral E to A Ratio 0.8 MV Deceleration Time 239.4 ms TR Peak Velocity 319.0 cm/s TR Peak Gradient 40.7 mmHg Right Ventricular Systolic Press 50.7 mmHg FINDINGS Left Ventricle Left ventricular ejection fraction is estimated at 55-60 %. Normal left ventricular systolic function with no obvious regional wall motion abnormalities. Left ventricular cavity size normal. Left ventricular wall thickness normal. Right Ventricle Mild right ventricular dilatation. Moderate pulmonary hypertension. Right Atrium Moderate right atrial dilatation. Left Atrium Mild left atrial dilatation. Mitral Valve Structurally normal mitral valve. Mild mitral regurgitation. No mitral stenosis. Aortic Valve Trileaflet aortic valve. No aortic stenosis. Trace to mild aortic regurgitation. Tricuspid Valve Myxomatous (redundant) tricuspid valve. [id number] tricuspid regurgitation. No tricuspid stenosis. Pulmonic Valve Structurally normal pulmonic valve. Mild pulmonic regurgitation. No pulmonic stenosis. Pericardium No pericardial or pleural effusion. Echo free space anterior to the right ventricle likely represents a fat pad. Aorta Aorta at upper limits of normal. CONCLUSIONS Normal biventricular systolic function Moderate pulmonary hypertension Moderate to severe TR Previewed by: Dr. Tal Kulkarni MD (Electronically Signed) Final Date: 29 December 2024 13:23
--- NOTE | 2024-12-29 14:30 | P.PN ---
Subjective Progress Note Date: 12/29/24 Hospital Course: Patient is an 84-year-old male with past medical history of HIV who was brought to the ED by EMS after a fall at his house and was admitted for acute encephalopathy and syncopal episode. Cardiology and ID were consulted. Subjective: Patient seen and examined at bedside. No acute events overnight. Information is limited as patient is only alert and oriented to self. This morning patient has no complaints. He denies chest pain, shortness of breath, and abdominal pain. Pertinent positives and negatives as discussed above, a complete review of systems was performed and all other systems are negative. Vitals: Signs Reviewed Physical Exam: General: Thin, ill-appearing, nontoxic, no distress, appears at stated Derm: warm, dry, intact, bruises present on all extremities Head: Abrasion to right forehead, normocephalic, symmetric Eyes: EOMI, anicteric sclera Mouth: no lip lesion Cardiovascular: S1 S2 reg, no murmur, rubs, or gallops Lungs: Limited due to patient's positioning, no rhonchi, no rales, no accessory muscle use Abdominal: soft, non-tender to palpation Extremities: no gross muscle atrophy, no edema Neuro: Alert, Oriented only to self, CNII-XII grossly intact, gait normal Psych: well appearing, appropriate affect Data Received Today: Pertinent Labs: WBC 2.97, hemoglobin 13.9, platelets 66, sodium 141, potassium 4.2, chloride 107, bicarb 25, anion gap 9, BUN 11, creatinine 0.86, total bilirubin 1.0, troponins trended upwards to 0.107 Imaging: CT head/spine -no acute process, nonspecific white matter change chronic small vessel ischemic disease, no cervical spine fracture, severe multilevel degenerative disc disease Pelvis x-ray -no acute fractures left hip hardware intact, degenerative changes of right hip and spine Chest x-ray independently read -unremarkable Echo -EF 55-60, normal left ventricular systolic function, mild right ventricular dilation, moderate pulmonary hypertension, moderate left atrial dilation, moderate to severe tricuspid regurgitation Assessment and Plan: 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 No plans for cardiac catheterization at this time. -Continue LR fluids at 125 mL/h -Continue atorvastatin 40 mg at bedtime -Continue Plavix 75 mg daily -Anion gap today has decreased to 9, may be acute metabolic encephalopathy due to HIV medications -Continue home HIV medications -Ordered CD4 and HIV viral load -ID consulted for HIV and low lymphocytes, recs appreciated -Will call patient's family to gather more information -PT/OT consulted Interstitial lung disease -Continue to monitor Presumed CVA or TX -Continue home Plavix, aspirin DVT ppx: Heparin Code status: Undetermined at this time Anticipated discharge place: Pending clinical course Anticipated discharge time: Pending clinical course Amelia Cardenas DO PGY-1 IM Dictation was produced using [employer] dictation software. please excuse any grammatical, word or spelling errors. I saw and evaluated the patient during the quiros and critical portions of this encounter, and discussed the case in detail with the resident author of this note, I agree with the Assessment and Plan, and my changes, if any, are highlighted in blue. Objective - Vital Signs Vital signs: Vital Signs Temp 97.6 F 12/29/24 07:00 Pulse 57 L 12/29/24 07:00 Resp 16 12/29/24 07:00 BP 140/70 12/29/24 07:00 Pulse Ox 96 12/29/24 07:00 FiO2 Intake & Output 12/28/24 12/29/24 12/29/24 18:59 06:59 18:59 Intake Total 202.916 Balance 202.916 Weight 81.647 kg 81.647 kg Intake: Intake, IV Titration 84.916 Amount Heparin Sod,Pork in 0.45% 84.916 NaCl 25,000 unit In 0.45 % NaCl 1 250ml.bag @ 12 UNITS/KG/HR 9.798 mls/hr IV .Q24H YENY Rx#: [id number] Oral 118 Other: # Voids 1 - Labs CBC & Chem 7: 12/29/24 10:23 12/29/24 07:08 Labs: Abnormal Lab Results - Last 24 Hours (Table) 12/28/24 12/28/24 12/28/24 Range/Units 17:30 17:30 21:29 WBC 3.25 L (4.50-10.00) 10*3/uL RDW (11.5-14.5) % Plt Count 71 L (140-440) 10*3/uL Lymphocytes # 0.71 L (0.90-5.00) 10*3/uL Eosinophils # 0.01 L (0.04-0.35) 10*3/uL APTT (22.0-30.0) sec Carbon Dioxide 18 L (22-30) mmol/L Anion Gap (4.00-12.00) mmol/L Calcium (8.7-10.3) mg/dL Total Bilirubin 1.6 H (0.2-1.3) mg/dL ALT (10-49) U/L Creatine Kinase 205 H (55-170) U/L Troponin I 0.058 H* (0.000-0.034) ng/mL Albumin (3.8-4.9) g/dL Albumin/Globulin Ratio (1.60-3.17) Ratio Urine Protein (Negative) Urine Ketones (Negative) Urine Bilirubin (Negative) 12/29/24 12/29/24 12/29/24 Range/Units 00:05 01:23 03:20 WBC 3.03 L 2.87 L (4.50-10.00) 10*3/uL RDW 15.4 H 15.4 H (11.5-14.5) % Plt Count 66 L 68 L (140-440) 10*3/uL Lymphocytes # 0.76 L 0.71 L (0.90-5.00) 10*3/uL Eosinophils # 0.02 L 0.02 L (0.04-0.35) 10*3/uL APTT (22.0-30.0) sec Carbon Dioxide (22-30) mmol/L Anion Gap (4.00-12.00) mmol/L Calcium (8.7-10.3) mg/dL Total Bilirubin (0.2-1.3) mg/dL ALT (10-49) U/L Creatine Kinase (55-170) U/L Troponin I 0.091 H* (0.000-0.034) ng/mL Albumin (3.8-4.9) g/dL Albumin/Globulin Ratio (1.60-3.17) Ratio Urine Protein (Negative) Urine Ketones (Negative) Urine Bilirubin (Negative) 12/29/24 12/29/24 12/29/24 Range/Units 03:20 03:20 04:18 WBC (4.50-10.00) 10*3/uL RDW (11.5-14.5) % Plt Count (140-440) 10*3/uL Lymphocytes # (0.90-5.00) 10*3/uL Eosinophils # (0.04-0.35) 10*3/uL APTT (22.0-30.0) sec Carbon Dioxide 20.5 L (22-30) mmol/L Anion Gap 15.50 H (4.00-12.00) mmol/L Calcium 8.6 L (8.7-10.3) mg/dL Total Bilirubin (0.2-1.3) mg/dL ALT 8 L (10-49) U/L Creatine Kinase (55-170) U/L Troponin I 0.104 H* (0.000-0.034) ng/mL Albumin 3.6 L (3.8-4.9) g/dL Albumin/Globulin Ratio 1.38 L (1.60-3.17) Ratio Urine Protein Trace H (Negative) Urine Ketones 2+ H (Negative) Urine Bilirubin 1+ H (Negative) 12/29/24 12/29/24 12/29/24 Range/Units 07:08 10:23 10:23 WBC 2.97 L (4.50-10.00) 10*3/uL RDW 15.6 H (11.5-14.5) % Plt Count 66 L (140-440) 10*3/uL Lymphocytes # (0.90-5.00) 10*3/uL Eosinophils # (0.04-0.35) 10*3/uL APTT 140.6 H* (22.0-30.0) sec Carbon Dioxide (22-30) mmol/L Anion Gap (4.00-12.00) mmol/L Calcium (8.7-10.3) mg/dL Total Bilirubin (0.2-1.3) mg/dL ALT (10-49) U/L Creatine Kinase (55-170) U/L Troponin I 0.107 H* (0.000-0.034) ng/mL Albumin (3.8-4.9) g/dL Albumin/Globulin Ratio (1.60-3.17) Ratio Urine Protein (Negative) Urine Ketones (Negative) Urine Bilirubin (Negative)
[2024-12-29] MEDS: ATORVASTATIN 40 MG TAB PO SCH (20:51)
[2024-12-30 05:58] LABS: INR 1.0 (<1.2); Partial Thromboplastin Time 23.4 sec (22.0-30.0); Prothrombin Time 11.4 sec (10.0-12.5)
[2024-12-30 06:04] LABS: African American GFR (CKD) >90 (>60 ml/min/1.73 sqM); Anion Gap 9 mmol/L; Blood Urea Nitrogen 13 mg/dL (9-20); Calcium 9.1 mg/dL (8.4-10.2); Carbon Dioxide 23 mmol/L (22-30); Chloride 100 mmol/L (98-107); Glucose 84 mg/dL (74-99); Magnesium 1.8 mg/dL (1.6-2.3); Non-African American GFR(CKD) 86 (>60 ml/min/1.73 sqM); Potassium 3.7 mmol/L (3.5-5.1); Sodium 132 mmol/L (137-145)
[2024-12-30 06:17] LABS: Basophils # (A) 0.01 10*3/uL (0.00-0.10); Basophils % (A) 0.4 %; Eosinophils # (A) 0.08 10*3/uL (0.04-0.35); Eosinophils % (A) 2.9 %; HCT 37.2 % (39.6-50.0); HGB 12.5 g/dL (13.0-17.0); Lymphocytes # (A) 0.57 10*3/uL (0.90-5.00); Lymphocytes % (A) 20.9 %; MCH 30.1 pg (27.0-32.0); MCHC 33.6 g/dL (32.0-37.0); MCV 89.6 fL (80.0-97.0); Monocytes # (A) 0.23 10*3/uL (0.20-1.00); Monocytes % (A) 8.4 %; Neutrophils # (A) 1.83 10*3/uL (1.80-7.70); Neutrophils % (A) 67.0 %; RBC 4.15 10*6/uL (4.40-5.60); RDW 15.3 % (11.5-14.5); WBC 2.73 10*3/uL (4.50-10.00)
[2024-12-30 06:22] LABS: Platelet Count 63 10*3/uL (140-440)
[2024-12-30] MEDS: HEPARIN SODIUM 1,000 UN/ML (10ML VL) IV PRN (06:36)
--- NOTE | 2024-12-30 07:15 | P.CONS ---
History of Present Illness - Reason for Consult Consult date: 12/29/24 HIV with low lymphocyte count Requesting physician: Jennifer Cardenas - Chief Complaint Found unresponsive on the floor x 1 day - History of Present Illness Patient is a 84-year-old male with a past medical history significant for HIV for many years and the patient used to follow-up with me in the outpatient setting and the patient was initially on combination of Truvada Tivicay and prezcobix for many years this last seen in the office in June 2023 and the patient was subsequently lost to follow-up patient was brought back to the office by the daughter in September 2024 with concern for the patient not taking his medication patient has significant decline in his clinical condition and was looking very weak and cachectic at that point the patient did have repeat HIV testing done on 09/28/2024 patient was noticed to have a CD4 count of 87 viral load of 21,594 and genotype did not show significant resistant pattern, prescription for Biktarvy was sent on 10/14/2024, however it is not very clear if the patient anyone took that medication, patient has not been brought to the ER after the patient was found to be on the floor by the home care nurses were e valuated clear how long the patient has been on the floor or the patient did fell down noticed to have some abrasion to the right forehead patient on presentation to the hospital was afebrile no fever have been called subsequently patient was noted to be mildly bradycardic but not hypotensive or hypoxic no need for supplemental oxygen he did have a white count of 2.97 creatinine 0.86 troponin was elevated urine has been negative urine drug screen was negative patient did have a head and cervical spine CT no acute abdominal process nonspecific white matter changes no evidence for cervical spine fracture chest x-ray interstitial lung disease changes without acute pulmonary process patient has been admitted to hospital currently being evaluated by cardiology infectious disease was consulted regarding HIV with low lymphocytes most information has been obtained from review of the chart and talking nursing staff the patient was unresponsive and could not provide any history Review of Systems Positive points has been mentioned in HPI complete review could not be obtained because of his underlying mental status Past Medical History Additional Past Medical History / Comment(s): HIV+ History of Any Multi-Drug Resistant Organisms: None Reported Past Anesthesia/Blood Transfusion Reactions: No Reported Reaction Past Psychological History: No Psychological Hx Reported Smoking Status: Current every day smoker Past Alcohol Use History: Rare Past Drug Use History: Marijuana Medications and Allergies Home Medications Medication Instructions Recorded Confirmed Type No Known Home Medications 12/29/24 12/29/24 History Allergies Allergy/AdvReac Type Severity Reaction Status Date / Time No Known Allergies Allergy Verified 12/29/24 09:54 Physical Exam Vitals: Vital Signs Temp Pulse Pulse Resp BP BP BP 12/29/24 07:00 97.6 F 57 L 16 140/70 12/28/24 23:30 98.1 F 66 16 149/68 12/28/24 22:51 97.8 F 82 16 155/88 12/28/24 18:12 75 20 136/82 12/28/24 17:09 97.8 F 73 18 165/86 Pulse Ox 12/29/24 07:00 96 12/28/24 23:30 98 12/28/24 22:51 96 12/28/24 18:12 96 12/28/24 17:09 98 Intake and Output 12/28/24 12/29/24 12/29/24 22:59 06:59 14:59 Intake Total 118 Balance 118 Intake: Oral 118 Other: # Voids 1 Weight 81.647 kg 81.647 kg GENERAL DESCRIPTION: Elderly male lying in bed, no distress. No tachypnea or accessory muscle of respiration use. HEENT: Shows Pallor , no scleral icterus. Oral mucous membrane is dry. No pharyngeal erythema or thrush NECK: Trachea central, no thyromegaly. LUNGS: Unlabored breathing. Clear to auscultation anteriorly. No wheeze or crackle. HEART: S1, S2, regular rate and rhythm. No loud murmur ABDOMEN: Soft, no tenderness , EXTREMITIES: No edema of feet. SKIN: No rash, no masses palpable. NEUROLOGICAL: The patient is unresponsive orientation could not determine Results CBC & Chem 7: 12/30/24 05:15 12/30/24 05:15 Labs: Abnormal Lab Results - Last 24 Hours (Table) 12/28/24 12/28/24 12/28/24 Range/Units 17:30 17:30 21:29 WBC 3.25 L (4.50-10.00) 10*3/uL RDW (11.5-14.5) % Plt Count 71 L (140-440) 10*3/uL Lymphocytes # 0.71 L (0.90-5.00) 10*3/uL Eosinophils # 0.01 L (0.04-0.35) 10*3/uL Carbon Dioxide 18 L (22-30) mmol/L Anion Gap (4.00-12.00) mmol/L Calcium (8.7-10.3) mg/dL Total Bilirubin 1.6 H (0.2-1.3) mg/dL ALT (10-49) U/L Creatine Kinase 205 H (55-170) U/L Troponin I 0.058 H* (0.000-0.034) ng/mL Albumin (3.8-4.9) g/dL Albumin/Globulin Ratio (1.60-3.17) Ratio Urine Protein (Negative) Urine Ketones (Negative) Urine Bilirubin (Negative) 12/29/24 12/29/24 12/29/24 Range/Units 00:05 01:23 03:20 WBC 3.03 L 2.87 L (4.50-10.00) 10*3/uL RDW 15.4 H 15.4 H (11.5-14.5) % Plt Count 66 L 68 L (140-440) 10*3/uL Lymphocytes # 0.76 L 0.71 L (0.90-5.00) 10*3/uL Eosinophils # 0.02 L 0.02 L (0.04-0.35) 10*3/uL Carbon Dioxide (22-30) mmol/L Anion Gap (4.00-12.00) mmol/L Calcium (8.7-10.3) mg/dL Total Bilirubin (0.2-1.3) mg/dL ALT (10-49) U/L Creatine Kinase (55-170) U/L Troponin I 0.091 H* (0.000-0.034) ng/mL Albumin (3.8-4.9) g/dL Albumin/Globulin Ratio (1.60-3.17) Ratio Urine Protein (Negative) Urine Ketones (Negative) Urine Bilirubin (Negative) 12/29/24 12/29/24 12/29/24 Range/Units 03:20 03:20 04:18 WBC (4.50-10.00) 10*3/uL RDW (11.5-14.5) % Plt Count (140-440) 10*3/uL Lymphocytes # (0.90-5.00) 10*3/uL Eosinophils # (0.04-0.35) 10*3/uL Carbon Dioxide 20.5 L (22-30) mmol/L Anion Gap 15.50 H (4.00-12.00) mmol/L Calcium 8.6 L (8.7-10.3) mg/dL Total Bilirubin (0.2-1.3) mg/dL ALT 8 L (10-49) U/L Creatine Kinase (55-170) U/L Troponin I 0.104 H* (0.000-0.034) ng/mL Albumin 3.6 L (3.8-4.9) g/dL Albumin/Globulin Ratio 1.38 L (1.60-3.17) Ratio Urine Protein Trace H (Negative) Urine Ketones 2+ H (Negative) Urine Bilirubin 1+ H (Negative) 12/29/24 Range/Units 07:08 WBC (4.50-10.00) 10*3/uL RDW (11.5-14.5) % Plt Count (140-440) 10*3/uL Lymphocytes # (0.90-5.00) 10*3/uL Eosinophils # (0.04-0.35) 10*3/uL Carbon Dioxide (22-30) mmol/L Anion Gap (4.00-12.00) mmol/L Calcium (8.7-10.3) mg/dL Total Bilirubin (0.2-1.3) mg/dL ALT (10-49) U/L Creatine Kinase (55-170) U/L Troponin I 0.107 H* (0.000-0.034) ng/mL Albumin (3.8-4.9) g/dL Albumin/Globulin Ratio (1.60-3.17) Ratio Urine Protein (Negative) Urine Ketones (Negative) Urine Bilirubin (Negative) Assessment and Plan (1) HIV disease Current Visit: Yes Status: Acute Code(s): B20 - HUMAN IMMUNODEFICIENCY VIRUS [HIV] DISEASE SNOMED Code(s): 65705179 (2) AIDS (acquired immunodeficiency syndrome), CD4 <=200 Current Visit: Yes Status: Acute Code(s): B20 - HUMAN IMMUNODEFICIENCY VIRUS [HIV] DISEASE SNOMED Code(s): 17716285 Plan: 1patient with history of HIV for many years and this patient recently did have significant decline in his clinical condition and not taking his medication not being promoted to the hospital of the patient was found to be on the floor and is being worked up for possible syncope/CVA patient last CD4 count was 87 that was in September 2024 for the patient was started on Biktarvy not very clear if the patient has taken any of his medication 2-we will see if the patient family can bring his home medication that may be s tarted while the patient is in the hospital in addition to PCP prophylaxis with the Bactrim DS Overall prognosis remains to be guarded We will follow on clinical condition and cultures to further adjust medication if needed Thank you for this consultation we will follow the patient along with you Dictation was produced using [employer] dictation software. please excuse any grammatical, word or spelling errors. Time with Patient: Greater than 30
[2024-12-30] MEDS: EMTRICITABINE/TENOFOVIR 200MG/300MG PO SCH (08:55)
[2024-12-30] MEDS: SULFAMETHOX-TMP 800-160MG 1 EACH TAB PO SCH (10:34)
[2024-12-30 10:48] LABS: T Helper Cell (CD4) 71.0 cell/ul (443-1471); T Helper Cell (CD4) % 8.0 % (35-66); T Suppressor Cell (CD8) 727.0 cell/ul (190-832); T Suppressor Cell (CD8) % 80.0 % (9-37); T4/T8 Ratio (CD4:CD8) 0.1 (1.0-3.7)
[2024-12-30 11:44] LABS: HIV-1 RNA DETECTED (Not detected); HIV-1 RNA, Quant 96,535 Copies/mL (<20); LOG HIV Copies/mL 4.98 (<1.30)
--- NOTE | 2024-12-30 13:03 | P.PN ---
Subjective HISTORY OF PRESENT ILLNESS: This is a 84-year-old male with a past medical history significant for coronary artery disease, hypertension, hyperlipidemia, carotid stenosis, and HIV. Patient follows in the office with Dr. Rodríguez but has not been seen since September 2022. We have been asked to see the patient in consultation for elevated troponin. Jcarlos perkins examined at the bedside. Patient is a poor historian. He is alert and oriented x 1. There is no family present. According to the nurse he was found on the floor yesterday by one of his home health care workers. It is unknown how long he was down for. The patient is not able to give much history. He was found to have elevated troponins and was started on IV heparin. The patient currently denies any chest pain or shortness of breath. DIAGNOSTICS: - Multiple EKGs performed revealing sinus mechanism with significant baseline artifact. According to nursing, unable to get a better quality EKG. - Chest xray interstitial lung disease without acute pulmonary process. - Laboratory data: Troponin 0.014. 0.058. 0.091. 0.104. 0.107 - Current home cardiac medications include none. - No previous echocardiogram, stress test, or cardiac catheterization available in EMR for review 12/30/2024 Patient examined this morning to bedside. Patient currently denies chest pain or pressure. He denies shortness of breath. Vital signs are stable. Echocardiogram completed revealing ejection fraction 55 to 60% with no obvious regional wall motion abnormalities. PHYSICAL EXAM: VITAL SIGNS: Reviewed. GENERAL: Well-developed in no acute distress. HEENT: Head is normocephalic. Pupils are equal, round. Sclerae anicteric. Mucous membranes of the mouth are moist. Neck supple. No JVD or thyromegaly LUNGS: Respirations even and unlabored. Lungs essentially clear to auscultation bilaterally. HEART: Regular rate and rhythm. S1 and S2 heard. ABDOMEN: Soft. Nondistended. Nontender. EXTREMITIES: Normal range of motion. No clubbing or cyanosis. Peripheral pulses intact. No lower extremity edema NEUROLOGIC: Awake and alert. Oriented x 1. ASSESSMENT: Status post fall, found on floor with unknown downtime, possible syncope Non-STEMI Coronary artery disease with previous angioplasty of the RCA Hypertension Hyperlipidemia Carotid stenosis History of HIV PLAN: Discontinue IV heparin Continue additional cardiac medications Continue with medical management this time. No plans for cardiac catheterization. We will sign off. Please reconsult if needed. Nurse practitioner note has been reviewed by physician. Signing provider agrees with the documented findings, assessment, and plan of care documented by GOVERNMENT AFFAIRS SPECIALIST as a scribe. Objective - Vital Signs Vital signs: Vital Signs Temp 97.3 F L 12/30/24 07:38 Pulse 72 12/30/24 07:38 Resp 17 12/30/24 07:38 BP 165/74 12/30/24 07:38 Pulse Ox 98 12/30/24 07:45 FiO2 Intake & Output 12/29/24 12/30/24 12/30/24 18:59 06:59 18:59 Intake Total 320.916 102.789 Output Total 200 Balance 120.916 102.789 Intake: Intake, IV Titration 84.916 102.789 Amount Heparin Sod,Pork in 0.45% 84.916 102.789 NaCl 25,000 unit In 0.45 % NaCl 1 250ml.bag @ 12 UNITS/KG/HR 9.798 mls/hr IV .Q24H [facility] Rx#: [id number] Oral 236 Output: Urine 200 Other: # Voids 1 1 # Bowel Movements 1 - Labs CBC & Chem 7: 12/30/24 05:15 12/30/24 05:15 Labs: Abnormal Lab Results - Last 24 Hours (Table) 12/29/24 12/29/24 12/29/24 Range/Units 10:23 12:29 12:29 WBC (4.50-10.00) 10*3/uL RBC (4.40-5.60) 10*6/uL Hgb (13.0-17.0) g/dL Hct (39.6-50.0) % RDW (11.5-14.5) % Plt Count (140-440) 10*3/uL Lymphocytes # (0.90-5.00) 10*3/uL APTT 140.6 H* (22.0-30.0) sec Sodium (137-145) mmol/L % CD4 [place] 8 L (35-66) % Absolute CD4 [place] 71 L (443-1471) cell/ul CD4/CD8 Ratio 0.1 L (1.0-3.7) % CD8 Suppressor 80 H (9-37) % HIV-1 RNA Quant 96,535 H (<20) Copies/mL HIV RNA logcopies/mL Ult 4.98 H (<1.30) HIV-1 RNA (PCR) DETECTED A (Not detected) 12/29/24 12/30/24 12/30/24 Range/Units 20:53 05:15 05:15 WBC 2.73 L (4.50-10.00) 10*3/uL RBC 4.15 L (4.40-5.60) 10*6/uL Hgb 12.5 L (13.0-17.0) g/dL Hct 37.2 L (39.6-50.0) % RDW 15.3 H (11.5-14.5) % Plt Count 63 L (140-440) 10*3/uL Lymphocytes # 0.57 L (0.90-5.00) 10*3/uL APTT 71.4 H (22.0-30.0) sec Sodium 132 L (137-145) mmol/L % CD4 [place] (35-66) % Absolute CD4 [place] (443-1471) cell/ul CD4/CD8 Ratio (1.0-3.7) % CD8 Suppressor (9-37) % HIV-1 RNA Quant (<20) Copies/mL HIV RNA logcopies/mL Ult (<1.30) HIV-1 RNA (PCR) (Not detected)
[2024-12-30 15:36] LABS: African American GFR (CKD) >90 (>60 ml/min/1.73 sqM); Anion Gap 8 mmol/L; Blood Urea Nitrogen 10 mg/dL (9-20); Calcium 9.0 mg/dL (8.4-10.2); Carbon Dioxide 25 mmol/L (22-30); Chloride 98 mmol/L (98-107); Glucose 125 mg/dL (74-99); Non-African American GFR(CKD) >90 (>60 ml/min/1.73 sqM); Potassium 3.5 mmol/L (3.5-5.1); Sodium 131 mmol/L (137-145)
--- NOTE | 2024-12-30 18:15 | P.PN ---
Subjective Progress Note Date: 12/30/24 Hospital Course: Patient is an 84-year-old male with past medical history of HIV who was brought to the ED by EMS after a fall at his house and was admitted for acute encephalopathy and syncopal episode. Cardiology and ID were consulted. Subjective: Patient seen and examined at bedside. No acute events overnight. This morning patient has no complaints he states he has no pain anywhere. He states he is able to eat and has been eating. He denies chest pain, shortness of breath, abdominal pain. Pertinent positives and negatives as discussed above, a complete review of systems was performed and all other systems are negative. Vitals: Signs Reviewed Physical Exam: General: Thin, ill-appearing, nontoxic, no distress, appears at stated age Derm: warm, dry, intact Head: Abrasion and contusion to right forehead, normocephalic, symmetric Eyes: EOMI, anicteric sclera Mouth: no lip lesion, mucus membranes moist Cardiovascular: S1 S2 reg, no murmur, rubs, or gallops Lungs: CTA bilateral, no rhonchi, no rales, no accessory muscle use Abdominal: soft, non-tender to palpation Extremities: no gross muscle atrophy, no edema, bruises present on all extremities Neuro: Alert, Oriented only to self, CNII-XII grossly intact, gait normal Psych: well appearing, appropriate affect Data Received Today: Pertinent Labs: WBC 2.73, hemoglobin 12.5, platelets 63, sodium 131, potassium 3.5, BUN 10, creatinine 0.61, absolute CD4 helper 71, HIV-1 RNA quant 96,535 Imaging: None Assessment and Plan: Encephalopathy, chronic - differential includes HAND, toxoplasmosis, other HIV related infections (TC virus), Alzheimer's Status post syncopal episode NTSEMI - Type 2 Tricuspid regurgitation HIV -Syphillis antibody negative, B12 309 -CD4 count 71 -HIV-1 RNA quant 96,535 -Continue atorvastatin 40 mg at bedtime -Continue Plavix 75 mg daily -Continue HIV medications -ID consulted, recommends prophylaxis Bactrim for PCP -Will speak with immigration case worker regarding placement. Niece has POA. -PT/OT consulted Interstitial lung disease -Continue to monitor Presumed CVA or TX -Continue home Plavix, aspirin DVT ppx: Heparin Code status: No code Anticipated discharge place: SN[facility] Anticipated discharge time: Pending clinical course Gagganpreet Cardenas, DO PGY-1 IM Dictation was produced using [employer] dictation software. please excuse any grammatical, word or spelling errors. I have seen and evaluated the patient today. Discussed with the resident and agree with the residents finding and plan as documented in the resident's note. Changes highlighted in blue font. Objective - Vital Signs Vital signs: Vital Signs Temp 97.3 F L 12/30/24 13:08 Pulse 47 L 12/30/24 13:08 Resp 17 12/30/24 13:08 BP 156/58 12/30/24 13:08 Pulse Ox 98 12/30/24 13:08 FiO2 Intake & Output 12/29/24 12/30/24 12/30/24 18:59 06:59 18:59 Intake Total 320.916 102.789 Output Total 200 Balance 120.916 102.789 Intake: Intake, IV Titration 84.916 102.789 Amount Heparin Sod,Pork in 0.45% 84.916 102.789 NaCl 25,000 unit In 0.45 % NaCl 1 250ml.bag @ 12 UNITS/KG/HR 9.798 mls/hr IV .Q24H [facility] Rx#: [id number] Oral 236 Output: Urine 200 Other: # Voids 1 1 # Bowel Movements 1 0 - Labs CBC & Chem 7: 12/30/24 05:15 12/30/24 14:54 Labs: Abnormal Lab Results - Last 24 Hours (Table) 12/29/24 12/29/24 12/29/24 Range/Units 12:29 12:29 20:53 WBC (4.50-10.00) 10*3/uL RBC (4.40-5.60) 10*6/uL Hgb (13.0-17.0) g/dL Hct (39.6-50.0) % RDW (11.5-14.5) % Plt Count (140-440) 10*3/uL Lymphocytes # (0.90-5.00) 10*3/uL APTT 71.4 H (22.0-30.0) sec Sodium (137-145) mmol/L Creatinine (0.66-1.25) mg/dL Glucose (74-99) mg/dL % CD4 [place] 8 L (35-66) % Absolute CD4 [place] 71 L (443-1471) cell/ul CD4/CD8 Ratio 0.1 L (1.0-3.7) % CD8 Suppressor 80 H (9-37) % HIV-1 RNA Quant 96,535 H (<20) Copies/mL HIV RNA logcopies/mL Ult 4.98 H (<1.30) HIV-1 RNA (PCR) DETECTED A (Not detected) 12/30/24 12/30/24 12/30/24 Range/Units 05:15 05:15 14:54 WBC 2.73 L (4.50-10.00) 10*3/uL RBC 4.15 L (4.40-5.60) 10*6/uL Hgb 12.5 L (13.0-17.0) g/dL Hct 37.2 L (39.6-50.0) % RDW 15.3 H (11.5-14.5) % Plt Count 63 L (140-440) 10*3/uL Lymphocytes # 0.57 L (0.90-5.00) 10*3/uL APTT (22.0-30.0) sec Sodium 132 L 131 L (137-145) mmol/L Creatinine 0.61 L (0.66-1.25) mg/dL Glucose 125 H (74-99) mg/dL % CD4 [place] (35-66) % Absolute CD4 [place] (443-1471) cell/ul CD4/CD8 Ratio (1.0-3.7) % CD8 Suppressor (9-37) % HIV-1 RNA Quant (<20) Copies/mL HIV RNA logcopies/mL Ult (<1.30) HIV-1 RNA (PCR) (Not detected)
[2024-12-30] MEDS: QUEtiapine 25 MG TAB PO SCH (20:04)
[2024-12-31 05:11] LABS: Basophils # (A) 0.01 10*3/uL (0.00-0.10); Basophils % (A) 0.4 %; Eosinophils # (A) 0.06 10*3/uL (0.04-0.35); Eosinophils % (A) 2.3 %; HCT 39.7 % (39.6-50.0); HGB 13.5 g/dL (13.0-17.0); Lymphocytes # (A) 0.53 10*3/uL (0.90-5.00); Lymphocytes % (A) 20.7 %; MCH 30.6 pg (27.0-32.0); MCHC 34.0 g/dL (32.0-37.0); MCV 90.0 fL (80.0-97.0); Monocytes # (A) 0.21 10*3/uL (0.20-1.00); Monocytes % (A) 8.2 %; Neutrophils # (A) 1.74 10*3/uL (1.80-7.70); Neutrophils % (A) 68.0 %; RBC 4.41 10*6/uL (4.40-5.60); RDW 14.8 % (11.5-14.5); WBC 2.56 10*3/uL (4.50-10.00)
[2024-12-31 05:14] LABS: Platelet Count 65 10*3/uL (140-440)
[2024-12-31 05:41] LABS: African American GFR (CKD) >90 (>60 ml/min/1.73 sqM); Anion Gap 7 mmol/L; Blood Urea Nitrogen 8 mg/dL (9-20); Calcium 9.1 mg/dL (8.4-10.2); Carbon Dioxide 28 mmol/L (22-30); Chloride 99 mmol/L (98-107); Glucose 109 mg/dL (74-99); Non-African American GFR(CKD) 86 (>60 ml/min/1.73 sqM); Potassium 3.3 mmol/L (3.5-5.1); Sodium 134 mmol/L (137-145)
--- NOTE | 2024-12-31 08:34 | P.PN ---
Subjective Progress Note Date: 12/30/24 Principal diagnosis: Reason for follow-up is HIV/AIDS Patient is a 84-year-old male with a past medical history significant for HIV for many years and the patient used to follow-up with me in the outpatient setting and the patient was initially on combination of Truvada Tivicay and prezcobix for many years subsequently lost to follow-up was brought in the office in September 2024 he did have a genotype and was prescribed Biktarvy which was never filled and now has been brought to the hospital as the patient was found on the floor concerning for a fall/syncopal episode. On today's evaluation that is 12/30/2024,the patient remains to be afebrile he is breathing comfortably denies current oxygen slightly weak but underweight good historian no vomiting diarrhea or any other changes reported by the daughter at the bedside. Patient white count is 2.73 creatinine 0.73 HIV RNA is 96,535 with a CD4 count of 71 Objective - Vital Signs Vital signs: Vital Signs Temp 97.3 F L 12/30/24 13:08 Pulse 56 L 12/30/24 19:12 Resp 17 12/30/24 19:12 BP 131/63 12/30/24 19:12 Pulse Ox 98 12/30/24 19:12 FiO2 Intake & Output 12/30/24 12/30/24 12/31/24 06:59 18:59 06:59 Intake Total 102.789 Balance 102.789 Intake: Intake, IV Titration 102.789 Amount Heparin Sod,Pork in 0.45% 102.789 NaCl 25,000 unit In 0.45 % NaCl 1 250ml.bag @ 12 UNITS/KG/HR 9.798 mls/hr IV .Q24H [facility] Rx#: [id number] Other: # Voids 1 1 # Bowel Movements 1 - Exam GENERAL DESCRIPTION: An elderly male lying in bed in no distress RESPIRATORY SYSTEM: Unlabored breathing , decreased breath sounds at bases HEART: S1 S2 regular rate and rhythm , ABDOMEN: Soft , no tenderness EXTREMITIES: No edema feet - Labs CBC & Chem 7: 12/31/24 04:30 12/31/24 04:30 Labs: Abnormal Lab Results - Last 24 Hours (Table) 12/29/24 12/29/24 12/30/24 Range/Units 12:29 12:29 05:15 WBC 2.73 L (4.50-10.00) 10*3/uL RBC 4.15 L (4.40-5.60) 10*6/uL Hgb 12.5 L (13.0-17.0) g/dL Hct 37.2 L (39.6-50.0) % RDW 15.3 H (11.5-14.5) % Plt Count 63 L (140-440) 10*3/uL Lymphocytes # 0.57 L (0.90-5.00) 10*3/uL Sodium (137-145) mmol/L Creatinine (0.66-1.25) mg/dL Glucose (74-99) mg/dL % CD4 [place] 8 L (35-66) % Absolute CD4 [place] 71 L (443-1471) cell/ul CD4/CD8 Ratio 0.1 L (1.0-3.7) % CD8 Suppressor 80 H (9-37) % HIV-1 RNA Quant 96,535 H (<20) Copies/mL HIV RNA logcopies/mL Ult 4.98 H (<1.30) HIV-1 RNA (PCR) DETECTED A (Not detected) 12/30/24 12/30/24 Range/Units 05:15 14:54 WBC (4.50-10.00) 10*3/uL RBC (4.40-5.60) 10*6/uL Hgb (13.0-17.0) g/dL Hct (39.6-50.0) % RDW (11.5-14.5) % Plt Count (140-440) 10*3/uL Lymphocytes # (0.90-5.00) 10*3/uL Sodium 132 L 131 L (137-145) mmol/L Creatinine 0.61 L (0.66-1.25) mg/dL Glucose 125 H (74-99) mg/dL % CD4 [place] (35-66) % Absolute CD4 [place] (443-1471) cell/ul CD4/CD8 Ratio (1.0-3.7) % CD8 Suppressor (9-37) % HIV-1 RNA Quant (<20) Copies/mL HIV RNA logcopies/mL Ult (<1.30) HIV-1 RNA (PCR) (Not detected) Assessment and Plan (1) HIV disease Current Visit: Yes Status: Acute Code(s): B20 - HUMAN IMMUNODEFICIENCY VIRUS [HIV] DISEASE SNOMED Code(s): 69698984 (2) AIDS (acquired immunodeficiency syndrome), CD4 <=200 Current Visit: Yes Status: Acute Code(s): B20 - HUMAN IMMUNODEFICIENCY VIRUS [HIV] DISEASE SNOMED Code(s): 70567109 Plan: 1patient with history of HIV for many years and this patient recently did have significant decline in his clinical condition and not taking his medication not being promoted to the hospital of the patient was found to be on the floor and is being worked up for possible syncope/CVA patient last CD4 count was 87 that w as in September 2024 for the patient was started on Biktarvy not very clear if the patient has taken any of his medication 2-patient care has been discussed in detail with the patient daughter encouraged to get his Biktarvy filled at his pharmacy and bring the medication to the hospital so it can be dispensed as that will help his HIV status/possible HIV/AIDS-related dementia Dictation was produced using [employer] dictation software. please excuse any grammatical, word or spelling errors. Time with Patient: Less than 30
[2024-12-31] MEDS: POTASSIUM CHLORIDE ER 20 MEQ TAB.ER PO STA (09:44)
[2024-12-31] MEDS: ENOXAPARIN 40 MG/0.4 ML SYRINGE SQ SCH (09:54)
--- NOTE | 2024-12-31 13:58 | P.PN ---
Subjective Progress Note Date: 12/31/24 Hospital Course: Patient is an 84-year-old male with past medical history of HIV who was brought to the ED by EMS after a fall at his house and was admitted for acute encephalopathy and syncopal episode. Significant vitals in the ED were afebrile, HR 73, RR 18, BP 165/86, 98% on room air. Significant ED labs showed WBC 3.25, platelets 71, sodium 142, potassium 4.3, bicarb 18, BUN 14, creatinine 0.84, total bilirubin 1.6, troponins trended upwards to 0.107. UA was unremarkable, UDS unremarkable. Cardiology and ID were consulted. Cardiology obtained an echo and recommended continuing atorvastatin, Plavix, aspirin, metoprolol succinate and did not recommend a cardiac catheterization at this time. Echo shows EF of 55 to 60%, moderate pulmonary hypertension, moderate to severe tricuspid regurgitation. ID was consulted regarding patient's HIV and CD4 count of 71 and recommended starting patient on Bactrim for prophylaxis for PCP. Spoke to the patient's family regarding patient's condition who states there has been is steadily decline in patient's mental status and has seen a neurologist outpatiently. Patient's family's states patient lives alone and is no longer taking care of himself. Patient's niece who is POA is agreeable with sending patient to shelter facility. Subjective: Patient seen and examined at bedside. No acute events overnight. This morning patient was sleeping. Patient denied any complaints at this time. Pertinent positives and negatives as discussed above, a complete review of systems was performed and all other systems are negative. Vitals: Signs Reviewed Physical Exam: General: nontoxic, no distress, appears at stated age Derm: warm, dry, intact Head: Abrasion and contusion to right forehead, normocephalic, symmetric Eyes: EOMI, anicteric sclera Mouth: no lip lesion, mucus membranes moist Cardiovascular: S1 S2 reg, no murmur, rubs, or gallops Lungs: Limited due to patient positioning. Abdominal: soft, non-tender to palpation Extremities: no gross muscle atrophy, no edema, contusions present in all extremities Neuro: Alert but unable to assess orientation, CNII-XII grossly intact, gait normal Psych: well appearing, appropriate affect Data Received Today: Pertinent Labs: WBC cell 2.56, hemoglobin 13.5, platelets 65, sodium 134, pota ssium 3.3, BUN 8, creatinine 0.74, CD4 71, HIV1 RNA quant 96,535. Imaging: None Assessment and Plan: Encephalopathy, chronic - differential includes HAND, toxoplasmosis, other HIV related infections (TC virus), Alzheimer's Status post syncopal episode NTSEMI - Type 2 Tricuspid regurgitation HIV -Syphillis antibody negative, B12 309 -CD4 count 71 -HIV-1 RNA quant 96,535 -Continue atorvastatin 40 mg at bedtime -Continue Plavix 75 mg daily -Continue HIV medications -ID consulted, recommends prophylaxis Bactrim for PCP -Spoke to case management, patient will be able to be discharged tomorrow -PT/OT consulted -Heparin IV was discontinued and Lovenox was started Hypokalemia -Ordered 40 mEq of potassium -Will continue to monitor Interstitial lung disease -Continue to monitor Presumed CVA or [place] -Continue home Plavix, aspirin DVT ppx: Lovenox 40 SQ daily Code status: No code Anticipated discharge place: SNF Anticipated discharge time: 24 to 48 hours Amelia Cardenas DO PGY-1 IM Dictation was produced using [employer] dictation software. please excuse any grammatical, word or spelling errors. I have seen and evaluated the patient today. Discussed with the resident and ag ree with the residents finding and plan as documented in the resident's note. Changes highlighted in blue font. Objective - Vital Signs Vital signs: Vital Signs Temp 97.3 F L 12/30/24 13:08 Pulse 56 L 12/30/24 19:12 Resp 17 12/30/24 19:12 BP 131/63 12/30/24 19:12 Pulse Ox 98 12/30/24 19:12 FiO2 Intake & Output 12/30/24 12/31/24 12/31/24 18:59 06:59 18:59 Other: # Voids 1 1 # Bowel Movements 1 1 - Labs CBC & Chem 7: 12/31/24 04:30 12/31/24 04:30 Labs: Abnormal Lab Results - Last 24 Hours (Table) 12/30/24 12/31/24 12/31/24 Range/Units 14:54 04:30 04:30 WBC 2.56 L (4.50-10.00) 10*3/uL RDW 14.8 H (11.5-14.5) % Plt Count 65 L (140-440) 10*3/uL Neutrophils # 1.74 L (1.80-7.70) 10*3/uL Lymphocytes # 0.53 L (0.90-5.00) 10*3/uL Sodium 131 L 134 L (137-145) mmol/L Potassium 3.3 L (3.5-5.1) mmol/L BUN 8 L (9-20) mg/dL Creatinine 0.61 L (0.66-1.25) mg/dL Glucose 125 H 109 H (74-99) mg/dL
--- NOTE | 2024-12-31 22:24 | P.PN ---
Subjective Progress Note Date: 12/31/24 Principal diagnosis: Reason for follow-up is HIV/AIDS Patient is a 84-year-old male with a past medical history significant for HIV for many years and the patient used to follow-up with me in the outpatient setting and the patient was initially on combination of Truvada Tivicay and prezcobix for many years subsequently lost to follow-up was brought in the office in September 2024 he did have a genotype and was prescribed Biktarvy which was never filled and now has been brought to the hospital as the patient was found on the floor concerning for a fall/syncopal episode. On today's evaluation that is 12/31/2024,the patient remains to be afebrile, patient is on room air not requiring supplemental oxygen and seem to be breathing comfortably no distress patient remains with lethargic though he did open his eyes slightly to his name but did not answer any question no vomiting or diarrhea has been reported. Patient white count is 2.56, creatinine 0.74 Objective - Vital Signs Vital signs: Vital Signs Temp 97.3 F L 12/30/24 13:08 Pulse 56 L 12/31/24 14:00 Resp 17 12/31/24 14:00 BP 131/63 12/30/24 19:12 Pulse Ox 98 12/30/24 19:12 FiO2 Intake & Output 12/30/24 12/31/24 12/31/24 18:59 06:59 18:59 Output Total 450 Balance -450 Output: Urine 450 Other: # Voids 1 1 # Bowel Movements 1 1 - Exam GENERAL DESCRIPTION: An elderly male lying in bed in no distress RESPIRATORY SYSTEM: Unlabored breathing , decreased breath sounds at bases HEART: S1 S2 regular rate and rhythm , ABDOMEN: Soft , no tenderness EXTREMITIES: No edema feet - Labs CBC & Chem 7: 12/31/24 04:30 12/31/24 04:30 Labs: Abnormal Lab Results - Last 24 Hours (Table) 12/30/24 12/31/24 12/31/24 Range/Units 14:54 04:30 04:30 WBC 2.56 L (4.50-10.00) 10*3/uL RDW 14.8 H (11.5-14.5) % Plt Count 65 L (140-440) 10*3/uL Neutrophils # 1.74 L (1.80-7.70) 10*3/uL Lymphocytes # 0.53 L (0.90-5.00) 10*3/uL Sodium 131 L 134 L (137-145) mmol/L Potassium 3.3 L (3.5-5.1) mmol/L BUN 8 L (9-20) mg/dL Creatinine 0.61 L (0.66-1.25) mg/dL Glucose 125 H 109 H (74-99) mg/dL Assessment and Plan (1) HIV disease Current Visit: Yes Status: Acute Code(s): B20 - HUMAN IMMUNODEFICIENCY VIRUS [HIV] DISEASE SNOMED Code(s): 93708135 (2) AIDS (acquired immunodeficiency syndrome), CD4 <=200 Current Visit: Yes Status: Acute Code(s): B20 - HUMAN IMMUNODEFICIENCY VIRUS [HIV] DISEASE SNOMED Code(s): 58479812 Plan: 1patient with history of HIV for many years and this patient recently did have significant decline in his clinical condition and not taking his medication not being promoted to the hospital of the patient was found to be on the floor and is being worked up for possible syncope/CVA patient last CD4 count was 87 that was in September 2024 for the patient was started on Biktarvy not very clear if the patient has taken any of his medication 2-patient care has been discussed in detail with the patient daughter encouraged to get his Biktarvy filled at his pharmacy as a prescription was rewritten and sent again to the patient pharmacy for now continue with the Bactrim DS 1 daily for PCP prophylaxis prognosis remains to be guarded and may consider hospice oriented care especially the patient is refusing to take his medication Dictation was produced using [employer] dictation software. please excuse any grammatical, word or spelling errors. Time with Patient: Less than 30
[2024-12-31] MEDS: METOPROLOL TARTRATE 12.5 MG TAB PO STA (22:49)
[2025-01-01 03:08] LABS: Anion Gap 10.40 mmol/L (4.00-12.00); BUN/Creat Ratio 11.25 Ratio (12.00-20.00); Blood Urea Nitrogen 9.0 mg/dL (9.0-27.0); Calcium 8.5 mg/dL (8.7-10.3); Carbon Dioxide 24.6 mmol/L (21.6-31.8); Chloride 100 mmol/L (96-109); Glucose 107 mg/dL (70-110); Magnesium 1.8 mg/dL (1.5-2.4); Potassium 4.3 mmol/L (3.5-5.5); Sodium 135 mmol/L (135-145)
[2025-01-01 07:40] LABS: African American GFR (CKD) >90 (>60 ml/min/1.73 sqM); Anion Gap 4 mmol/L; Blood Urea Nitrogen 9 mg/dL (9-20); Calcium 9.1 mg/dL (8.4-10.2); Carbon Dioxide 27 mmol/L (22-30); Chloride 101 mmol/L (98-107); Glucose 98 mg/dL (74-99); Magnesium 1.9 mg/dL (1.6-2.3); Non-African American GFR(CKD) 85 (>60 ml/min/1.73 sqM); Potassium 4.0 mmol/L (3.5-5.1); Sodium 132 mmol/L (137-145)
[2025-01-01 07:44] LABS: Basophils # (A) 0.01 10*3/uL (0.00-0.10); Basophils % (A) 0.4 %; Eosinophils # (A) 0.07 10*3/uL (0.04-0.35); Eosinophils % (A) 2.5 %; HCT 38.2 % (39.6-50.0); HGB 13.0 g/dL (13.0-17.0); Lymphocytes # (A) 0.69 10*3/uL (0.90-5.00); Lymphocytes % (A) 24.6 %; MCH 30.7 pg (27.0-32.0); MCHC 34.0 g/dL (32.0-37.0); MCV 90.1 fL (80.0-97.0); Monocytes # (A) 0.27 10*3/uL (0.20-1.00); Monocytes % (A) 9.6 %; Neutrophils # (A) 1.75 10*3/uL (1.80-7.70); Neutrophils % (A) 62.5 %; RBC 4.24 10*6/uL (4.40-5.60); RDW 15.2 % (11.5-14.5); WBC 2.80 10*3/uL (4.50-10.00)
[2025-01-01 07:45] VITALS: BP 133/74; PULSE 75; RESP 15; TEMP 97.9
[2025-01-01 09:05] LABS: Platelet Count 79 10*3/uL (140-440)
--- NOTE | 2025-01-01 11:26 | P.DS ---
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 Significant vitals in the ED were afebrile, HR 73, RR 18, BP 165/86, 98% on room air. Significant ED labs showed WBC 3.25, platelets 71, sodium 142, potassium 4.3, bicarb 18, BUN 14, creatinine 0.84, total bilirubin 1.6, troponins trended upwards to 0.107. UA was unremarkable, UDS unremarkable. Patient was admitted to the inpatient team. Patient's CD4 count 71, nonreactive to syphilis antibody, and cryptococcal antigen pending. Cardiology and ID were consulted. Cardiology obtained an echo and recommended continuing atorvastatin, Plavix, aspirin, metoprolol succinate and did not recommend a cardiac catheterization at this time. Echo shows EF of 55 to 60%, moderate pulmonary hypertension, moderate to severe tricuspid regurgitation. ID was consulted regarding patient's HIV and CD4 count of 71 and recommended starting patient on Bactrim for prophylaxis for PCP. Spoke to the patient's family regarding patient's condition who states there has been is steadily decline in patient's mental status and has seen a neurologist outpatiently. Patient's family's states patient lives alone and is no longer taking care of himself. Patient's niece who is POA is agreeable with sending patient to [facility] facility. Significant labs on discharge include WBC 2.80, hemoglobin 13.0, platelets 79, sodium 132, potassium 4.0, BUN 9, creatinine 0.77, magnesium 1.9. On discharge, patient is hemodynamically stable. Patient to continue aspirin, Bactrim, Lipitor, Lopressor, Plavix, and Seroquel. Patient is also to take his HIV medication, Biktarvy, when patient's family brings it in to the SNF. Patient to follow-up with PCP and infectious disease. Patient seen and examined at bedside. This morning patient was sleeping comfortably in bed. He has no new complaints at this time. Vital signs reviewed and stable. Physical examination: Vital signs reviewed General: non toxic, no distress, appears at stated age, normal weight Derm: warm, contusions and abrasions present on all extremities Head: Contusion to right forehead, normocephalic, symmetric Eyes: EOMI, anicteric sclera, pupils equal round reactive to light ENT: Nose and ears atraumatic Mouth: no lip lesion, mucus membranes moist Cardiovascular: S1S2 reg, no murmur, no edema Lungs: Limited due to patient's positioning Abdominal: soft, nontender to palpation Ext: no gross muscle atrophy, no edema Neuro: CN II-XI grossly intact, no gross focal neuro deficits Psych: Alert, oriented to self A total of greater than 30 minutes of time were spent preparing this complex discharge summary. Patient was discharged on 01/01/2025. Amelia Cardenas DO PGY-1 IM Dictation was produced using [employer] dictation software. Please excuse any grammatical, word or spelling errors. I have seen and evaluated the patient today. Discussed with the resident and agree with the residents finding and plan as documented in the resident's note. Changes highlighted in blue font. Patient Condition at Discharge: Stable Plan - Discharge Summary New Discharge Prescriptions: New Aspirin [Adult Low Dose Aspirin EC] 81 mg PO DAILY #30 tab Sulfamethox-Tmp 800-160Mg [Bactrim DS 800-160 mg] 1 each PO DAILY tab Atorvastatin [Lipitor] 40 mg PO HS tab Metoprolol Tartrate [Lopressor] 12.5 mg PO BID tab Clopidogrel [Plavix] 75 mg PO DAILY tab QUEtiapine [SEROquel] 25 mg PO HS tab Bictegrav/Emtricit/Tenofov Ala [Biktarvy 50-200-25 mg Tablet] 1 each PO DAILY #30 tablet Discharge Medication List Aspirin [Adult Low Dose Aspirin EC] 81 mg PO DAILY #30 tab 01/01/25 [Rx] Atorvastatin [Lipitor] 40 mg PO HS tab 01/01/25 [Rx] Bictegrav/Emtricit/Tenofov Ala [Biktarvy 50-200-25 mg Tablet] 1 each PO DAILY #30 tablet 01/01/25 [Rx] Clopidogrel [Plavix] 75 mg PO DAILY tab 01/01/25 [Rx] Metoprolol Tartrate [Lopressor] 12.5 mg PO BID tab 01/01/25 [Rx] QUEtiapine [SEROquel] 25 mg PO HS tab 01/01/25 [Rx] Sulfamethox-Tmp 800-160Mg [Bactrim DS 800-160 mg] 1 each PO DAILY tab 01/01/25 [Rx] Follow up Appointment(s)/Referral(s): Gildardo Kamara DO [Primary Care Provider] - 1-2 days Ann Marie Babb MD [STAFF PHYSICIAN] - 1 Week Patient Instructions/Handouts: Dementia (GEN) Activity/Diet/Wound Care/Special Instructions: Please take HIV medication (Biktarvy) when your family brings it to the [facility] facility and follow up with your PCP and infectious disease. Discharge Disposition: TRANSFER TO SNF/ECF
--- NOTE | 2025-01-01 13:28 | P.PN ---
Subjective Progress Note Date: 01/01/25 Principal diagnosis: Reason for follow-up is HIV/AIDS Patient is a 84-year-old male with a past medical history significant for HIV for many years and the patient used to follow-up with me in the outpatient setting and the patient was initially on combination of Truvada Tivicay and prezcobix for many years subsequently lost to follow-up was brought in the office in September 2024 he did have a genotype and was prescribed Biktarvy which was never filled and now has been brought to the hospital as the patient was found on the floor concerning for a fall/syncopal episode. On today's evaluation that is 01/01/2025 patient continues to be afebrile the patient is breathing comfortably on room air, the patient is doing more awake and alert today and is breathing comfortably no chest pain or cough no abdominal pain or diarrhea. Patient did have white count of 2.80, creatinine 0.77 Objective - Vital Signs Vital signs: Vital Signs Temp 97.9 F 01/01/25 07:00 Pulse 75 01/01/25 07:00 Resp 15 01/01/25 07:00 BP 133/74 01/01/25 07:00 Pulse Ox 98 01/01/25 07:00 FiO2 Intake & Output 12/31/24 01/01/25 01/01/25 18:59 06:59 18:59 Intake Total 118 118 Output Total 450 Balance -450 118 118 Intake: Oral 118 118 Output: Urine 450 Other: # Voids 3 # Bowel Movements 1 - Exam GENERAL DESCRIPTION: An elderly male lying in bed in no distress RESPIRATORY SYSTEM: Unlabored breathing , decreased breath sounds at bases HEART: S1 S2 regular rate and rhythm , ABDOMEN: Soft , no tenderness EXTREMITIES: No edema feet - Labs CBC & Chem 7: 01/01/25 06:09 01/01/25 06:09 Labs: Abnormal Lab Results - Last 24 Hours (Table) 12/31/24 01/01/25 01/01/25 Range/Units 23:15 06:09 06:09 WBC 2.80 L (4.50-10.00) 10*3/uL RBC 4.24 L (4.40-5.60) 10*6/uL Hct 38.2 L (39.6-50.0) % RDW 15.2 H (11.5-14.5) % Plt Count 79 L (140-440) 10*3/uL Neutrophils # 1.75 L (1.80-7.70) 10*3/uL Lymphocytes # 0.69 L (0.90-5.00) 10*3/uL Sodium 132 L (137-145) mmol/L BUN/Creatinine Ratio 11.25 L (12.00-20.00) Ratio Calcium 8.5 L (8.7-10.3) mg/dL Assessment and Plan (1) HIV disease Current Visit: Yes Status: Acute Code(s): B20 - HUMAN IMMUNODEFICIENCY VIRUS [HIV] DISEASE SNOMED Code(s): 29095242 (2) AIDS (acquired immunodeficiency syndrome), CD4 <=200 Current Visit: Yes Status: Acute Code(s): B20 - HUMAN IMMUNODEFICIENCY VIRUS [HIV] DISEASE SNOMED Code(s): 45246210 Plan: 1patient with history of HIV for many years and this patient recently did have significant decline in his clinical condition and not taking his medication not being promoted to the hospital of the patient was found to be on the floor and is being worked up for possible syncope/CVA patient last CD4 count was 87 that was in September 2024 for the patient was started on Biktarvy not very clear if the patient has taken any of his medication 2-patient care has been discussed in detail with the patient family member prescription was sent again to the patient pharmacy once arrive patient will be able to start taking his Biktarvy and for now continue with the Bactrim DS 1 daily for PCP prophylaxis Dictation was produced using [employer] dictation software. please excuse any grammatical, word or spelling errors. Time with Patient: Less than 30
== END 2025-01-01 15:03 | DRG 977 ==
LOC: EC 16:50 → 6NMEDSUR 20:08 → OBSVTOIN 20:09 → 6NMEDSUR 22:39
PROVIDERS: ADMIT Internal Medicine; ATTEND Internal Medicine
DX: B20 Human immunodeficiency virus [HIV] disease (principal); I21.A1 Myocardial infarction type 2; I27.20 Pulmonary hypertension, unspecified; G32.89 Other specified degenerative disorders of nervous system in diseases classified elsewhere; I10 Essential (primary) hypertension; I07.1 Rheumatic tricuspid insufficiency; I65.29 Occlusion and stenosis of unspecified carotid artery; J84.9 Interstitial pulmonary disease, unspecified; R55 Syncope and collapse; E78.5 Hyperlipidemia, unspecified; E87.6 Hypokalemia; F17.200 Nicotine dependence, unspecified, uncomplicated; I25.10 Atherosclerotic heart disease of native coronary artery without angina pectoris; W19.XXXA Unspecified fall, initial encounter; Z60.2 Problems related to living alone; Y92.009 Unspecified place in unspecified non-institutional (private) residence as the place of occurrence of the external cause; S00.81XA Abrasion of other part of head, initial encounter; Z79.02 Long term (current) use of antithrombotics/antiplatelets; Z79.899 Other long term (current) drug therapy
CPT/HCPCS: 36415; 70450; 71045; 72125; 72170; 80048; 80053; 80306; 80320; 81003; 82550; 82607; 83605; 83735; 84484; 85025; 85027; 85610; 85730; 86360; 86780; 86850; 86900; 86901; 87536; 90471; 90715; 93005; 93306; 96360; 96361; 99285